=== PATIENT | female | born 1990 | race Caucasian/White ===

== ENCOUNTER 2021-02-10 08:46 | Outpatient (REF) | payer OTHER, SELFPAY ==
--- NOTE | ~2021-02-10 | XR_ITS ---
EXAMINATION: XR KNEE, LEFT CLINICAL INFORMATION: Left knee pain. COMPARISON: None TECHNIQUE: Four views of the left knee. FINDINGS: There is mild loss of medial and patellofemoral compartment joint space with tricompartmental periarticular spurring. There are no loose bodies, bony erosive changes or abnormal joint effusion. The soft tissues are normal. XR/XR knee LT 3V IMPRESSION: Tricompartment arthritic changes left knee. There is no acute fracture, dislocation or joint effusion seen.
[2021-02-10 10:37] LABS: MANUAL DIFF FLAG NO
[2021-02-10 11:02] LABS: Basophils Percent Auto 0.5 % (0-2); Eosinophils Absolute Auto 0.1 X10*3/uL (0.0-0.4); Eosinophils Percent Auto 1.6 % (0-4); Hematocrit 42.1 % (37-47); Imm Gran Abs Auto 0.02 X10*3/uL (0.00-0.03); Imm Gran Pct Auto 0.3 % (0.0-0.4); Lymphocytes Absolute Auto 2.6 X10*3/uL (1.2-4.9); Lymphocytes Percent Auto 33.9 % (20-40); Mean Corpuscular HGB Conc 33.3 g/dl (31.0-35.0); Mean Corpuscular Volume 93.3 fL (80-98); Mean Platelet Volume 10.4 fL (9.4-12.3); Monocytes Absolute Auto 0.5 X10*3/uL (0.1-1.2); Monocytes Percent Auto 5.9 % (2-11); Neutrophils Absolute Auto 4.4 X10*3/uL (2.0-8.3); Neutrophils Percent Auto 57.8 % (45-73); Platelet Count 247 X10*3/uL (160-400); Red Blood Count 4.51 X10*6/uL (4.20-5.50); White Blood Count 7.7 X10*3/uL (4.8-10.8)
[2021-02-10 11:08] LABS: Alanine Aminotransferase 9 U/L (0-31); Albumin Level 4.3 g/dL (3.5-5.0); Alkaline Phosphatase 59 U/L (39-117); Anion Gap 14 (12-20); Aspartate Amino Transferase 11 U/L (5-31); Bilirubin Total 0.6 mg/dL (0.0-1.0); Blood Urea Nitrogen 8 mg/dL (9-16); Calcium 9.4 mg/dL (8.4-10.2); Carbon Dioxide 22 mmol/L (22-29); Chloride 108 mmol/L (96-108); Cholesterol 113 mg/dL; Estimated Glomerular Filt Rate > 60; Glucose Fasting 92 mg/dL (60-99); HDL Cholesterol 37 mg/dL; LDL Cholesterol Calculated 65 mg/dl; Potassium 4.2 mmol/L (3.3-5.1); Sodium 140 mmol/L (135-145); Triglycerides 59 mg/dL
[2021-02-10 11:28] LABS: Thyroid Stimulating Hormone 2.63 uIU/mL (0.32-4.0)
== END 2021-02-10 08:47 | disposition home or self-care (01) ==
LOC: HO.LAB 08:46
PROVIDERS: PCP Internal Medicine; Visit Provider Internal Medicine
DX: M25.562 Pain in left knee (principal); E66.01 Morbid (severe) obesity due to excess calories
CPT/HCPCS: 36415; 73562; 80053; 80061; 84443; 85025

== ENCOUNTER → 2021-03-01 11:21 | Outpatient (BNVA) | payer OTHER, SELFPAY | PROVIDERS: PCP Internal Medicine; Visit Provider Advanced Practice Midwife ==

== ENCOUNTER → 2021-03-17 08:55 | Outpatient (BNVA) | payer OTHER, SELFPAY | PROVIDERS: PCP Internal Medicine; Visit Provider Advanced Practice Midwife ==

== ENCOUNTER 2021-03-22 13:10 | Outpatient (REF) | payer OTHER, SELFPAY ==
[2021-03-25 19:06] LABS: HPV mRNA E6/E7 rflx Not Detected (Not Detected)
== END 2021-03-22 13:11 | disposition home or self-care (01) ==
LOC: HO.LAB 13:10
PROVIDERS: PCP Internal Medicine; Visit Provider Advanced Practice Midwife
DX: Z30.432 Encounter for removal of intrauterine contraceptive device (principal)
CPT/HCPCS: 58301; 87624; 88142

== ENCOUNTER 2021-03-23 07:47 | Outpatient (REF) | payer OTHER, SELFPAY ==
--- NOTE | ~2021-03-23 | XR_ITS ---
EXAMINATION: KNEE X-RAY CLINICAL INFORMATION: Pain COMPARISON: Previous x-ray 02/10/2021 TECHNIQUE: Standing AP view of both knees and sunrise view of the left knee FINDINGS: Standing AP view of both knees demonstrates degenerative change at the femoral tibial joints with mild bilateral medial femoral tibial joint space narrowing, right greater than left and small lateral femoral tibial joint space osteophytes, left greater than right. [place]illie view of the left knee is unremarkable. XR/XR knee LT 2V IMPRESSION: Mild degenerative changes at the femoral tibial joints.
--- NOTE | ~2021-03-23 | XR_ITS ---
EXAMINATION: KNEE X-RAY CLINICAL INFORMATION: Pain COMPARISON: Previous x-ray 02/10/2021 TECHNIQUE: Standing AP view of both knees and sunrise view of the left knee FINDINGS: Standing AP view of both knees demonstrates degenerative change at the femoral tibial joints with mild bilateral medial femoral tibial joint space narrowing, right greater than left and small lateral femoral tibial joint space osteophytes, left greater than right. [place] view of the left knee is unremarkable. XR/XR knee standing BI IMPRESSION: Mild degenerative changes at the femoral tibial joints.
== END 2021-03-23 07:48 | disposition home or self-care (01) ==
LOC: HO.HOSX 07:47
PROVIDERS: Visit Provider Physician Assistant
DX: M17.12 Unilateral primary osteoarthritis, left knee (principal); M25.561 Pain in right knee
CPT/HCPCS: 73560; 73565; 99202

== ENCOUNTER 2021-07-06 16:00 | Outpatient (RCR) | payer OTHER, SELFPAY ==
--- NOTE | 2021-05-11 14:36 | MHC.PT.EP ---
[facility] [place] Office [place] Office [place] Office [address] Blane Romeo [address] [phone] F: [phone] F: [phone] F: [phone] F: [phone] Physical Therapy Plan of Care Date of Evaluation: Date of Surgery: Diagnosis: LEFT KNEE OA Assessment: 30 YO FEMALE REF TO PT W H/O FALLING 01/21/21 ONTO HER BUTTOCKS W LEFT KNEE FLEXED - SHE WAS REF TO ORTHO AND DX W LEFT KNEE OA AND REF TO PT. 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 FUNCTIONALLY, Pt REPORTS DIFFIC SLEEPING, W STAIR MGMT, SITTING > 1HR, STANDING, AND INCR ACTIVITY. SHE WOULD BENEFIT FROM PT TO ADDRESS PAIN AND SX MGMT FOR PROBABLE TRAUMATIC LEFT PFPS W PRE-EXISTING MECHANICAL DEFICITS. Frequency and Duration: The patient will be seen 2 x WK x 5 WKS Short Term Goals: Pt'S LEFT KNEE PAIN DECR TO 2/10 W REG ADLs IN 2 WKS Pt DEMON IMPROVED LEFT KNEE FLEX AND KENN HIP IR IN 2 WKS Pt DEMON AMB ON TM x 10 MIN IN 3 WKS Event Set Up Specialist Goals: Pt INDEP W HEP AND SELF-SX MGMT TECHN IN 5 WKS Pt DEMON RETURN TO REG ADLs AND A FITNESS ROUTINE, EVIDENT W IMPROVED LEFT SCORE BY 10 POINTS (AT EVAL 50/80) IN 5 WKS Treatment Plan: Modalities to reduce pain, spasms and effusion. Manual therapy to restore motion and function. Therapeutic exercise to improve strength and flexibility. Neuromuscular re-education for posture and balance. Therapeutic activities to return to functional activities of daily living. Electronically signed by: Sintia Davies, PT Please sign and return to therapist. Thank you for your referral.
--- NOTE | 2021-07-07 14:02 | MHC.PT.DC ---
[facility] [place] Office [place] Office [place] Office [address] Blane Romeo [address] [phone] F: [phone] F: [phone] F: [phone] F: [phone] Physical Therapy Discharge Report Diagnosis: L knee OA Date of Surgery: Date of Evaluation: 05/11/21 Date of Discharge: 07/07/21 Treatments to Date: 10 Cancellations to Date: 3 No Shows to Date: 0 Discharge Status: Achieved Goals Improved Function Discharge Summary: Pt MET PT GOALS AND IS COMPLIANT AND INDEP W HEP, HER LEFT KNEE PAIN IS SIGNIF REDUCED AND SHE HAS RESUMED REG ADLS EVIDENT W IMPROVED LEFT SCORE TO 70/80 ( AT EVAL, HER SCORE WAS 50/80). Pt DEMON INDEP FUNCT MOB , ESPEC SQUATTING AND IS D/C THIS DATE. Electronically signed by: Sintia Davies,PT Please sign and return to therapist. Thank you for your referral.
== END 2021-07-07 14:02 | disposition home or self-care (01) ==
LOC: HO.PT 16:00
PROVIDERS: Visit Provider Physician Assistant
DX: M17.12 Unilateral primary osteoarthritis, left knee (principal)
CPT/HCPCS: 97110; 97140; 97150; 97161; 97530

== ENCOUNTER → 2021-10-26 12:44 | Outpatient (BNVA) | payer OTHER, SELFPAY | PROVIDERS: PCP Internal Medicine; Referring Provider Internal Medicine; Visit Provider Surgery | DX: K64.5 Perianal venous thrombosis (principal) | CPT/HCPCS: 46600; 99202 ==

== ENCOUNTER 2023-08-17 13:36 | Outpatient (AMB) | payer OTHER, SELFPAY ==
[2023-08-17 13:47] VITALS: BP 126/74; BMI 60.2
--- NOTE | 2023-08-17 13:47 | A.OFFVIS_ITS ---
Intake Vital Signs 08/17/23 13:47 Height 5 ft 5 in Weight 362 lb BMI 60.2 BP 126/74 Intake Visit Reasons: control consult Intake Note: would like the mirena Retail Office Associate Required: No Allergies pork derived (porcine) Allergy (Intermediate, Verified 08/17/23 13:49) GI ISSUES SEAFOOD Allergy (Severe, Uncoded 08/17/23 13:49) ANAPHYLAXIS Medication List - Last Reconciled 08/17/23 by Anne Saavedra CNM No Known Home Meds Is last menstrual period known: Yes Last menstrual period: 07/30/23 Post menopausal: No HPI control consult HPI Details Patient is here because she wants to get back on control. She had had the Mirena removed in 2020 with great difficulty by 2 providers. She at the time was trying to get she has decided that now since she has not gotten she feels that that time of opportunity has passed. In addition she has struggled with her weight all her life and has lost weight in the past and then gained it back and now she wants to make a concerted effort to lose the weight and get healthier she went for an eye exam recently and the doctor told her that she might have high blood pressure because of changes he could see in her blood vessels in her eyes. She had had been told she had high blood pressure when she was young but not recently. She has not been screened for diabetes or other issues in a while but her grandmother did of kidney disease recently so she is becoming more concerned about overall health. She is not currently contraceptive thing but she has not gotten so far. She had the Mirena and would like to go back to that. She has appointments set up to see primary care and to see screw machine set up operator tool for annual exams but wants to to work on getting a Mirena and too. She has started drinking a protein shake that is coffee flavored in the morning for her breakfast and trying to avoid carbohydrates and work on eating very healthy and she goes for a walk around the [facility] for her exercise. She became tearful talking about her weight struggles. [facility] Medical History (Updated 08/17/23 @ 14:21 by Anne Saavedra CNM) Asthma Thrombosed external hemorrhoids Left knee pain Migraines Super-super obese Allergic rhinitis Surgical History History of wisdom tooth extraction History of placement of ear tubes History of History of cholecystectomy Family History Mother No problems noted. Father No problems noted. Paternal Aunt Breast cancer Social History Housing: House Alcohol intake: never Patient Tobacco Use Status: Never used Tobacco e-Cigarette/Vaping Use: Never Used Second Hand Smoke Exposure: No Substance Use Type: Marijuana service: No Current occupational status: unemployed Current occupation: rt handed Cognitive needs: No Hearing needs: No Vision needs: No Female Reproductive History Menstrual Age of Menarche: 15 Duration of menses: 6-7 days Date of last menstrual period: 07/30/23 control method: none Total pregnancies: 2 Full term: 1 Number of Living Children: 1 Ab spontaneous: 1 Date of last pap smear: 03/23/21 (negative) Physical Exam Vital Signs: Last Vital Signs BP 126/74 08/17/23 13:47 BMI result Body Mass Index 60.2 Const Other: Deferred except to notice vitals and BMI today Assessment & Plan Assessment & Plan (1) Cervical cancer screening: Comment: Negative Pap 2020 Code(s): Z12.4 - Encounter for screening for malignant neoplasm of cervix (2) Super-super obese: Code(s): E66.01 - Morbid (severe) obesity due to excess calories (3) control counseling: Comment: Will attempt Mirena insertion with next period. Code(s): Z30.09 - Encounter for other general counseling and advice on contraception Plan Discussed and applauded her desire to become healthier and lose the weight acknowledged the challenges of weight loss especially when the obesity has been lifelong. Discussed that we are probably still learning a lot about why it is so difficult to keep weight off and all the changes that happen but the watching what she eats and adding in exercise her the 2 core issues she is already trying to do that and also we discussed and I supported/encouraged that she perhaps have some support to help her stay encouraged on her journey. I offered to place a weight management referral for her while she awaits her primary care appointments and also we discussed and acknowledged the challenge of perhaps putting in a Mirena IU S notes of previous exams and the previous attempt and final ability to withdraw the IUD in 2020 were noted. We will attempt placement in this room but only with her. On 1 of its heaviest days she has been getting regular periods which is good her last period was June 30 and then again on July 30. If this pattern continues she may get her. The day before Thanksgiving but I asked her to call the office as soon as she gets her. And we will try to squeeze her in at to the best of our ability it is not able to be accomplished with this menses we will try for the next but I recommend she protect herself from with condoms going forward. She has her screw machine set up operator tool annual exam scheduled will do testing for STIs at the date of the Mirena insertion attempt. We will use room 3 Orders: Referrals Medical Weight Management Referral E66.01 - Morbid (severe) obesity due to excess calories, Z12.4 - Encounter for screening for malignant neoplasm of cervix, Z30.09 - Encounter for other general counseling and advice on contraception Coding Level of Care Code Est Pt Level 3 (00883) Diagnoses Cervical cancer screening Z12.4 Super-super obese E66.01 control counseling Z30.09
== END 2023-08-17 14:25 | disposition home or self-care (01) ==
PROVIDERS: PCP Internal Medicine; Visit Provider Advanced Practice Midwife
DX: Z12.4 Encounter for screening for malignant neoplasm of cervix (principal); E66.01 Morbid (severe) obesity due to excess calories
CPT/HCPCS: 99213

== ENCOUNTER → 2023-08-17 13:36 | Outpatient (BNVA) | payer OTHER, SELFPAY | PROVIDERS: PCP Internal Medicine; Visit Provider Advanced Practice Midwife | DX: Z12.4 Encounter for screening for malignant neoplasm of cervix (principal); Z30.09 Encounter for other general counseling and advice on contraception; E66.01 Morbid (severe) obesity due to excess calories; Z68.44 Body mass index [BMI] 60.0-69.9, adult | CPT/HCPCS: 99212 ==

== ENCOUNTER → 2023-09-07 12:44 | Outpatient (BNVA) | payer OTHER, SELFPAY | PROVIDERS: PCP Internal Medicine; Visit Provider Physician Assistant Surgical ==

== ENCOUNTER 2023-09-14 09:05 | Outpatient (AMB) | payer OTHER, SELFPAY ==
[2023-09-14 09:09] VITALS: BP 130/86; PULSE 92; O2SAT 99; BMI 59.1
--- NOTE | 2023-09-14 09:09 | A.OFFPC_ITS ---
Vital Signs 09/14/23 09:09 Height 5 ft 5 in Weight 355 lb BMI 59.1 BP 130/86 Blood Pressure Location Rt radial Position Sitting Pulse 92 Pulse Source Pulse Oximeter Pulse Oximetry (%) 99 Oxygen Delivery Method Room Air Intake Visit Reasons: Annual PE Intake Note: Patient is here today for a physical. Health Information Provider Required: No Allergies pork derived (porcine) Allergy (Intermediate, Verified 09/14/23 09:26) GI ISSUES SEAFOOD Allergy (Severe, Uncoded 09/14/23 09:26) ANAPHYLAXIS Medication List - Last Reconciled 09/14/23 by TAYE Aponte No Known Home Meds Tobacco use date assessed: 09/14/23 Dental Screening Dental Screen Date: 09/14/23 Did you have a dental visit in the last 12 months?: Yes Did you have a dental problem in the last 6 months where you did not have access to dental care?: No Was dental information given to patient?: Patient has dentist HPI Annual PE HPI Details Patient is a 33-year-old female who presents today for physical exam. Patient of Dr. Reddy. Medical history significant for super-super obese, migraines. Patient is currently in a weight management program in [place]. Pap smear normal 2020. Patient would like to hold off on tetanus vaccine. Dental exam up-to-date. Denies problems with her eyes, does not see eye doctor. No shortness of breath or chest pain. 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 [facility] Medical History Urticaria Asthma Thrombosed external hemorrhoids Left knee pain Migraines Super-super obese Allergic rhinitis Surgical History History of wisdom tooth extraction History of placement of ear tubes History of History of cholecystectomy Family History Mother No problems noted. Father No problems noted. Paternal Aunt Breast cancer Social History Housing: House Alcohol intake: never Patient Tobacco Use Status: Never used Tobacco e-Cigarette/Vaping Use: Never Used Second Hand Smoke Exposure: No Substance Use Type: Marijuana service: No Current occupational status: unemployed Current occupation: rt handed Cognitive needs: No Hearing needs: No Vision needs: No Female Reproductive History Menstrual Age of Menarche: 15 Questionnaire PHQ-9 Over the last 2 weeks, how often have you been bothered by any of the following problems? 1. Little interest or pleasure in doing things: not at all 2. Feeling down, depressed, or hopeless: not at all 3. Trouble falling or staying asleep, or sleeping too much: not at all 4. Feeling tired or having little energy: not at all 5. Poor appetite or overeating: not at all 6. Feeling bad about yourself - or that you are a failure or have let yourself or your family down: not at all 7. Trouble concentrating on things, such as reading the newspaper or watching t elevision: not at all 8. Moving or speaking so slowly that other people could have noticed. Or the opposite - being so fidgety or restless that you have been moving around a lot more than usual: not at all 9. Thoughts that you would be better off or of hurting yourself in some way: not at all Total score: 0 Depression Screening Interpretation: Negative Depression Screening Done: Yes 48107 - PHQ-9 Billing: Yes Source: Developed by Drs. Miguel Crump, Doris Del Rosario, Luc Hernandez and colleagues, with an educational brittany from [employer]. Thrive Questionnaire Date Thrive assessed: 10/21/21 AUDIT C Alcohol Use Questionnaire (AUDIT-C) 1. How often do you have a drink containing alcohol?: Never Total Score: 0 Score Reviewed/Action Taken: No YOANA-7 AMB Questionnaire YOANA-7 Date YOANA - 7 assessed: 09/14/23 Feeling nervous, anxious, or on edge: 3 = Nearly every day Not being able to stop or control worryin = Several days Worrying too much about different things: 1 = Several days Trouble relaxin = More than half the days Being so restless that it is hard to sit still: 0 = Not at all Becoming easily annoyed or irritable: 2 = More than half the days Feeling afraid as if something awful might happen: 0 = Not at all Total YOANA-7 score (0-4 normal; 5-9 mild; 10-14 moderate; 15-21 severe): 9 Source: Developed by Drs. Miguel Crump, Doris Del Rosario, Luc Hernandez and colleagues, with an educational brittany from [employer]. YOANA-7 Assessment Billing YOANA-7 Assessment Tool: YOANA-7 Assessment 16531 Review of Systems Const Denies body aches, Denies chills, Denies fever(s) and Denies headache(s) Eyes Denies change in vision ENT Denies dizziness, Denies otalgia, Denies headache(s), Denies nasal discharge, Denies sinus pain and Denies sore throat Card Denies chest pain, Denies edema, Reports leg edema (Intermittent ankles), Denies lightheadedness and Denies dyspnea Resp Denies cough, Denies dyspnea and Denies wheezing GI Denies abdominal pain, Denies constipation, Denies diarrhea, Denies nausea and Denies vomiting Denies dysuria Musc Denies myalgias Skin/Breast Denies rash Neuro Denies dizziness and Denies headache(s) Aller/Immun Denies wheezing Physical exam (Primary Care) Vital Signs: Last Vital Signs Pulse 92 09/14/23 09:09 BP 130/86 09/14/23 09:09 Pulse Ox 99 09/14/23 09:09 Oxygen Delivery Method Room Air 09/14/23 09:09 BMI result Body Mass Index 59.1 Tobacco/Smoking Status: Tobacco use Status Tobacco use date assessed 09/14/23 09/14/23 09:11 Patient Tobacco Use Status Never used Tobacco 09/14/23 09:11 e-Cigarette/Vaping Use Never Used 09/14/23 09:11 PHQ-9: PHQ-9 Score PHQ-9: Total score 0 09/14/23 09:21 Depression Screening Interpretation: Negative Thrive Assessment: Date of Thrive Assessment Date Thrive assessed 10/21/21 09/14/23 09:11 Const General: cooperative and no acute distress Orientation/consciousness: patient oriented x3 HENMT Head: Yes normocephalic and Yes atraumatic Ears: TM's normal bilaterally Face and sinus: Yes sinuses nontender Mouth: oropharynx normal and moist mucous membranes Throat: Yes posterior oropharynx normal Eyes General: appearance normal, both eyes and all related structures Pupils: Equal, round and reactive pupils present EOM: EOMs intact bilaterally Neck Neck: Yes normal visual inspection, Yes full ROM and Yes no lymphadenopathy Thyroid: Thyroid normal Resp Effort & Inspection: normal respiratory effort and able to speak in complete sentences Auscultation: clear to auscultation bilaterally, no crackles, no rales, no rhonchi and no wheezes Cardio Rate: regular rate Rhythm: regular rhythm Heart sounds: S1 normal heart sound present, S2 normal heart sound present and no murmurs GI Palpation (GI): Soft to palpation, not firm, nontender, no guarding, not rigid and no hepatosplenomegaly Auscultation: normal bowel sounds General: No CVA tenderness Back/Spine/Pelvis Back: No CVA tenderness Skin General skin exam: no rashes or lesions noted Neuro General: patient oriented x3 Cranial nerves: Yes Equal, round and reactive pupils present Gait exam (Neuro): Normal gait present Extrem General: Yes full ROM and No edema Office Procedures Flu Questionnaire Does the patient have a severe egg allergy?: No Does the patient have severe life threatening allergies?: No Does the patient have a fever or illness today?: No Has the patient ever had Guillain-[place] Syndrome?: No Has the patient ever had any past reaction to a flu shot?: No Immunizations flu vacc [id number] 6mos up(PF) 60 mcg(15 mcgx4)/0.5 mL IM syringe Performing Provider: TAYE Aponte [facility] Administered by: LAMAR Hughes on 09/14/23 09:26 Dose Route Admin Location Dispensed Lot Number Expiration Date NDC Carton Forming Machine Tender 0.5 mL IM Left Deltoid 0.5 mL [id number] 04/07/24 [id number] Next Caller VIS Given Date VIS Provided VIS Publication Date 09/14/23 Single Vaccine 21 Eligibility Eligibility Date Funding Source Not [facility] Eligible 09/14/23 Private Assessment and Plan Assessment & Plan (1) Adult general medical exam: Code(s): Z00.00 - Encounter for general adult medical examination without abnormal findings Plan: Repeat in 1 year (2) Migraines: Code(s): G43.909 - Migraine, unspecified, not intractable, without status migrainosus Plan: Stable with [id number] ibuprofen or Tylenol (3) Super-super obese: Code(s): E66.01 - Morbid (severe) obesity due to excess calories Plan: Continue with [employer] weight management program Orders: Orders Influenza [id number] Immunization Today Z23 - Encounter for immunization TSH reflex Free T4 Today Z00.00 - Encounter for general adult medical examinati on without abnormal findings Lipid Panel Today Z00.00 - Encounter for general adult medical examination without abnormal findings Vitamin D 25-OH Total Today Z00.00 - Encounter for general adult medical examination without abnormal findings Comprehensive [place]. Panel Fast Today Z00.00 - Encounter for general adult medi gaston examination without abnormal findings Complete Blood Count Auto Diff Today Z00.00 - Encounter for general adult medical examination without abnormal findings Coding Level of Care Code Est Pt Prev Care 18-39y([id number]) Diagnoses Adult general medical exam Z00.00 Migraines G43.909 Super-super obese E66.01 Additional Codes YOANA-7 Assessment Billing - YOANA-7 Assessment Tool: YOANA-7 Assessment [id number] ([id number])
== END 2023-09-14 09:41 | disposition home or self-care (01) ==
PROVIDERS: PCP Internal Medicine; Visit Provider Nurse Practitioner Family
DX: Z00.00 Encounter for general adult medical examination without abnormal findings (principal); E66.01 Morbid (severe) obesity due to excess calories; Z68.43 Body mass index [BMI] 50.0-59.9, adult; Z23 Encounter for immunization; G43.909 Migraine, unspecified, not intractable, without status migrainosus
CPT/HCPCS: 90471; 90686; 99395

== ENCOUNTER 2023-09-14 09:48 | Outpatient (REF) | payer OTHER, SELFPAY ==
[2023-09-14 15:05] LABS: CT PCR NOT DETECTED (Not Detect.); NG PCR NOT DETECTED (Not Detect.)
[2023-09-15 13:15] LABS: BV Int Neg Control Negative (Negative); BV Int Pos Control Positive (Positive)
== END 2023-09-14 09:49 | disposition home or self-care (01) ==
LOC: HO.LNP 09:48
PROVIDERS: PCP Internal Medicine; Visit Provider Advanced Practice Midwife
DX: Z32.02 Encounter for pregnancy test, result negative (principal); Z20.2 Contact with and (suspected) exposure to infections with a predominantly sexual mode of transmission; N85.2 Hypertrophy of uterus
CPT/HCPCS: 0353U; 81025; 87480; 87510; 87660

== ENCOUNTER 2023-09-14 09:48 | Outpatient (AMB) | payer OTHER, SELFPAY ==
--- NOTE | 2023-09-14 10:31 | A.OFFVIS_ITS ---
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: No Information Interpreted: non-clinical & clinical Laboratory Courier: Laboratory Courier Present (Chikiyn) Allergies pork derived (porcine) Allergy (Intermediate, Verified 09/14/23 10:33) GI ISSUES SEAFOOD Allergy (Severe, Uncoded 09/14/23 10:33) ANAPHYLAXIS Medication List - Last Reconciled 09/14/23 by Anne Saavedra CNM No Known Home Meds Is last menstrual period known: Yes Last menstrual period: 08/31/23 Post menopausal: No 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 She did have unprotected sex a few days ago. She has embarked on her weight loss journey and is very happy to be moving forward with this and is doing her shakes and has plans to do her exercise every morning before she goes to work she plans to go to [employer]. She has her next appointment at bariatric surgery on Monday. She still wants to move forward with a Mirena and was hoping that we could inserted today. Because of the unprotected intercourse and it not being with her menses even if I could see her cervix I would not inserted today however will use this visit as an opportunity to ascertain the possibility of insertion with her next menses. During this visit it was made clear that since I cannot see her cervix or palpate her cervix I would not be able to insert a Mirena I am ordering an ultrasound to assess for uterine enlargement and we will have a follow-up visit after that and then a visit after that will be with Dr. Hassan to discuss best methodology for insertion of a Mirena. [facility] Medical History (Updated 09/14/23 @ 11:34 by Anne Saavedra CNM) Urticaria Asthma Thrombosed external hemorrhoids Left knee pain Migraines Super-super obese Allergic rhinitis Surgical History History of wisdom tooth extraction History of placement of ear tubes History of History of cholecystectomy Family History Mother No problems noted. Father No problems noted. Paternal Aunt Breast cancer Social History Housing: House Alcohol intake: never Patient Tobacco Use Status: Never used Tobacco e-Cigarette/Vaping Use: Never Used Second Hand Smoke Exposure: No Substance Use Type: Marijuana service: No Current occupational status: unemployed Current occupation: rt handed Cognitive needs: No Hearing needs: No Vision needs: No Female Reproductive History Menstrual Age of Menarche: 15 Duration of menses: 6-7 days Date of last menstrual period: 08/31/23 control method: none Total pregnancies: 1 Full term: 1 Number of Living Children: 1 Date of last pap smear: 03/23/21 (negative) Physical Exam Vital Signs: Last Vital Signs BP 132/90 H 09/14/23 10:32 BMI result Body Mass Index 59.4 Const Nutritional Appearance: obese morbidly obese Chest Other: adipose Chest palpation & inspection: normal inspection of the chest and normal palpation of entire chest wall Breast/axilla inspection: normal inspection of the breasts and normal inspection of the axillae Breast/axilla palpation: normal palpation of the breasts and normal palpation of the axillae Other: Abdominally it feels like there is an abdominal mass, it could be an enlarged uterus. Patient has been getting regular menses she does feel nauseous today we will get a urine test before patient leaves to ensure lack of . Will order an ultrasound to assess for uterine enlargement. Patient is seeing bariatric surgery on Monday and they will probably be doing their independent abdominal assessments as they see fit. We will have a quick visit after the ultrasound results and her next visit after that will be with Dr. Hassan to discuss the possibility of placing a Mirena since I am not able to actually see her cervix or palpated I a.m. clear that I would not be able to insert it. Her previous Mirena was inserted after her emergency at [facility] on the OR table. External Female Exam: normal external appearance (Adipose tissue) Speculum Exam - Vagina: normal appearance of the vagina and other Speculum Exam - Cervix: Other cervical findings present (Unable to visualize cervix or fully palpate cervix,?? anterior) Bimanual exam- vagina & uterus: other (uterus difficult to assess 2' habitus) Bimanual Exam- Adnexa, other: Other (palpation of adnexae limited 2' habitus) Results AMB Test Urine AMB Test Urine Negative Last Edit by LAMAR Perez on 09/14/23 11:29 Assessment & Plan Assessment & Plan (1) control counseling: Comment: (Note previous Mirena was placed on OR table after at [facility] and removed with difficulty by 2 providers) Will attempt Mirena insertion with next period.; 09/16/2023 unable to visualize or palpate cervix. Ultrasound being order to ascertain if there was uterine enlargement. Future visit with Dr. Hassan to discuss possible Mirena insertion recommend condoms until then. test negative. Code(s): Z30.09 - Encounter for other general counseling and advice on contraception (2) Cervical cancer screening: Comment: Negative Pap 2020 Code(s): Z12.4 - Encounter for screening for malignant neoplasm of cervix (3) Women's annual routine gynecological examination: Code(s): Z01.419 - Encounter for gynecological examination (general) (routine) without abnormal findings (4) Super-super obese: Comment: Weight management referral was placed 08/17/2023. Patient has embarked on her weight loss journey is drinking shakes and has her next visit on Monday09/18/2023. Code(s): E66.01 - Morbid (severe) obesity due to excess calories (5) Bulky or enlarged uterus: Comment: Difficult to tell whether not mass is abdominal or uterine Code(s): N85.2 - Hypertrophy of uterus Plan Abdominally it feels like there is an abdominal mass,but it could be an enlarged uterus. Patient has been getting regular menses she does feel nauseous today we will get a urine test before patient leaves to ensure lack of . Will order an ultrasound to assess for uterine enlargement. Patient is seeing bariatric surgery on Monday and they will probably be doing their independent abdominal assessments as they see fit. We will have a quick visit after the ultrasound results and her next visit after that will be with Dr. Hassan to discuss the possibility of placing a Mirena since I am not able to actually see her cervix or palpate it, I am clear that I would not be able to insert it. Her previous Mirena was inserted after her emergency at [facility], on the OR table. She had no worries at all about STDs but testing was done in preparation for the Mirena. test today is negative I recommend condom use until such time as Mirena is successfully placed Her next visit will be after the ultrasound and it can be a tele visit or quick visit with me and visit after that will be to discuss how best to attempt Mirena insertion with Dr. Hassan. She has a visit Monday with bariatric surgery for further discussion about bariatric surgery she is continuing and has very happy to have started on her journey of weight loss and she is doing her shakes and will be getting her fasting blood work for her primary care provider done tomorrow, and her plan is to do her exercise in the morning at [employer] before the rest of her day. Orders: Orders US pelvic and transvaginal Today E66.01 - Morbid (severe) obesity due to excess calories, N85.2 - Hypertrophy of uterus, Z01.419 - Encounter for gynecological examination (general) (routine) without abnormal findings, Z12.4 - Encounter for screening for malignant neoplasm of cervix, Z30.09 - Encounter for other general counseling and advice on contraception Bacterial Vaginosis Panel Today Z20.2 - Contact with and (suspected) exposure to infections with a predominantly sexual mode of transmission CT NG by PCR Today Z20.2 - Contact with and (suspected) exposure to infections with a predominantly sexual mode of transmission AMB HCG Urine Test Today Z32.02 - Encounter for test, result negative Coding Level of Care Code Est Pt Prev Care 18-39y(15135) Diagnoses control counseling Z30.09 Cervical cancer screening Z12.4 Women's annual routine gynecological examination Z01.419 Super-super obese E66.01 Bulky or enlarged uterus N85.2
[2023-09-14 10:32] VITALS: BP 132/90; BMI 59.4
== END 2023-09-14 11:29 | disposition home or self-care (01) ==
PROVIDERS: PCP Internal Medicine; Visit Provider Advanced Practice Midwife
DX: Z30.09 Encounter for other general counseling and advice on contraception (principal); Z12.4 Encounter for screening for malignant neoplasm of cervix; Z01.419 Encounter for gynecological examination (general) (routine) without abnormal findings; E66.01 Morbid (severe) obesity due to excess calories; N85.2 Hypertrophy of uterus; Z32.02 Encounter for pregnancy test, result negative
CPT/HCPCS: 99395

== ENCOUNTER 2023-09-18 08:30 | Outpatient (REF) | payer OTHER, SELFPAY ==
[2023-09-18 09:20] LABS: MANUAL DIFF FLAG NO
[2023-09-18 10:02] LABS: Basophils Absolute Auto 0.1 X10*3/uL (0.0-0.2); Basophils Percent Auto 0.6 % (0-2); Eosinophils Absolute Auto 0.1 X10*3/uL (0.0-0.4); Eosinophils Percent Auto 0.6 % (0-4); Hemoglobin 14.3 g/dl (12.0-16.0); Imm Gran Abs Auto 0.02 X10*3/uL (0.00-0.03); Imm Gran Pct Auto 0.2 % (0.0-0.4); Lymphocytes Absolute Auto 2.4 X10*3/uL (1.2-4.9); Lymphocytes Percent Auto 29.8 % (20-40); Mean Corpuscular HGB Conc 33.3 g/dl (31.0-35.0); Mean Corpuscular Hemoglobin 31.6 pg (27.0-33.0); Mean Corpuscular Volume 94.9 fL (80.0-98.0); Monocytes Absolute Auto 0.5 X10*3/uL (0.1-1.2); Monocytes Percent Auto 6.1 % (2-11); Neutrophils Absolute Auto 5.1 x10*3/uL (2.0-8.3); Neutrophils Percent Auto 62.7 % (45-73); Platelet Count 146 X10*3/uL (160-400); Red Blood Count 4.53 X10*6/uL (4.20-5.50); Red Cell Distribution Width 13.3 % (11.0-16.0); White Blood Count 8.1 X10*3/uL (4.8-10.8)
== END 2023-09-18 08:31 | disposition home or self-care (01) ==
LOC: HO.LAB 08:30
PROVIDERS: Absent Provider Nurse Practitioner Family; PCP Internal Medicine; Visit Provider Surgery
DX: Z00.00 Encounter for general adult medical examination without abnormal findings (principal); E66.01 Morbid (severe) obesity due to excess calories; K21.9 Gastro-esophageal reflux disease without esophagitis; Z71.3 Dietary counseling and surveillance; Z68.43 Body mass index [BMI] 50.0-59.9, adult; Z79.899 Other long term (current) drug therapy
CPT/HCPCS: 36415; 80053; 80061; 82306; 84443; 85025

== ENCOUNTER 2023-09-18 08:30 | Outpatient (AMB) | payer OTHER, SELFPAY ==
--- OUTSIDE RECORDS SUMMARY | 2023-09-18 08:33 | XMS_ITS | Continuity of Care Document ---
Author Name Unknown Organization [facility] Address [address] [place] [address]- Care Team Providers Care Adjunct Faculty Instructor Name Role Phone Po To MARTINEZ Primary Care Physician [phone] Encounter [facility] [place]s): 11/01/19 - 11/11/19 [facility] [address] [place] [address]- [facility] Attending Physician: Eryn Tsang Admitting Physician: AdmEryn carrillo Referring Physician: AdmtrEryn Allergies, Adverse Reactions, Alerts Substance Reaction Severity Status shellfish Active Immunizations Given and Recorded Vaccine Date Status Refusal Reason influenza virus vaccine, inactivated 08/26/13 Give n tetanus/diphtheria/pertussis, acel(Tdap) 06/19/13 Given Medications Colace sodium 100 mg oral capsule 1 capsule = 100 mg, By Mouth, 2 times a day, PRN for constipation, # 60 capsule, 0 Refills, Maintenance, Capsule Start Date: 09/10/13 Stop Date: 10/10/13 Status: Ordered Double electric breast pump Double electric breast pump, See Instructions, # 1 each, Refills 0, Tot. Refills 0, Maintenance, .,09/10/13 11:01:44, Compound Start Date: 09/10/13 Status: Ordered Fioricet 325 mg-50 mg-40 mg oral tablet 1 tablet, By Mouth, Every 4 hours, PRN Headache, (not to exceed 6 tablets/day), # 60 tablet, 0 Refills, Maintenance, Tablet, 1 tablet By Mouth Every 4 hours,PRN:Headache,Instr:(not to exceed 6 tablets/day) Start Date: 05/13/13 Status: Ordered ibuprofen 600 mg oral tablet 1 tablet = 600 mg, By Mouth, Every 6 hours, # 60 tablet, 1 Refills, Maintenance, Tablet Start Date: 09/10/13 Stop Date: 10/08/13 Status: Ordered Multivitamins with Folic Acid 1 mg oral tablet 1 tablet, By Mouth, Daily, # 90 tablet, 3 Refills, Maintenance, Tablet Start Date: 03/14/13 Status: Ordered Problem List Condition Effective Dates Status Health Status Inform ant Back pain(Confirmed) Active Cholecystectomy(Confirmed) Active Depression(Confirmed) Active History of hypertension(Confirmed) Active Morbid Obesity(Confirmed) Active Right upper quadrant pain(Confirmed) Active
--- OUTSIDE RECORDS SUMMARY | 2023-09-18 08:33 | XMS_ITS | Continuity of Care Document ---
Author Name Unknown Organization [facility] Address [address] [place] [address]- Care Team Providers Care Hides Inspector Name Role Phone To Murrell MD Primary Care Physician [place] [facility] [place] [facility] [address] [place] [address]- [facility] Encounter Diagnosis Flu-like symptoms(Discharge Diagnosis) - 11/01/19 Asthma exacerbation(Discharge Diagnosis) - 11/01/19 Attending Physician: Collette MARTINEZ, Aguila Marcos Referring Physician: To Murrell MD Allergies, Adverse Reactions, Alerts Substance Reaction Severity [...] Obesity(Confirmed) Active Right upper quadrant pain(Confirmed) Active Diagnosis Diagnosis Type Effective Dates Health Status Clinical Service Informant Flu-like symptoms Discharge Diagnosis 11/01/19 Asthma exacerbation Discharge Diagnosis 11/01/19 Vital Signs Most recent to oldest [Reference Range]: 1 Height 168 cm (11/01/19 5:12 PM) Weight 176.5 kg (11/01/19 5:12 PM) Oxygen Saturation [94-100 %] 98 % (11/01/19 5:12 PM) Pulse Rate [55-90 bpm] 117 bpm *H* (11/01/19 5:12 PM) Body Mass Index [18.5-24.99] 62.54 *>HHI* (11/01/19 5:12 PM) Blood Pressure [90-138/55-84 mm Hg] 169/ 103mm Hg *H* (11/01/19 5:12 PM) Respiratory Rate [16-30 br/min] 19 br/mi n (11/01/19 5:12 PM) Temperature [96.8-100.4 DegF] 99.6 DegF (11/01/19 5:12 PM) Mode of Delivery (Oxygen) Room air (11/01/19 5:12 PM) Blood pressure sites Arm, right (11/01/19 5:12 PM) Temperature Route Oral (11/01/19 5:12 PM) Dry Weight 176.5 kg (11/01/19 5:12 PM) Weight Obtained Via Standing scale (11/01/19 5:12 PM) Dry Weight Obtained Via Standing scale (11/01/19 5:12 PM)
--- NOTE | 2023-09-18 11:12 | A.OFFVIS_ITS ---
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 59.0 HPI Details Start time: 11.02am, End time: 11.47am ?I spent 40 minutes speaking with the patient on the phone plus an additional 5 minutes reviewing and updating records for a total of 45 minutes HPI Comments History of Present Illness Details Previous weight loss efforts: Premier protein shakes and self diet and exercise Wakes up: 5.40am, Sleeps: 11pm Breakfast: 8.30am (bread) Lunch: skips Dinner: 4pm (chicken with rice or pasta) Snacks: 12pm (crackers), 1-2 snacks after dinner (chips or granola bars) Exercise: none 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 Father No problems noted. Paternal Aunt Breast cancer Social History Housing: House Alcohol intake: never Patient Tobacco Use Status: Never used Tobacco e-Cigarette/Vaping Use: Never Used Second Hand Smoke Exposure: No Substance Use Type: Marijuana service: No Current occupational status: unemployed Current occupation: rt handed Cognitive needs: No Hearing needs: No Vision needs: No Female Reproductive History Menstrual Age of Menarche: 15 Assessment & Plan Assessment & Plan (1) Morbid obesity: Code(s): E66.01 - Morbid (severe) obesity due to excess calories Plan: 1.? Plan for lap sleeve gastrectomy. If diaphragmatic or ventral hernias are present at time of surgery, these will be repaired laparoscopically as well. Risks and complications were discussed in detail including possible conversion to an open procedure, anastomotic leak, bleeding requiring transfusion, small bowel obstruction, , DVT and pulmonary embolism, cardiac, or pulmonary complications, as terminal make up operator complications such as anastomotic ulcer, insufficient weight loss and vitamin deficiencies. I emphasized the importance of close follow-up, adherence to instructions and good communication. 2. Nutritional counseling. Start with 2 CELEBRATE REBUILD protein (buy at [facility]) shakes (ONE scoop EACH in 8oz low fat unsweetened almond milk each) at 7am-9am and 10am-12pm, 2 protein bars (CELEBRATE protein bars, buy at [facility] [employer]) at 1pm-3pm and 4pm-6pm, dinner at 7pm (12 forks of protein and 12 forks of salad/vegetables) AND one more protein bar after dinner at 9pm-11pm. So you do 2 protein shakes, 3 protein bars and one meal per day. Meal to include lean meat (beef, fish, pork, turkey, chicken), or Czech yogurt, or egg whites, or beans with a salad with olive oil and fruits (berries, pears, apples, kiwi). Avoid salt, breads, potatoes, rice, pasta, desserts. 3. Each shake would be drunk slowly, like coffee in a period of 2 hours. May add your coffee into your shakes if flavors match. 4. Cut each bar in 4 pieces and eat each piece in 30min ?to make each bar last 2 hours. 5. I emphasized the importance of measuring accurately the food portion and measure it when serving the food in plate 6. The meal portions include 12 full-size forks of meat and 12 full-size forks of salad. You always eat the meat portion but you can replace up to 6 forks for salad/vegetables with rice, potatoes or pasta, or a fruit ?if you like. The less you do it the better weight loss will be. 7. One full-size fork is what it can be scooped on the fork without falling asi de and not what can be bit with the fork. Use regular forks like those you find in a typical restaurant. 8.? Please send me weight measurements as soon as possible and then once a week. Always include your diet and exercise plan. 9. If you go to the gym start treadmill with an incline of 2.0 and speed of 2.5 mph. Increase incline by 1 every 3 min to a max incline of 8.0, stay 3min at 8.0 and then return to 2.0 and repeat same steps until calorie goal is met. Goal is to burn 2000 calories per week on exercise, which means either 300 calories daily, or 400 calories 5 days per week, or 500 calories 4 days per week, or 650 calories 3 days per week. 10. The best choice would be to purchase a stationary bike, elliptical or treadmill at home that can track calories. Let me know if you do so I can give you an exercise plan. 11.?It is important of avoiding and for at least 18 months postoperatively and has been discussed at the infosession. 12. Goal is to lose at least 1.5-2lbs per week 13. Goal to lose 10% of your weight before surgery, which is about 35lbs. Ultimate weight goal: 320lbs before surgery 14. Please follow the diet plan exactly without any change. If you don't like something about the plan or you feel hungry you need to communicate with me so I can help you revise the plan. You should not change the plan yourself. Orders: Orders Insulin Today E66.01 - Morbid (severe) obesity due to excess calories, K21.9 - Gastro-esophageal reflux disease without esophagitis Hemoglobin A1c Today E66.01 - Morbid (severe) obesity due to excess calories, K21.9 - Gastro-esophageal reflux disease without esophagitis Complete Blood Count Auto Diff Today E66.01 - Morbid (severe) obesity due to excess calories, K21.9 - Gastro-esophageal reflux disease without esophagitis Vitamin B12 and Folate Today E66.01 - Morbid (severe) obesity due to excess calories, K21.9 - Gastro-esophageal reflux disease without esophagitis C Reactive Protein Today E66.01 - Morbid (severe) obesity due to excess calories, K21.9 - Gastro-esophageal reflux disease without esophagitis Ferritin Today E66.01 - Morbid (severe) obesity due to excess calories, K21.9 - Gastro-esophageal reflux disease without esophagitis US abdomen comp w elastography Today E66.01 - Morbid (severe) obesity due to excess calories, K21.9 - Gastro-esophageal reflux disease without esophagitis ECG 12 lead EKG Today E66.01 - Morbid (severe) obesity due to excess calories, K21.9 - Gastro-esophageal reflux disease without esophagitis H Pylori Breath Test Today E66.01 - Morbid (severe) obesity due to excess calories, K21.9 - Gastro-esophageal reflux disease without esophagitis IRON PROFILE Today E66.01 - Morbid (severe) obesity due to excess calories, K21.9 - Gastro-esophageal reflux disease without esophagitis Comprehensive Met. Panel Today E66.01 - Morbid (severe) obesity due to excess calories, K21.9 - Gastro-esophageal reflux disease without esophagitis Zinc Today E66.01 - Morbid (severe) obesity due to excess calories, K21.9 - Gastro-esophageal reflux disease without esophagitis Vitamin B1 Today E66.01 - Morbid (severe) obesity due to excess calories, K21.9 - Gastro-esophageal reflux disease without esophagitis Vitamin A Today E66.01 - Morbid (severe) obesity due to excess calories, K21.9 - Gastro-esophageal reflux disease without esophagitis XR chest 2V Today E66.01 - Morbid (severe) obesity due to excess calories, K21.9 - Gastro-esophageal reflux disease without esophagitis FL upper GI w air Today E66.01 - Morbid (severe) obesity due to excess calories, K21.9 - Gastro-esophageal reflux disease without esophagitis Referrals Nutrition/Dietitian Referral E66.01 - Morbid (severe) obesity due to excess calories, K21.9 - Gastro-esophageal reflux disease without esophagitis Behavioral Health Referral E66.01 - Morbid (severe) obesity due to excess calories, K21.9 - Gastro-esophageal reflux disease without esophagitis Telehealth Telehealth Location of provider rendering services: practice address Location of patient: address on file Patient Identification confirmed using: Name, : Yes Telehealth method: voice only Patient verbally consented to treatment: Yes Patient verbally consented to billing insurance company: Yes Patient informed of any privacy concerns related to visit: Yes Minutes spent on Phone/Video with Pt.: 45 Coding Level of Care Code Tele New Pt Level 4 (81039) Diagnoses Morbid obesity E66.01 Time Spent (min) 45
[2023-09-18 11:24] VITALS: BMI 59.0
== END 2023-09-18 11:48 | disposition home or self-care (01) ==
LOC: HO.HBS 08:31
PROVIDERS: PCP Internal Medicine; Visit Provider Surgery
DX: E66.01 Morbid (severe) obesity due to excess calories (principal)
CPT/HCPCS: 99204

== ENCOUNTER 2023-09-27 07:43 | Outpatient (REF) | payer OTHER, SELFPAY ==
[2023-09-27 07:58] LABS: MANUAL DIFF FLAG NO
[2023-09-27 09:08] LABS: Basophils Percent Auto 0.4 % (0-2); Eosinophils Absolute Auto 0.1 X10*3/uL (0.0-0.4); Eosinophils Percent Auto 1.2 % (0-4); Hematocrit 42.1 % (37.0-47.0); Hemoglobin 14.1 g/dl (12.0-16.0); Imm Gran Abs Auto 0.02 X10*3/uL (0.00-0.03); Imm Gran Pct Auto 0.3 % (0.0-0.4); Lymphocytes Absolute Auto 2.1 X10*3/uL (1.2-4.9); Lymphocytes Percent Auto 28.2 % (20-40); Mean Corpuscular HGB Conc 33.5 g/dl (31.0-35.0); Mean Corpuscular Hemoglobin 31.1 pg (27.0-33.0); Mean Corpuscular Volume 92.7 fL (80.0-98.0); Mean Platelet Volume 10.3 fL (9.4-12.3); Monocytes Absolute Auto 0.6 X10*3/uL (0.1-1.2); Monocytes Percent Auto 8.1 % (2-11); Neutrophils Absolute Auto 4.5 x10*3/uL (2.0-8.3); Neutrophils Percent Auto 61.8 % (45-73); Platelet Count 230 X10*3/uL (160-400); Red Blood Count 4.54 X10*6/uL (4.20-5.50); Red Cell Distribution Width 13.2 % (11.0-16.0); White Blood Count 7.3 X10*3/uL (4.8-10.8)
[2023-09-27 09:20] LABS: Estimated Average Glucose 97 mg/dL
[2023-09-27 10:03] LABS: Alanine Aminotransferase 10 U/L (0-31); Albumin Level 4.4 g/dL (3.5-5.0); Alkaline Phosphatase 50 U/L (39-117); Anion Gap 13 (12-20); Aspartate Amino Transferase 13 U/L (5-31); Bilirubin Total 0.7 mg/dL (0.0-1.0); Blood Urea Nitrogen 16 mg/dL (9-16); C Reactive Protein 1.27 mg/dL (< or = 0.50); Calcium 9.6 mg/dL (8.4-10.2); Carbon Dioxide 23 mmol/L (22-29); Chloride 108 mmol/L (96-108); Estimated Glomerular Filt Rate > 60; Glucose Random 85 mg/dL (60-115); Iron 78 mcg/dL (30-160); Percent Iron Saturation 27 % (15-50); Potassium 4.1 mmol/L (3.3-5.1); Sodium 140 mmol/L (135-145); Total Iron Binding Capacity 287 mcg/dL (228-428); Total Protein 7.6 g/dL (6.5-8.0); Unsaturated Iron Binding 209 ug/dL
[2023-09-27 10:04] LABS: Ferritin 94 ng/mL (10-122); Insulin 13 uU/mL (2-29)
[2023-09-27 10:10] LABS: Folate 11.3 ng/mL (> or = 4.0); Vitamin B12 460 pg/mL (200-900)
[2023-10-01 09:49] LABS: Vitamin B1 10 nmol/L (8-30)
[2023-10-01 16:33] LABS: Zinc 71 mcg/dL (60-130)
[2023-10-02 19:54] LABS: Vitamin A 37 mcg/dL (38-98)
== END 2023-09-27 07:44 | disposition home or self-care (01) ==
LOC: HO.LAB 07:43
PROVIDERS: PCP Internal Medicine; Visit Provider Surgery
DX: E66.01 Morbid (severe) obesity due to excess calories (principal); K21.9 Gastro-esophageal reflux disease without esophagitis
CPT/HCPCS: 36415; 80053; 82607; 82728; 82746; 83036; 83525; 83540; 84425; 84590; 84630; 85025; 86140

== ENCOUNTER → 2023-10-06 08:13 | Outpatient (BNVA) | payer SELFPAY | PROVIDERS: PCP Internal Medicine; Visit Provider Surgery ==

== ENCOUNTER 2023-10-16 13:03 | Outpatient (AMB) | payer OTHER, SELFPAY ==
--- NOTE | 2023-10-16 12:56 | MHC.AMNUTRGE ---
Intake Intake Visit Reasons: VIDEO Initial Nutrition SWL Allergies pork derived (porcine) Allergy (Intermediate, Verified 09/18/23 11:12) GI ISSUES SEAFOOD Allergy (Severe, Uncoded 09/18/23 11:12) ANAPHYLAXIS HPI Nutrition Presentation Reason for consult elevated BMI Diet Assmnt Details Pt reports she is doing great with her nutrition plan. She is using the premier shakes. The only thing she reports struggling with is decreasing coffee She had some questions about her labs which were answered today Completed online classes but scoreed 37% on class 4 Previous weight loss methods attempted 1 year ago lost 40# from 380 down to 340# Dietary counseling reduction Who buys your food self Who prepares/cooks your food self Meal frequency regular: lunch (12pm ), dinner (3pm dinner) and snacks (chips, granola bar in the evening) and never: breakfast Lifestyle Eating out 1-3 times/week Food frequency Grains/pasta/breads/cereal (carbs): daily, Meats/poultry/fish (protein): daily, Meat substitutes/nuts/seeds/legumes: daily, Processed foods/meats: daily, Restaurants/fast foods: several times weekly, Water: daily (crystal light and seltzer) and Coffee: daily (4c per day ) Diagnosis Nutrition problem #1 overweight/obesity As related to (etiology) #1 excess energy intake and physical inactivity As evidenced by (sign/symptom) #1 high BMI Monitoring/Goals Nutrition problem monitoring total energy intake, level of knowledge/skill, total PRO intake, total CHO intake, weight and oral fluids Outcome progress progressing Learning/Education Readiness to learn good Stages of change action Educational materials provided Yes Most Recent Diabetes Results: Creatinine 0.73 mg/dL (0.5-1.4) 09/27/23 Blood Urea Nitrogen 16 mg/dL (9-16) 09/27/23 Sodium 140 mmol/L (135-145) 09/27/23 Potassium 4.1 mmol/L (3.3-5.1) 09/27/23 Chloride 108 mmol/L (96-108) 09/27/23 Carbon Dioxide 23 mmol/L (22-29) 09/27/23 Calcium 9.6 mg/dL (8.4-10.2) 09/27/23 AST 13 U/L (5-31) 09/27/23 ALT 10 U/L (0-31) 09/27/23 Total Protein 7.6 g/dL (6.5-8.0) 09/27/23 Albumin 4.4 g/dL (3.5-5.0) 09/27/23 [facility] Medical History (Updated 10/13/23 @ 19:40 by Danny Medley MD) GERD (gastroesophageal reflux disease) Morbid obesity Urticaria Asthma Thrombosed external hemorrhoids Left knee pain Migraines Super-super obese Allergic rhinitis Surgical History History of wisdom tooth extraction History of placement of ear tubes History of History of cholecystectomy Family History Mother No problems noted. Father No problems noted. Paternal Aunt Breast cancer Social History Housing: House Alcohol intake: never Patient Tobacco Use Status: Never used Tobacco e-Cigarette/Vaping Use: Never Used Second Hand Smoke Exposure: No Substance Use Type: Marijuana service: No Current occupational status: unemployed Current occupation: rt handed Cognitive needs: No Hearing needs: No Vision needs: No Female Reproductive History Menstrual Age of Menarche: 15 Assessment & Plan Assessment & Plan (1) Morbid obesity: Code(s): E66.01 - Morbid (severe) obesity due to excess calories Plan nutrition follow up 11/16 Telehealth Telehealth Location of provider rendering services: practice address Location of patient: address on file Patient Identification confirmed using: Name, : Yes Telehealth method: voice only Patient verbally consented to treatment: Yes Patient verbally consented to billing insurance company: Yes Patient informed of any privacy concerns related to visit: Yes Minutes spent on Phone/Video with Pt.: 20 Coding Level of Care Code Nutr Indiv Intake (89022) Diagnoses Morbid obesity E66.01 Time Spent (min) 20
== END 2023-10-16 13:41 | disposition home or self-care (01) ==
LOC: HO.HBS 13:03
PROVIDERS: PCP Internal Medicine; Visit Provider Dietitian, Registered
DX: E66.01 Morbid (severe) obesity due to excess calories (principal)

== ENCOUNTER → 2023-10-16 13:03 | Outpatient (BNVA) | payer OTHER, SELFPAY | PROVIDERS: PCP Internal Medicine; Visit Provider Dietitian, Registered | DX: E66.01 Morbid (severe) obesity due to excess calories (principal) | CPT/HCPCS: 97802 ==

== ENCOUNTER → 2023-10-18 08:39 | Outpatient (REF) | payer OTHER, SELFPAY ==
--- NOTE | ~2023-10-18 | XR_ITS ---
EXAMINATION: XR CHEST CLINICAL INFORMATION: Morbid obesity COMPARISON: 11/18/2018 TECHNIQUE: 2 views of the chest were obtained. FINDINGS: Lungs are clear cardiomediastinal silhouette is normal. Seen on the previous examination opacity in the right middle lobe has been resolved. Osseous structures are unremarkable. XR/XR chest 2V IMPRESSION: No active cardiopulmonary disease
--- NOTE | 2023-10-18 09:04 | ECG_ITS ---
Test Reason : e66.01 Blood Pressure : / mmHG Vent. Rate : 072 BPM Atrial Rate : 072 BPM P-R Int : 170 ms QRS Dur : 090 ms QT Int : 386 ms P-R-T Axes : 062 089 019 degrees QTc Int : 422 ms Normal sinus rhythm Normal ECG When compared with ECG of 15-JUL-2013 10:33, No significant change was found Referred By: Danny Medley Electronically Signed By:BASIM KING MD
== END ==
LOC: HO.CARD 08:39
PROVIDERS: PCP Internal Medicine; Visit Provider Surgery
DX: E66.01 Morbid (severe) obesity due to excess calories (principal); K21.9 Gastro-esophageal reflux disease without esophagitis
CPT/HCPCS: 71046; 93005

== ENCOUNTER → 2023-10-18 09:04 | Outpatient (BNV) | payer OTHER, SELFPAY | PROVIDERS: PCP Internal Medicine; Visit Provider Internal Medicine Cardiovascular Disease | DX: Z01.810 Encounter for preprocedural cardiovascular examination (principal) | CPT/HCPCS: 93010 ==

== ENCOUNTER 2023-10-20 09:25 | Outpatient (REF) | payer OTHER, SELFPAY ==
--- NOTE | ~2023-10-20 | US_ITS ---
EXAMINATION: US COMPLETE ABDOMEN WITH LIVER ELASTOGRAPHY CLINICAL INFORMATION: Morbid obesity. COMPARISON: No recent relevant comparison. TECHNIQUE: Real-time imaging of the abdominal viscera. Noninvasive ultrasound liver fibrosis assessment is performed using Jony ElastPQ point quantification shear wave elastography (2D-SWE) with a C5-2 MHz transducer. Multiple elastography samples are obtained. FINDINGS: PANCREAS: Normal. The visualized pancreatic head and body are normal in appearance. The remainder of the pancreas is obscured from visualization by the overlying bowel gas. ABDOMINAL AORTA: The proximal, middle, and distal aortic segments are normal in caliber. INFERIOR VENA CAVA: Visualized portions are normal. LIVER: Liver has normal size and contour. The parenchyma is diffusely hyperechoic. No focal liver lesion or intrahepatic ductal dilatation. The right lobe measures approximately 17 cm in length. The left lobe measures 9.2 cm in length. Portal flow is Shear wave liver elastography median stiffness is 1.78 m/s (reference: normal median stiffness is 1.3 m/s or less). IQR/median stiffness to assess sampling precision is 0.12 (reference: good quality data set is IQR/median stiffness of 0.15 or less). GALLBLADDER: Surgically absent. COMMON BILE DUCT: Normal in caliber measuring 0.4 cm in diameter. RIGHT KIDNEY: Normal. No hydronephrosis. No renal calculi or focal parenchymal lesions. The kidney measures approximately 10.5 cm in maximum dimension. LEFT KIDNEY: Normal. No hydronephrosis. No renal calculi or focal parenchymal lesions. The kidney measures approximately 12 cm in maximum dimension. SPLEEN: Normal. The spleen measures 10.6 cm in maximum dimension. FREE FLUID: None. US/US abdomen comp w elastography IMPRESSION: Liver is diffusely hyperechoic, consistent with steatosis. Shear wave liver elastography median stiffness is 1.78 m/s (reference: normal median stiffness is 1.3 m/s or less). Findings suggestive of compensated advanced chronic liver disease but need further test for confirmation. REFERENCE: Society of Radiologists in Ultrasound Liver Stiffness Thresholds (2020): LIVER STIFFNESS THRESHOLDS: *Liver Stiffness equal or less than 1.3 m/s: High probability of being normal. *Liver Stiffness less than 1.7 m/s: In the absence of other known clinical signs, rules out compensated advanced chronic liver disease. *Liver Stiffness 1.7-2.1 m/s: Suggestive of compensated advanced chronic liver disease but need further test for confirmation. *Liver Stiffness over 2.1 m/s: Rules in compensated advanced chronic liver disease. *Liver Stiffness over 2.4 m/s: Suggestive of clinically significant portal hypertension. QUALITY OF DATA SET: *IQR/Median value equal or less than 0.15 implies a quality data set. *IQR/Median value over 0.15 implies a poor quality data set. OTHER CONSIDERATIONS: The stage of liver fibrosis may be overestimated in the setting of acute hepatitis, liver inflammation, elevated liver function tests, hepatic vascular congestion, obstructive cholestasis, non-fasting state, and infiltrative diseases such as amyloidosis and lymphoma. In some patients with NAFLD, the liver stiffness thresholds for compensated advanced chronic liver disease may be lower. In causes other than viral hepatitis and NAFLD, liver stiffness thresholds are not well established.
== END 2023-10-20 09:26 | disposition home or self-care (01) ==
LOC: HO.US 09:25
PROVIDERS: PCP Internal Medicine; Visit Provider Surgery
DX: E66.01 Morbid (severe) obesity due to excess calories (principal); K21.9 Gastro-esophageal reflux disease without esophagitis
CPT/HCPCS: 76705; 76981

== ENCOUNTER 2023-10-23 08:32 | Outpatient (AMB) | payer OTHER, SELFPAY ==
--- NOTE | 2023-10-23 11:16 | A.OFFVIS_ITS ---
Intake Intake Visit Reasons: TV Follow Up SWL - 1ST Allergies pork derived (porcine) Allergy (Intermediate, Verified 09/18/23 11:12) GI ISSUES SEAFOOD Allergy (Severe, Uncoded 09/18/23 11:12) ANAPHYLAXIS HPI TV Follow Up SWL - 1ST 2 HPI Details Start time: 11.05am, End time: 11.25am ?I spent 15 minutes speaking with the patient on the phone plus an additional 5 minutes reviewing and updating records for a total of 20 minutes HPI Comments History of Present Illness Details Overall weight loss: 18.2lbs, or 5.13% TBWL Is doing 2 Premier premade shakes (4oz of the shake with 4oz almond milk), 3 [employer] protein bars and one meal (12 forks of protein and 12 forks of salad or vegetables) Exercise: is doing the treadmill x 3/wk for [facility] Medical History (Updated 10/13/23 @ 19:40 by Danny Medley MD) GERD (gastroesophageal reflux disease) Morbid obesity Urticaria Asthma Thrombosed external hemorrhoids Left knee pain Migraines Super-super obese Allergic rhinitis Surgical History History of wisdom tooth extraction History of placement of ear tubes History of History of cholecystectomy Family History Mother No problems noted. Father No problems noted. Paternal Aunt Breast cancer Social History Housing: House Alcohol intake: never Patient Tobacco Use Status: Never used Tobacco e-Cigarette/Vaping Use: Never Used Second Hand Smoke Exposure: No Substance Use Type: Marijuana service: No Current occupational status: unemployed Current occupation: rt handed Cognitive needs: No Hearing needs: No Vision needs: No Female Reproductive History Menstrual Age of Menarche: 15 Assessment & Plan Assessment & Plan (1) Morbid obesity: Code(s): E66.01 - Morbid (severe) obesity due to excess calories Plan: 1. Continue same nutritional plan of 2 Premier premade shakes (4oz of the shake with 4oz almond milk), 3 [employer] protein bars and one meal (12 forks of protein and 12 forks of salad or vegetables) 2. Increase exercise to 5 days per week and try to burn 200 calories on treadmill and 200 calories on the bike per work-out, 5 days per week. Goal is to burn 2000 calories per week. 3. Continue to send me weight measurements weekly on Saturdays Telehealth Telehealth Location of provider rendering services: practice address Location of patient: address on file Patient Identification confirmed using: Name, : Yes Telehealth method: voice only Patient verbally consented to treatment: Yes Patient verbally consented to billing insurance company: Yes Patient informed of any privacy concerns related to visit: Yes Minutes spent on Phone/Video with Pt.: 20 Coding Level of Care Code Tele Est Pt Level 3 (00397) Diagnoses Morbid obesity E66.01 Time Spent (min) 20
== END 2023-10-23 11:26 | disposition home or self-care (01) ==
LOC: HO.HBS 08:32
PROVIDERS: PCP Internal Medicine; Visit Provider Surgery
DX: E66.01 Morbid (severe) obesity due to excess calories (principal)
CPT/HCPCS: 99213

== ENCOUNTER → 2023-10-23 08:32 | Outpatient (BNVA) | payer OTHER, SELFPAY | PROVIDERS: PCP Internal Medicine; Visit Provider Surgery ==

== ENCOUNTER 2023-10-25 10:09 | Day surgery (SDC) | payer OTHER, SELFPAY ==
--- NOTE | 2023-10-20 23:43 | P.HPSUR_ITS ---
Pre-Procedural Eval Section A Date of Service: 10/20/23 The patient is an INPATIENT: No The History & Physical has been completed within 30 days and I have reviewed it.: Yes Section B Chief Complaint: Morbid (severe) obesity due to excess calories Details of Present Illness: GERD Relevant Family History (Specify if Yes): No Relevant Social History: None Present Medications: None Medical History: No relevant PMH History of Previous Operations: No relevant previous surgery Allergies: Allergies Allergy/AdvReac Type Severity Reaction Status Date / Time pork derived (porcine) Allergy Intermediate GI ISSUES Verified 09/18/23 11:12 SEAFOOD Allergy Severe ANAPHYLAXIS Uncoded 09/18/23 11:12 Review of Systems Sugical H&P ROS: Negative: Constitution, Cardiovascular, Respiratory, Neurolog ical, Psychiatric, Hem-Onc, Allergic/Immunologic, Gastrointestinal, Genitourinary, Musculoskeletal, Integumentary, Endocrine and Eyes/Ears/Nose/Throat Exam Surgical H&P Exam: Normal: HEENT, Normal: Heart, Normal: Lungs, Normal: Extremities, Normal: Abdomen, Normal: Skin and Normal: Neurological Plan Diagnosis/Plan: Unchanged (EGD to assess for esophagitis. Risks for perforation and bleeding were discussed with patient. She is in agreement with the plan) I have reviewed the history and physical and performed a pertinent physical examination on my patient. No changes have occurred unless specified. Time Spent With Patient Time: Total time managing care of this patient today ____ minutes.
[2023-10-23 11:35] VITALS: BMI 59.0
--- NOTE | 2023-10-23 12:15 | P.CONAN_ITS ---
Documented by User: Lsahaun Nascimento NP 10/23/23 12:16 HPI - Anesthesia Eval Consult details Narrative: 33yo F for Upper Endoscopy PMFSH Active Problems Active Problems: All Active Problems (Updated 10/13/23 @ 19:40 by Danny Medley MD) Vitamin A deficiency (Acute) GERD (gastroesophageal reflux disease) (Acute) Morbid obesity (Acute) Bulky or enlarged uterus (Acute) Adult general medical exam (Acute) control counseling (Acute) Cervical cancer screening (Acute) Patient desires (Acute) Women's annual routine gynecological examination (Acute) Thrombosed external hemorrhoids (Acute) External hemorrhoids (Acute) Osteoarthritis of left knee (Acute) Right knee pain (Acute) Left knee pain (Acute) Migraines (Acute) Super-super obese (Acute) Allergic rhinitis (Acute) Past Medical History Medical History Arthritis GERD (gastroesophageal reflux disease) Morbid obesity Asthma Thrombosed external hemorrhoids Left knee pain Migraines Super-super obese Allergic rhinitis Urticaria Family History Family History Mother No problems noted. Father No problems noted. Paternal Aunt Breast cancer Surgical History Surgical History History of wisdom tooth extraction History of placement of ear tubes History of History of cholecystectomy Social History Social History (Updated 10/25/23 @ 11:57 by Tonia Flores MD) Housing: House Alcohol intake: never Patient Tobacco Use Status: Never used Tobacco e-Cigarette/Vaping Use: Never Used Second Hand Smoke Exposure: No Substance Use Type: Marijuana service: No Current occupational status: unemployed Current occupation: rt handed Cognitive needs: No Hearing needs: No Vision needs: No Meds Allergies Allergy/AdvReac Type Severity Reaction Status Date / Time pork derived (porcine) Allergy Intermediate GI ISSUES Verified 10/25/23 10:48 SEAFOOD Allergy Severe ANAPHYLAXIS Uncoded 09/18/23 11:12 Home Medications Medication Instructions Recorded Confirmed Last Taken Type albuterol sulfate 90 mcg/actuation 2 puff inhalation Q6H PRN 09/18/23 10/25/23 Unknown History aerosol inhaler (ProAir HFA) Shortness Of Breath Exam Height,Weight and Vital Signs: Height 5 ft 5 in Weight 160.742 kg Pertinent Lab Results Pertinent Lab Results: Laboratory Tests 09/27/23 07:56 WBC 7.3 Hgb 14.1 Hct 42.1 Plt Count 230 D Sodium 140 Potassium 4.1 Chloride 108 Carbon Dioxide 23 BUN 16 Creatinine 0.73 Narrative Narrative: EKG 10/2023 Vent. Rate : 072 BPM Atrial Rate : 072 BPM P-R Int : 170 ms QRS Dur : 090 ms QT Int : 386 ms P-R-T Axes : 062 089 019 degrees QTc Int : 422 ms Normal sinus rhythm Normal ECG When compared with ECG of 15-JUL-2013 10:33, No significant change was found Assessment and Plan Assessment Anesthesia Assessment: Chart Reviewed Documented by User: Tonia Flores MD 10/25/23 11:59 [facility] Active Problems Active Problems: All Active Problems (Updated 10/25/23 @ 10:49 by Tonia Flores MD) Vitamin A deficiency (Acute) GERD (gastroesophageal reflux disease) (Acute) Morbid obesity (Acute) BMI 56.1 Bulky or enlarged uterus (Acute) Adult general medical exam (Acute) control counseling (Acute) Cervical cancer screening (Acute) Patient desires (Acute) Women's annual routine gynecological examination (Acute) Thrombosed external hemorrhoids (Acute) External hemorrhoids (Acute) Osteoarthritis of left knee (Acute) Right knee pain (Acute) Left knee pain (Acute) Migraines (Acute) Super-super obese (Acute) Allergic rhinitis (Acute) Denies ELIUD Past Medical History Medical History Arthritis GERD (gastroesophageal reflux disease) Morbid obesity Asthma Thrombosed external hemorrhoids Left knee pain Migraines Super-super obese Allergic rhinitis Urticaria Family History Family History Mother No problems noted. Father No problems noted. Paternal Aunt Breast cancer Family history of problems with anesthesia: No Surgical History Surgical History History of wisdom tooth extraction History of placement of ear tubes History of History of cholecystectomy History of Problems with Anesthesia: No Social History Social History (Updated 10/25/23 @ 11:57 by Tonia Flores MD) Housing: House Alcohol intake: never Patient Tobacco Use Status: Never used Tobacco e-Cigarette/Vaping Use: Never Used Second Hand Smoke Exposure: No Substance Use Type: Marijuana service: No Current occupational status: unemployed Current occupation: rt handed Cognitive needs: No Hearing needs: No Vision needs: No Meds Allergies Allergy/AdvReac Type Severity Reaction Status Date / Time pork derived (porcine) Allergy Intermediate GI ISSUES Verified 10/25/23 10:48 SEAFOOD Allergy Severe ANAPHYLAXIS Uncoded 09/18/23 11:12 Home Medications Medication Instructions Recorded Confirmed Last Taken Type albuterol sulfate 90 mcg/actuation 2 puff inhalation Q6H PRN 09/18/23 10/25/23 Unknown History aerosol inhaler (ProAir HFA) Shortness Of Breath Exam Height,Weight and Vital Signs: Height 5 ft 5 in Weight 160.742 kg Vital Signs Temp Pulse Resp BP Pulse Ox O2 Del Method 10/25/23 10:54 97.8 F 76 16 128/73 98 Room Air Pertinent Lab Results Pertinent Lab Results: Laboratory Tests 09/27/23 07:56 WBC 7.3 Hgb 14.1 Hct 42.1 Plt Count 230 D Sodium 140 Potassium 4.1 Chloride 108 Carbon Dioxide 23 BUN 16 Creatinine 0.73 Lab Results 10/25/23 Range/Units 10:45 Urine Test NEGATIVE (NEGATIVE) Airway Mallampati Class: II TM Dist: >3cm Neck ROM: Full Loose/Missing/Broken Teeth: No Heart: RRR Lungs: CTAB Assessment and Plan Assessment Anesthesia Assessment: Anesthesia Plan Discussed Final Anesthetic Review Family History of Problems with Anesthesia: No History of Problems with Anesthesia: No NPO: Yes ASA Class: III Final Preanesthetic Review: No Changes in Pt Med Stat, Meds/Allgs Chart Reviewed, Consent Obtained/Reviewed and Anes Risks/Benef Reviewed Patient Risk: Intermediate Procedure Risk: Low Assessment/Block/Sedation in SS: Assess/Block/Sedation-SS Anesthetic Plan Anesthetic Plan: TIVA Disposition: Standard PACU
[2023-10-25 10:41] VITALS: BMI 56.1
[2023-10-25 10:54] VITALS: BP 128/73; PULSE 76; RESP 16; TEMP 36.6; O2SAT 98
[2023-10-25 10:59] LABS: UPreg QC Valid YES
[2023-10-25 11:05] LABS: Urine Pregnancy NEGATIVE (NEGATIVE)
[2023-10-25] MEDS: Lactated Ringers 1,000 ML 80 ML IVCONT (11:06)
--- NOTE | 2023-10-25 11:23 | PM.OP ---
Brief Operative Note Date of Service: 10/25/23 Pre-op diagnosis: GERD Post-op diagnosis: same Procedure: PROCEDURE DATE: 10/25/2023 PREOPERATIVE DIAGNOSIS: GERD POSTOPERATIVE DIAGNOSIS: ?Same as above. 1) distal gastritis PROCEDURE: [id number] with biopsies Surgeon: Alanna Medley M.D.. Ph.D. Airport Utility Worker: None ? Anesthesia: IV sedation Estimated blood loss: ?Minimal FINDINGS AND PROCEDURE: ? OPERATIVE INDICATIONS: ?The patient is a 33 year old female known to me who is interested in bariatric surgery. The patient has GERD and I would like to assess for esophagitis. Based on this information I recommended an upper endoscopy to evaluate the patient's symptoms. Risks and complications of the surgery were discussed with the patient in advance particularly the possibility of perforation or bleeding that may require surgical intervention. The patient understood the risks and was in agreement with the plan. ? PROCEDURE: After informed consent was obtained by the patient, the patient was ?transferred to the Operating Room and was placed in the supine position.? After successful induction of IV sedation, a mouth block was inserted and the patient was placed in the left lateral decubitus position. An upper endoscopy was performed next, the oropharynx and esophagus appeared within the normal limits. There was no hiatal hernia. The z-line was smooth. Two biopsies were obtained from the distal esophagus 2-3 cm proximal to the GE junction and two additional biopsies from the GE junction. The stomach was entered and it appeared to be of normal size. There was mild gastritis at distal antrum. There was no stricture or ulcer. A biopsy was obtained from the distal antrum and gastric fundus. No significant bleeding was noted from any of the biopsy sites. The scope was then advanced into the duodenum which appeared to be normal as well. At that point the duodenum ?and the stomach were decompressed and the scope was withdrawn from the patient's mouth. The patient extubated and was transferred in stable condition to the Recovery Room for further care. I was present and performed all steps of the procedure. There were no residents to assist with this case. Alberto Medley M.D., Ph.D. Surgeon: Danny Medley MD Anesthesia: MAC Was an Airport Utility Worker used for this Procedure?: No Estimated blood loss (mL): 0 IV fluids (mL): 400 Urine output (mL): 0 Pathology: other (1) Antrum x1, 2) Fundus x1, 3) GE junction x2, 4) distal esophagus x2) Condition: stable Disposition: PACU
[2023-10-25 12:07] VITALS: BP 106/53; PULSE 75; RESP 16; TEMP 36.1; O2SAT 98
[2023-10-25 12:22] VITALS: BP 123/68; PULSE 70; RESP 18; TEMP 36.2; O2SAT 96
== END 2023-10-25 12:51 | disposition home or self-care (01) ==
PROVIDERS: Nurse Practitioner; PCP Internal Medicine; Visit Provider Surgery
PROC: 0DJ08ZZ Inspection of Upper Intestinal Tract, Via Natural or Artificial Opening Endoscopic (ICD-10-PCS; CPT 43235; principal; 2023-10-25 12:40)
DX: E66.01 Morbid (severe) obesity due to excess calories (principal); Z68.43 Body mass index [BMI] 50.0-59.9, adult; K21.9 Gastro-esophageal reflux disease without esophagitis; K29.70 Gastritis, unspecified, without bleeding
CPT/HCPCS: 43239; 81025; 88305; 88342; J2250; J2704

== ENCOUNTER → 2023-10-25 10:09 | Outpatient (BNV) | payer OTHER, SELFPAY | PROVIDERS: PCP Internal Medicine; Visit Provider Surgery | DX: K21.9 Gastro-esophageal reflux disease without esophagitis (principal); K29.70 Gastritis, unspecified, without bleeding | CPT/HCPCS: 43239 ==

== ENCOUNTER 2023-10-30 09:16 | Outpatient (AMB) | payer OTHER, SELFPAY ==
--- NOTE | 2023-10-30 08:38 | MHC.WMTHER ---
Intake Intake Visit Reasons: VIDEO BH Intake Allergies pork derived (porcine) Allergy (Intermediate, Verified 10/25/23 10:48) GI ISSUES SEAFOOD Allergy (Severe, Uncoded 09/18/23 11:12) ANAPHYLAXIS [facility] Medical History Arthritis GERD (gastroesophageal reflux disease) Morbid obesity Asthma Thrombosed external hemorrhoids Left knee pain Migraines Super-super obese Allergic rhinitis Urticaria Surgical History History of wisdom tooth extraction History of placement of ear tubes History of History of cholecystectomy Family History Mother No problems noted. Father No problems noted. Paternal Aunt Breast cancer Social History (Updated 10/25/23 @ 11:57 by Tonia Flores MD) Housing: House Alcohol intake: never Patient Tobacco Use Status: Never used Tobacco e-Cigarette/Vaping Use: Never Used Second Hand Smoke Exposure: No Substance Use Type: Marijuana service: No Current occupational status: unemployed Current occupation: rt handed Cognitive needs: No Hearing needs: No Vision needs: No Female Reproductive History Menstrual Age of Menarche: 15 Behavioral Health Assessment Weight Management Therapy Therapy Notes Details Pt is looking to have weight loss surgery to help improve her health and quality of life. Pt is currently not in therapy and reported being so many years ago when she was young, also briefly took medication for depression 10 years ago. She reported that she uses cannabis daily for stress. She has no history of inpatient psychiatric admissions. Presenting Concerns Referral Source provider Reason for referral weight loss surgery evaluation Precipitating Event obesity Living Situation Current Living Situation Rent At risk of losing current housing? No Satisfied with current living situation? Yes Comments Pt lives with her son and their dog. Food/Weight/Diet Expectations of change weight loss and maintenance. History/Relationship with food Pt stated that she would eat when she was bored, eat late at night crackers, sandwich, cereal, also fast food, stopped drinking soda two years, was drinking juice and now drinks crystal lite and water. She would skip meals during the day and then would over eat. History/Relationship with weight Pt stated that at her heaviest she was 380lbs two years ago. She reported being overweight all of her life. History/Relationship with dieting two years ago she lost 50lbs being on a similar diet and has never done any other diets. Binge Eating Do you frequently eat large amounts of food in short periods of time, not feeling physically hungry? Yes Do you feel out of control when you eat a large amount of food in a short period of time? No Do you eat large amounts of food rapidly and typically alone? Yes Night Eating Do you wake up at least once during the night to eat? No If you wake up in the night, do you find that it is necessary to eat something in order to fall back asleep? No Do you have little or no appetite in the morning and feel very hungry in the evening, often overeating between dinner and when you go to bed? Yes Social History Family history and relationship Pt was born and raised in [place] and has 4 brothers and one sister. Her parents when her brothers were 2 and they are 26 now. Her father was not involved in her life. Pt is with her boyfriend of 3 years and they each have children from previous rel./marriages. 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 none known Education Highest grade completed 9th grade Preferred learning style Auditory, Verbal, Written, Learn by doing and Visual Currently enrolled in educational program? No Interested in further educational program? 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 No Financial Situation Describe current financial situation Occasional struggle Service Service? No Mental Health and Addiction Treatment Current/Past substance abuse? Yes Current/Past addictive behavior concerns? No Medical and Physical Health Summary Physical exam in the last year? Yes Pain Screening Current pain? No Pain in the last few months? No Medications Is the patient compliant with medications? Yes Does the patient have Winter Guardian in place? Not applicable Does the patient use complimentary health approaches? No Trauma/Abuse History History of trauma? No Questionnaires PHQ-9 Over the last 2 weeks, how often have you been bothered by any of the following problems? 1. Little interest or pleasure in doing things: several days 2. Feeling down, depressed, or hopeless: several days 3. Trouble falling or staying asleep, or sleeping too much: more than half the days 4. Feeling tired or having little energy: several days 5. Poor appetite or overeating: not at all 6. Feeling bad about yourself - or that you are a failure or have let yourself or your family down: several days 7. Trouble concentrating on things, such as reading the newspaper or watching television: not at all 8. Moving or speaking so slowly that other people could have noticed. Or the opposite - being so fidgety or restless that you have been moving around a lot more than usual: not at all 9. Thoughts that you would be better off or of hurting yourself in some way: not at all Total score: 6 Source: Developed by Drs. Miguel Crump, Doris Del Rosario, Luc Hernandez and colleagues, with an educational brittany from [employer]. Binge Eating Scale Group 1 A. I don't feel self-conscious about my wt. or body size when I'm with others. B. I feel concerned about how I look to others, but it normally does not make me fell disappointed with myself C. I do get self-conscious about my appearance and wt. which makes me feel disappointed in myself. D. I feel very self-conscious about my wt. and frequently I feel intense shame and disgust for myself. I try to avoid social contacts because of my self-consciousness. Response Group 1: C Group 2 A. I don't have any difficulty eating slowly in the proper manner. B. Although I seem to gobble down foods, I don't end up feeling stuffed because of eating to much. C. At times, I tend to eat quickly and then, I feel uncomfortably full afterwards. D. I have the habit of bolting down my food, without really chewing it. When this happens I usually feel uncomfortably stuffed because I've eaten to much. Response Group 2: C Group 3 A. I feel capable to control my eating urges when I want to. B. I feel like I have failed to control my eating more than the average person. C. I feel utterly helpless when it comes to feeling in control of my eating urges. D. Because I feel so helpless about controlling my eating I have become very desperate about trying to get control. Response Group 3: B Group 4 A. I don't have the habit of eating when I'm bored. B. I sometimes eat when I'm bored, but often I'm able to get busy and get my mind off food. C. I have a regular habit of eating when I'm bored, but occasionally, I can use some other activity to get my mind off eating. D. I have a strong habit of eating when I'm bored. Nothing seems to help me breath the habit. Response Group 4: B Group 5 A. I'm usually physically hungry when I eat something. B. Occasionally, I eat something on impulse even though I really am not hungry. C. I have the regular habit of eating foods, that I might not really enjoy, to satisfy a hungry feeling even though physically, I don't need the food. D. Although I'm not physically hungry, I get a hungry feeling in my mouth that only seems to be satisfied when I eat a food, like sandwich, that fills my mouth. Sometimes, when I eat the food to satisfy my mouth hunger, I then spit the food out so I won't gain weight. Response Group 5: B Group 6 A. I don't feel any guilt or self-hate after I overeat. B. After I overeat, occasionally I feel guilt or self-hate. C. Almost all the time I experience strong guilt or self-hate after I overeat. Response Group 6: B Group 7 A. I don't lose total control of my eating when dieting even after periods when I overeat. B. Sometimes when I eat a forbidden food on a diet, I feel like I blew it and eat even more. C. Frequently, I have the habit of saying to myself, I've blown it now, why not go all the way, when I overeat on a diet. When that happens I eat more. D. I have a regular habit of starting a strict diets for myself but I break the diets by going on an eating binge. My life seems to be either a feast or famine. Response Group 7: D Group 8 A. I rarely eat so much food that I feel uncomfortably stuffed afterwards. B. Usually about once a month, I each such a quantity of food, I end up feeling very stuffed. C. I have regular periods during the month when I eat large amounts of food, either at mealtime or at snacks. D. I eat so much food that I regularly feel quite uncomfortable after eating and sometimes a bit nauseous. Response Group 8: C Group 9 A. My level of calorie intake does not go up very high or go down very low on a regular basis. B. Sometimes after I overeat, I will try to reduce my caloric intake to almost nothing to compensate for the excess calories I've eaten. C. I have a regular habit of overeating during the night. It seems that my routine is not to be hungry in the morning but overeat in the evening. D. In my adult years, I have had week-long periods where I practically starve myself. This follows periods when I overeat. It seems I live a life of either feast or famine. Response Group 9: D Group 10 A. I usually am able to stop eating when I want to. I know when enough is enough. B. Every so often, I experience a compulsion to eat which I can't seem to control. C. Frequently, I experience strong urges to eat which I seem unable to control, but at other times I can control my eating urges. D. I feel incapable of controlling urges to eat. I have a fear of not being able to stop eating voluntarily. Response Group 10: B Group 11 A. I don't have any problem stopping eating when I feel full. B. I usually can stop eating when I feel full but occasionally overeat leaving me feeling uncomfortably stuffed. C. I have a problem stopping eating once I start and usually I feel uncomfortably stuffed after I eat a meal. D. Because I have a problem not being able to stop eating when I want, I sometimes have to induce vomiting to relieve my stuffed feeling. Response Group 11: A Group 12 A. I seem to eat just as much when I'm with others, Family social gatherings as when I'm by myself. B. Sometimes, when I'm with other persons, I don't eat as much as I want to eat because I'm self-conscious about my eating. C. Frequently, I eat only a small amount of food when others are present, because I'm very embarrassed about my eating. D. I feel so ashamed about overeating that I pick times to overeat when I know no one will see me. I feel like a closet eater. Response Group 12: A Group 13 A. I eat three meals a day with only an occasional between meal snack. B. I eat 3 meals a day, but I also normally snack between meals. C. When I am snacking heavily, I get in the habit of skipping regular meals. D. There are regular periods when I seem to be continually eating, with no planned meals. Response Group 13: B Group 14 A. I don't think much about trying to control unwanted eating urges. B. At least some of the time, I feel my thoughts are pre-occupied with trying to control my eating urges. C. I feel that frequently I spend much time thinking about how much I ate or about trying not to eat anymore. D. It seems to me that most of my waking hours are pre-occupied by thoughts about eating or not eating. I feel like I'm constantly struggling not to eat. Response Group 14: A Group 15 A. I don't think about food a great deal. B. I have strong craving for food but they last only for brief periods of time. C. I have days when I can't seem to think about anything else but food. D. Most of my days seem to be pre-occupied with thoughts about food. I feel like I live to eat. Response Group 15: B Group 16 A. I usually know whether or not I'm physically hungry. I take the right portion of food to satisfy me. B. Occasionally, I feel uncertain about knowing whether or not I'm physically hungry. A these times it's hard to know how much food I should take to satisfy me. C. Even though I might know how many calories I should eat, I don't have any idea what is a normal amount of food for me. Response Group 16: B Binge Eating Score: 20 Score less than 17 Minimal Risk Score between 18-26 Moderate Risk Score between 27-46 High Risk Assessment & Plan Assessment & Plan (1) Adjustment disorder, unspecified: Code(s): F43.20 - Adjustment disorder, unspecified (2) Hair loss: Code(s): L65.9 - Nonscarring hair loss, unspecified Plan Pt has no significant barriers and no serious mental health barriers. 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 Also education around cannabis, stress and depression. She is cleared for surgery when ready. Telehealth Telehealth Location of provider rendering services: practice address Location of patient: address on file Patient Identification confirmed using: Name, : Yes Telehealth method: voice only Patient verbally consented to treatment: Yes Patient verbally consented to billing insurance company: Yes Patient informed of any privacy concerns related to visit: Yes Minutes spent on Phone/Video with Pt.: 50 Coding Level of Care Code Tele Psy Diag Eval (98401) Diagnoses Adjustment disorder, unspecified F43.20 Hair loss L65.9 Time Spent (min) 50
== END 2023-10-30 09:18 | disposition home or self-care (01) ==
LOC: HO.HBST 09:16
PROVIDERS: PCP Internal Medicine; Visit Provider Counselor Mental Health
DX: F43.20 Adjustment disorder, unspecified (principal); L65.9 Nonscarring hair loss, unspecified
CPT/HCPCS: 90791

== ENCOUNTER → 2023-10-30 09:16 | Outpatient (BNVA) | payer OTHER, SELFPAY | PROVIDERS: PCP Internal Medicine; Visit Provider Counselor Mental Health ==

== ENCOUNTER 2023-11-13 08:02 | Outpatient (AMB) | payer OTHER, SELFPAY ==
--- NOTE | 2023-11-13 09:53 | MHC.OFFVISWM ---
Intake VS Expanded 11/13/23 10:03 Height 5 ft 5 in Weight 325 lb 6 oz BMI 54.1 Body Fat % 70 Body Fat Mass 227.9 Fat Free Mass 97.6 Visceral Fat Rating 30 Body Water % 20.5 Body Water Mass 66.7 Basal Metabolic Rate/Score 1,327 Intake Visit Reasons: TV Follow Up SWL Allergies pork derived (porcine) Allergy (Intermediate, Verified 10/25/23 10:48) GI ISSUES SEAFOOD Allergy (Severe, Uncoded 09/18/23 11:12) ANAPHYLAXIS HPI TV Follow Up SWL HPI Details Start time: 9.50am, End time: 10.10am ?I spent 15 minutes speaking with the patient on the phone plus an additional 5 minutes reviewing and updating records for a total of 20 minutes HPI Comments History of Present Illness Details Overall weight loss: 29lbs, or 8.18% TBWL Is doing 2 premade Premier protein shakes (4oz plus 4oz almond milk), 2 Nutrition Valley protein bars and one meal (12 forks of protein and 12 forks of salad of vegetables) Exercise: Gym x3/week doing 200 calories on treadmill and 200 calories of bike PFSH Medical History Arthritis GERD (gastroesophageal reflux disease) Morbid obesity Asthma Thrombosed external hemorrhoids Left knee pain Migraines Super-super obese Allergic rhinitis Urticaria Surgical History History of wisdom tooth extraction History of placement of ear tubes History of History of cholecystectomy Family History Mother No problems noted. Father No problems noted. Paternal Aunt Breast cancer Social History (Updated 10/25/23 @ 11:57 by Tonia Flores MD) Housing: House Alcohol intake: never Patient Tobacco Use Status: Never used Tobacco e-Cigarette/Vaping Use: Never Used Second Hand Smoke Exposure: No Substance Use Type: Marijuana service: No Current occupational status: unemployed Current occupation: rt handed Cognitive needs: No Hearing needs: No Vision needs: No Female Reproductive History Menstrual Age of Menarche: 15 Assessment & Plan Assessment & Plan (1) Morbid obesity: Code(s): E66.01 - Morbid (severe) obesity due to excess calories Plan: 1. Plan for lap sleeve gastrectomy including upper GI endoscopy. All tests has been completed and reviewed and the patient is cleared for the surgery. ?If diaphragmatic or ventral hernias are present at time of surgery, these will be repaired laparoscopically as well. Risks and complications were discussed in detail including possible conversion to an open procedure, anastomotic leak, bleeding requiring transfusion, small bowel obstruction, , DVT and pulmonary embolism, cardiac, or pulmonary complications, as intermediate manager complications such as anastomotic ulcer, insufficient weight loss and vitamin deficiencies. I emphasized the importance of close follow-up, adherence to instructions and good communication. So far she has proven to be an excellent communicator and very compliant with all our directions accomplishing a great weight loss. I believe that she is an excellent candidate and she is ready. 2. Continue same nutritional plan of 2 premade Premier protein shakes (4oz plus 4oz almond milk), 2 [employer] protein bars and one meal (12 forks of protein and 12 forks of salad of vegetables) 3. Exercise: continue Gym x3/week but increase to 300 calories on treadmill and 300 calories of bike per work-out for a total of 600 calories per day, 3 days per week 4. Continue to send me weight measurements weekly on Saturdays Telehealth Telehealth Location of provider rendering services: practice address Location of patient: address on file Patient Identification confirmed using: Name, : Yes Telehealth method: voice only Patient verbally consented to treatment: Yes Patient verbally consented to billing insurance company: Yes Patient informed of any privacy concerns related to visit: Yes Minutes spent on Phone/Video with Pt.: 20 Coding Level of Care Code Tele Est Pt Level 3 (09825) Diagnoses Morbid obesity E66.01 Time Spent (min) 20
[2023-11-13 10:03] VITALS: BMI 54.1
== END 2023-11-13 10:10 | disposition home or self-care (01) ==
LOC: HO.HBS 08:02
PROVIDERS: PCP Internal Medicine; Visit Provider Surgery
DX: E66.01 Morbid (severe) obesity due to excess calories (principal); Z68.43 Body mass index [BMI] 50.0-59.9, adult
CPT/HCPCS: 99213

== ENCOUNTER → 2023-11-13 08:02 | Outpatient (BNVA) | payer OTHER, SELFPAY | PROVIDERS: PCP Internal Medicine; Visit Provider Surgery ==

== ENCOUNTER 2023-11-14 08:08 | Outpatient (REF) | payer OTHER, SELFPAY ==
--- NOTE | ~2023-11-14 | FL_ITS ---
EXAMINATION: XR FLUOROSCOPY UPPER GI WITH AIR CLINICAL INFORMATION: Preop evaluation prior to bariatric surgery COMPARISON: None TECHNIQUE: Fluoroscopic air contrast upper GI examination was performed utilizing standard techniques with thin and thick barium and effervescent granules. Numerous spot images were obtained. FINDINGS: Lateral cine images of the oropharynx and hypopharynx demonstrate normal swallow mechanism with normal epiglottic inversion and soft palate elevation. No tracheal penetration, glottic or subglottic aspiration identified. No nasopharyngeal reflux present. Hypopharyngeal structures appear normal without evidence of mass or diverticulum. There was no significant cricopharyngeal achalasia. Dual and single contrast images of the esophagus demonstrate normal caliber, contour, and mucosal pattern. No evidence of stricture, mass, or ulcerations identified. Esophageal peristalsis was normal. No evidence of hiatus hernia identified. No significant gastroesophageal reflux was seen during the course of the examination and on reflux views. Dual contrast and single contrast images of the stomach demonstrated normal contour and mucosal pattern without evidence of mass, ulceration, or other abnormality. Contrast freely passed into the gastric antrum and duodenal bulb without delay. Single and air-contrast images of the duodenal bulb demonstrate no abnormality. The duodenal sweep has a normal appearance, course, and mucosal fold appearance. No malrotation. The imaged proximal jejunum has a normal fold pattern and caliber. FLUOROSCOPY TIME: 4 minutes 18 seconds Number of Spot Images: 10 Number of Cine: 6 DOSE AREA PRODUCT: [id number] uGy-m2 (microgray-meter squared) FL/FL upper GI w air IMPRESSION: Normal upper GI series. This procedure was performed by Cortes Obando PA-C, and supervised by Dr. Boswell
== END 2023-11-14 08:09 | disposition home or self-care (01) ==
LOC: HO.XRAY 08:08
PROVIDERS: PCP Internal Medicine; Visit Provider Surgery
DX: Z30.09 Encounter for other general counseling and advice on contraception (principal); E66.01 Morbid (severe) obesity due to excess calories; K21.9 Gastro-esophageal reflux disease without esophagitis
CPT/HCPCS: 74246; 99212

== ENCOUNTER → 2023-11-14 08:11 | Outpatient (BNV) | payer OTHER, SELFPAY | PROVIDERS: PCP Internal Medicine; Visit Provider Radiology Diagnostic Radiology | DX: K21.9 Gastro-esophageal reflux disease without esophagitis (principal); E66.01 Morbid (severe) obesity due to excess calories; Z01.818 Encounter for other preprocedural examination | CPT/HCPCS: 74246 ==

== ENCOUNTER 2023-11-14 09:35 | Outpatient (AMB) | payer OTHER, SELFPAY ==
[2023-11-14 09:35] VITALS: BMI 53.9
--- NOTE | 2023-11-14 09:35 | A.OFFVIS_ITS ---
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 LMP was 10/30/2023 [facility] Medical History Arthritis GERD (gastroesophageal reflux disease) Morbid obesity Asthma Thrombosed external hemorrhoids Left knee pain Migraines Super-super obese Allergic rhinitis Urticaria Surgical History History of wisdom tooth extraction History of placement of ear tubes History of History of cholecystectomy Family History Mother No problems noted. Father No problems noted. Paternal Aunt Breast cancer Social History Housing: House Alcohol intake: never Patient Tobacco Use Status: Never used Tobacco e-Cigarette/Vaping Use: Never Used Second Hand Smoke Exposure: No Substance Use Type: Marijuana service: No Current occupational status: unemployed Current occupation: rt handed Cognitive needs: No Hearing needs: No Vision needs: No Female Reproductive History Menstrual Age of Menarche: 15 Date of last menstrual period: 10/30/23 control method: none Review of Systems Const All systems reviewed & are unremarkable except as noted in HPI and below Reports as per HPI and Reports no additional complaints GI Reports no additional complaints Reports no additional complaints Physical Exam Vital Signs: BMI result Body Mass Index 53.9 Assessment & Plan Assessment & Plan (1) Family planning: Code(s): Z30.09 - Encounter for other general counseling and advice on contraception Plan: Discussed with the patient the different options of control including control pills/Nuvaring, DMPA, different types of IUD ?s, sterilization. All the pros, cons, risks and benefits of each were discussed with the patient. The patient decided to go ahead with an IUD, so a more detailed discussion was carried on including types (Progesterone, Copper), mechanism of action, risks (infection, uterine perforation, failure with ectopic , septic AB, dysmenorrhea with Paraguard, increasing the risk of breast cancer, others) benefits (efficient contraceptive method, hypo menorrhea with Progesterone IUD, others) GC/CG were taken and the patient was asked to call day one of next cycle for IUD insertion. All questions answered, the patient verbalized understanding. Coding Level of Care Code Est Pt Level 3 (51084) Diagnoses Family planning Z30.09
== END 2023-11-14 11:23 | disposition home or self-care (01) ==
LOC: HO.HWS 09:35
PROVIDERS: PCP Internal Medicine; Visit Provider Obstetrics & Gynecology
DX: Z30.09 Encounter for other general counseling and advice on contraception (principal)
CPT/HCPCS: 99213

== ENCOUNTER 2023-11-14 10:01 | Outpatient (REF) | payer OTHER, SELFPAY ==
[2023-11-14 18:06] LABS: CT PCR NOT DETECTED (Not Detect.); NG PCR NOT DETECTED (Not Detect.)
== END 2023-11-14 10:02 | disposition home or self-care (01) ==
LOC: HO.LNP 10:01
PROVIDERS: Visit Provider Obstetrics & Gynecology
DX: Z30.09 Encounter for other general counseling and advice on contraception (principal)
CPT/HCPCS: 0353U

== ENCOUNTER 2023-11-16 13:06 | Outpatient (AMB) | payer OTHER, SELFPAY ==
--- NOTE | 2023-11-16 13:01 | A.OFFVIS_ITS ---
Intake Intake Visit Reasons: (TV) F/U SWL Front Office Spec Required: No Allergies pork derived (porcine) Allergy (Intermediate, Verified 11/14/23 09:36) GI ISSUES SEAFOOD Allergy (Severe, Uncoded 11/14/23 09:36) ANAPHYLAXIS HPI Nutrition Presentation Reason for consult elevated BMI Diet Assmnt Details Pt reports she is doing great with her nutrition plan. dinners has protein and veg. Pt was recently told by surgeon she doesn't need to seperate solids and liquids or take vitamins after. I advised pt to follow surgeon . Completed online classes Previous weight loss methods attempted 1 year ago lost 40# from 380 down to 340# Dietary counseling reduction Diagnosis Nutrition problem #1 overweight/obesity As related to (etiology) #1 excess energy intake and physical inactivity As evidenced by (sign/symptom) #1 high BMI Monitoring/Goals Nutrition problem monitoring total energy intake, level of knowledge/skill, total PRO intake, total CHO intake, weight and oral fluids Outcome progress progressing Learning/Education Readiness to learn good Stages of change action Educational materials provided Yes Most Recent Diabetes Results: No Data to Display FORMERLY [facility], [facility] Medical History Arthritis GERD (gastroesophageal reflux disease) Morbid obesity Asthma Thrombosed external hemorrhoids Left knee pain Migraines Super-super obese Allergic rhinitis Urticaria Surgical History History of wisdom tooth extraction History of placement of ear tubes History of History of cholecystectomy Family History Mother No problems noted. Father No problems noted. Paternal Aunt Breast cancer Social History Housing: House Alcohol intake: never Patient Tobacco Use Status: Never used Tobacco e-Cigarette/Vaping Use: Never Used Second Hand Smoke Exposure: No Substance Use Type: Marijuana service: No Current occupational status: unemployed Current occupation: rt handed Cognitive needs: No Hearing needs: No Vision needs: No Female Reproductive History Menstrual Age of Menarche: 15 Assessment & Plan Assessment & Plan (1) Morbid (severe) obesity due to excess calories: Code(s): E66.01 - Morbid (severe) obesity due to excess calories Plan pt is cleared Telehealth Telehealth Location of provider rendering services: other (home address ) Location of patient: address on file Patient Identification confirmed using: Name, : Yes Telehealth method: voice only Patient verbally consented to treatment: Yes Patient verbally consented to billing insurance company: Yes Patient informed of any privacy concerns related to visit: Yes Minutes spent on Phone/Video with Pt.: 10 Coding Level of Care Code Nutr Indiv Subseq (17800) Diagnoses Morbid (severe) obesity due to excess calories E66.01 Time Spent (min) 10
== END 2023-11-16 15:29 | disposition home or self-care (01) ==
LOC: HO.HBS 13:06
PROVIDERS: PCP Internal Medicine; Visit Provider Dietitian, Registered
DX: E66.01 Morbid (severe) obesity due to excess calories (principal)

== ENCOUNTER → 2023-11-16 13:06 | Outpatient (BNVA) | payer OTHER, SELFPAY | PROVIDERS: PCP Internal Medicine; Visit Provider Dietitian, Registered | DX: E66.01 Morbid (severe) obesity due to excess calories (principal) | CPT/HCPCS: 97803 ==

== ENCOUNTER 2023-11-17 11:59 | Outpatient (REF) | payer OTHER, SELFPAY ==
[2023-11-17 14:23] LABS: TSH reflex Free T4 2.58 uIU/mL (0.32-4.0); Vitamin D 25-OH Total 19.5 ng/mL (>30)
== END 2023-11-17 12:00 | disposition home or self-care (01) ==
LOC: HO.LAB 11:59
PROVIDERS: Referring Provider Surgery; Visit Provider Nurse Practitioner Family
DX: Z00.00 Encounter for general adult medical examination without abnormal findings (principal)
CPT/HCPCS: 36415; 82306; 84443

== ENCOUNTER 2023-11-18 07:20 | Outpatient (REF) | payer OTHER, SELFPAY ==
[2023-11-18 08:54] LABS: Alanine Aminotransferase 8 U/L (0-31); Alkaline Phosphatase 47 U/L (39-117); Anion Gap 14 (12-20); Aspartate Amino Transferase 11 U/L (5-31); Bilirubin Total 0.6 mg/dL (0.0-1.0); Blood Urea Nitrogen 8 mg/dL (9-16); Calcium 9.4 mg/dL (8.4-10.2); Carbon Dioxide 21 mmol/L (22-29); Chloride 108 mmol/L (96-108); Cholesterol 82 mg/dL (<200); Estimated Glomerular Filt Rate > 60; Glucose Fasting 84 mg/dL (60-99); HDL Cholesterol 28 mg/dL (>40); LDL Cholesterol Calculated 46 mg/dL (<100); Potassium 3.9 mmol/L (3.3-5.1); Sodium 139 mmol/L (135-145); Total Protein 6.8 g/dL (6.5-8.0); Triglycerides 44 mg/dL (<150)
== END 2023-11-18 07:21 | disposition home or self-care (01) ==
LOC: HO.LAB 07:20
PROVIDERS: PCP Internal Medicine; Visit Provider Nurse Practitioner Family
DX: Z00.00 Encounter for general adult medical examination without abnormal findings (principal)
CPT/HCPCS: 36415; 80053; 80061

== ENCOUNTER 2023-11-22 08:02 | Outpatient (AMB) | payer OTHER, SELFPAY ==
[2023-11-21 21:30] VITALS: BMI 53.5
--- NOTE | 2023-11-21 21:30 | MHC.OFFVISWM ---
Intake VS Expanded 11/21/23 21:30 Height 5 ft 5 in Weight 321 lb 6 oz BMI 53.5 Body Fat % 70 Body Fat Mass 225.1 Fat Free Mass 96.4 Visceral Fat Rating 30 Body Water % 20.5 Body Water Mass 65.9 Basal Metabolic Rate/Score 1,316 Intake Visit Reasons: TV Pre Op LSG 11/30/23 Allergies pork derived (porcine) Allergy (Intermediate, Verified 11/21/23 21:34) GI ISSUES SEAFOOD Allergy (Severe, Uncoded 11/21/23 21:34) ANAPHYLAXIS Medication List - Last Reconciled 11/21/23 by Danny Medley MD albuterol sulfate 90 mcg/actuation (ProAir HFA) 2 puffs inhalation Q6H PRN cholecalciferol (vitamin D3) 50 mcg PO DAILY 90 days ondansetron 4 mg PO Q12H pantoprazole 40 mg PO DAILY polyethylene glycol 3350 (Miralax) 17 grams PO DAILY sucralfate 10 mL PO BID vitamin A palmitate 10,000 units PO DAILY HPI TV Pre Op LSG 11/30/23 HPI Details Start time: 1.30pm, End time: 2pm ?I spent 25 minutes speaking with the patient on the phone plus an additional 5 minutes reviewing and updating records for a total of 30 minutes HPI Comments History of Present Illness Details Overall weight loss: 33lbs, or 9.31% TBWL Is doing 2 premade Premier protein shakes (4oz plus 4oz almond milk), 2 [employer] protein bars and one meal (12 forks of protein and 12 forks of salad of vegetables) Exercise: Gym x3/week doing 200 calories on treadmill and [address] [facility] Medical History Arthritis GERD (gastroesophageal reflux disease) Morbid obesity Asthma Thrombosed external hemorrhoids Left knee pain Migraines Super-super obese Allergic rhinitis Urticaria Surgical History History of wisdom tooth extraction History of placement of ear tubes History of History of cholecystectomy Family History Mother No problems noted. Father No problems noted. Paternal Aunt Breast cancer Social History Housing: House Alcohol intake: never Patient Tobacco Use Status: Never used Tobacco e-Cigarette/Vaping Use: Never Used Second Hand Smoke Exposure: No Substance Use Type: Marijuana service: No Current occupational status: unemployed Current occupation: rt handed Cognitive needs: No Hearing needs: No Vision needs: No Female Reproductive History Menstrual Age of Menarche: 15 Physical Exam Vital Signs: BMI result Body Mass Index 53.5 Assessment & Plan Assessment & Plan (1) Morbid obesity: Code(s): E66.01 - Morbid (severe) obesity due to excess calories Plan: 1. Plan for lap sleeve gastrectomy including upper GI endoscopy. All tests has been completed and reviewed and the patient is cleared for the surgery. ?If diaphragmatic or ventral hernias are present at time of surgery, these will be repaired laparoscopically as well. 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 I emphasized the importance of close follow-up, adherence to instructions and good communication. So far she has proven to be an excellent communicator and very compliant with all our directions accomplishing a great weight loss. I believe that she is an excellent candidate and she is ready. 2. Preop prescriptions were provided and explained the purpose of each one. Need to be purchased preop. Start Pantoprazole now as you get it from the pharmacy, 1 pill per day. Sucralfate and Zofran are for after surgery as needed. 3. Bowel prep: please do 7 packets ?of Miralax mixing each one with a an 8oz glass of water, crystal light, gatorade zero, or propel ?on 11/28/23 and the same amount on 11/29/23. The Miralax you begin with one packet at a time in 8oz water or crystal light, gatorade zero, or propel ?as early in the day as you can and you do them back to back until you finish them. Continue the protein shakes during? the bowel prep. 4. Needs to purchase 1oz medicine cups . 5. Needs to purchase Children's liquid Tylenol for postop pain control. 6. Avoid aspirin, motrin, Advil, Aleve, Ibuprofen, Naproxyn. Tylenol is OK. 7. She needs to purchase the Celebrate 4:1 protein shakes from the hospital's gift shop. 8. Will do basic preop blood work-up any day between Monday11/22/23 and Monday11/24/23 fasting for 12 hours and is scheduled to see the Anesthesiologist prior to the day of surgery. 9. Importance of adherence to postop folllow-up and recommendations was underscored and she understands that. 10. Stop food and bars as of tomorrow 11/22/23 and continue with 3 Premier premade protein shakes (mixing 5oz of the Premier shake in 3oz almond milk) at 7am-9am, 10am-12pm and 1pm-3pm and TWO more premade Premier protein shakes (whole bottle per shake) at 4pm-6pm and 8pm-10pm 11. No soups, broths or V8 12. The patient's?medical?history has been reviewed and they are considered low risk for post op DVT and therefore DVT prophylaxis is not considered necessary. Travel after surgery was reviewed. The patient has not disclosed any travel plans during the first 30 days after surgery and they have been advised that within the first 30 days after surgery any bus, plane, train or car travel over 2 hours in duration is contraindicated due to the possibility of developing blood clots from immobility. Any travel, needs to include periods of ambulation of 10 minutes in duration every 2 hours.? Patient was instructed to discuss any plans for travel during this period with their bariatric surgeon.? 13. Please take at the day of surgery the following medications: NONE 14. Stop any control pills and don't use them for one month after surgery 15. Absolutely no smoking or vaping, or marijuana until the surgery and for at least the first 4 weeks. Only nicotine patches are allowed. 16. Send me weight measurements on Monday11/25/23 and then on 11/30/23 the day of surgery before you go to the hospital. 17. Avoid any steroids by mouth for any reason. Let me know if someone prescribes them to you 18. These instructions supersede anything else you read in the handbook, anything you watched in videos or classes or you were told by any other provider. If there is any conflict, you follow the above instructions and nothing else. Orders: Orders Prothrombin Time INR 11/21/23 E66.01 - Morbid (severe) obesity due to excess calories Hemoglobin A1c 11/21/23 E66. - Morbid (severe) obesity due to excess calories Type and Screen 11/21/23 E66. - Morbid (severe) obesity due to excess calories Partial Thromboplastin Time 11/21/23 E66. - Morbid (severe) obesity due to excess calories C Reactive Protein 11/21/23 E66. - Morbid (severe) obesity due to excess calories Complete Blood Count Auto Diff 11/21/23 E66. - Morbid (severe) obesity due to excess calories Insulin 11/21/23 E66. - Morbid (severe) obesity due to excess calories Comprehensive Met. Panel 11/21/23 E66. - Morbid (severe) obesity due to excess calories Medications: New pantoprazole 40 mg PO DAILY 90 tabs 0RF K21.9 - Gastro-esophageal reflux disease without esophagitis sucralfate 10 mL PO BID 600 mL 2RF K21.9 - Gastro-esophageal reflux disease without esophagitis ondansetron Only take one every 12 hours as needed if you have nausea 4 mg PO Q12H 20 tabs 0RF nausea and vomiting R11.0 - Nausea polyethylene glycol 3350 (Miralax) Mix each packet with 8oz of water, Crystal light, or Gatorade zero, or Propel and do 7 packets on 11/28/23 and another 7 packets on 11/29/23 17 grams PO DAILY 14 ea 0RF Z01.818 - Encounter for other preprocedural examination Telehealth Telehealth Location of provider rendering services: practice address Location of patient: address on file Patient Identification confirmed using: Name, : Yes Telehealth method: voice only Patient verbally consented to treatment: Yes Patient verbally consented to billing insurance company: Yes Patient informed of any privacy concerns related to visit: Yes Minutes spent on Phone/Video with Pt.: 30 Coding Level of Care Code Tele Est Pt Level 4 (87350) Diagnoses Morbid obesity E66.01 Time Spent (min) 30
== END 2023-11-22 17:25 | disposition home or self-care (01) ==
LOC: HO.HBS 08:02
PROVIDERS: PCP Internal Medicine; Visit Provider Surgery
DX: E66.01 Morbid (severe) obesity due to excess calories (principal)
CPT/HCPCS: 99214

== ENCOUNTER → 2023-11-22 08:02 | Outpatient (BNVA) | payer OTHER, SELFPAY | PROVIDERS: PCP Internal Medicine; Visit Provider Surgery | DX: E66.01 Morbid (severe) obesity due to excess calories (principal); K21.9 Gastro-esophageal reflux disease without esophagitis; R11.0 Nausea; Z01.818 Encounter for other preprocedural examination ==

== ENCOUNTER 2023-11-24 09:56 | Outpatient (REF) | payer OTHER, SELFPAY ==
[2023-11-24 10:34] LABS: MANUAL DIFF FLAG NO
[2023-11-24 12:06] LABS: Estimated Average Glucose 88 mg/dL; Hemoglobin A1c % 4.7 % (<6.0)
[2023-11-24 12:09] LABS: Prothrombin Time 12.5 SEC (11.1-13.3)
[2023-11-24 12:12] LABS: Partial Thromboplastin Time 29.7 SEC (26.0-36.8)
[2023-11-24 12:23] LABS: Basophils Percent Auto 0.4 % (0-2); Eosinophils Absolute Auto 0.1 X10*3/uL (0.0-0.4); Eosinophils Percent Auto 0.9 % (0-4); Hematocrit 41.2 % (37.0-47.0); Imm Gran Abs Auto 0.03 X10*3/uL (0.00-0.03); Imm Gran Pct Auto 0.4 % (0.0-0.4); Lymphocytes Absolute Auto 2.2 X10*3/uL (1.2-4.9); Lymphocytes Percent Auto 27.4 % (20-40); Mean Corpuscular Hemoglobin 31.3 pg (27.0-33.0); Mean Corpuscular Volume 92.2 fL (80.0-98.0); Mean Platelet Volume 11.1 fL (9.4-12.3); Monocytes Absolute Auto 0.4 X10*3/uL (0.1-1.2); Monocytes Percent Auto 5.6 % (2-11); Neutrophils Absolute Auto 5.1 x10*3/uL (2.0-8.3); Neutrophils Percent Auto 65.3 % (45-73); Platelet Count 203 X10*3/uL (160-400); Red Blood Count 4.47 X10*6/uL (4.20-5.50); Red Cell Distribution Width 13.6 % (11.0-16.0); White Blood Count 7.9 X10*3/uL (4.8-10.8)
[2023-11-24 12:43] LABS: Alanine Aminotransferase 8 U/L (0-31); Albumin Level 4.3 g/dL (3.5-5.0); Alkaline Phosphatase 50 U/L (39-117); Anion Gap 15 (12-20); Aspartate Amino Transferase 10 U/L (5-31); Bilirubin Total 0.6 mg/dL (0.0-1.0); Blood Urea Nitrogen 10 mg/dL (9-16); C Reactive Protein 1.07 mg/dL (< or = 0.50); Calcium 9.4 mg/dL (8.4-10.2); Carbon Dioxide 22 mmol/L (22-29); Chloride 107 mmol/L (96-108); Estimated Glomerular Filt Rate > 60; Glucose Random 76 mg/dL (60-115); Insulin 5 uU/mL (2-29); Potassium 3.9 mmol/L (3.3-5.1); Sodium 140 mmol/L (135-145); Total Protein 7.2 g/dL (6.5-8.0)
== END 2023-11-24 09:57 | disposition home or self-care (01) ==
LOC: HO.LAB 09:56
PROVIDERS: PCP Internal Medicine; Visit Provider Surgery
DX: E66.01 Morbid (severe) obesity due to excess calories (principal)
CPT/HCPCS: 36415; 80053; 83036; 83525; 85025; 85610; 85730; 86140

== ENCOUNTER 2023-11-30 06:05 | Inpatient (IN) | payer OTHER, SELFPAY ==
[2023-11-23 11:47] VITALS: BMI 53.1
--- NOTE | 2023-11-29 09:30 | HO.ANESPROP2 ---
Documented by User: Lashaun Nascimento NP 11/29/23 09:31 HPI - Anesthesia Eval Consult details Narrative: 33yo F for Gastrectomy Sleeve,EGD,possible diaphragmatic hernia,possible ventral hernia,possible open PMFSH Active Problems Active Problems: All Active Problems (Updated 11/23/23 @ 11:42 by Nimisha Whaley RN) Family planning (Acute) Adjustment disorder, unspecified (Acute) Hair loss (Acute) Vitamin A deficiency (Acute) Bulky or enlarged uterus (Acute) Adult general medical exam (Acute) control counseling (Acute) Cervical cancer screening (Acute) Patient desires (Acute) Women's annual routine gynecological examination (Acute) External hemorrhoids (Acute) Osteoarthritis of left knee (Acute) Right knee pain (Acute) GERD (gastroesophageal reflux disease) (Acute) Morbid obesity (Acute) Thrombosed external hemorrhoids (Acute) Left knee pain (Acute) Migraines (Acute) Super-super obese (Acute) Allergic rhinitis (Acute) Past Medical History Medical History HTN (hypertension) Arthritis GERD (gastroesophageal reflux disease) Morbid obesity Asthma Thrombosed external hemorrhoids Left knee pain Migraines Super-super obese Allergic rhinitis Urticaria Family History Family History Mother No problems noted. Father No problems noted. Paternal Aunt Breast cancer Family history of problems with anesthesia: No Surgical History Surgical History History of wisdom tooth extraction History of placement of ear tubes History of History of cholecystectomy History of Problems with Anesthesia: No Social History Social History Housing: House Are you a primary certified social workers in health care to a significant other at home: Yes Do you presently have visiting nurse or other home services: No Alcohol intake: never Patient Tobacco Use Status: Never used Tobacco e-Cigarette/Vaping Use: Never Used Second Hand Smoke Exposure: No Use of substances other than those prescribed or required for medical reasons: No Substance Use Type: Marijuana Have you been hit, kicked, punched, or otherwise hurt by someone within the past year? If so, by whom?: No Advance Directives: No Advance Directives Information Provided: No Advance Directives on File: No Recently lost weight without trying: No Eating poorly because of decreased appetite: No Nutrition Risks: No Nutritional Risk Patient : No : No Poor oral hygiene: No service: No Current occupational status: unemployed Current occupation: rt handed Cognitive needs: No Hearing needs: No Vision needs: No Meds Allergies Allergy/AdvReac Type Severity Reaction Status Date / Time pork derived (porcine) Allergy Intermediate GI ISSUES Verified 11/30/23 06:12 SEAFOOD Allergy Severe ANAPHYLAXIS Uncoded 11/30/23 06:12 Home Medications Medication Instructions Recorded Confirmed Last Taken Type albuterol sulfate 90 mcg/actuation 2 puff inhalation Q6H PRN 09/18/23 11/23/23 Unknown History aerosol inhaler (ProAir HFA) Shortness Of Breath Exam Height,Weight and Vital Signs: Height 5 ft 5 in Weight 144.696 kg Pertinent Lab Results Pertinent Lab Results: Laboratory Tests 11/24/23 10:20 Blood Type A Positive Antibody Screen NEGATIVE Laboratory Tests 11/24/23 10:32 WBC 7.9 Hgb 14.0 Hct 41.2 Plt Count 203 Sodium 140 Potassium 3.9 Chloride 107 Carbon Dioxide 22 BUN 10 Creatinine 0.72 Narrative Narrative: EKG 10/2023 Vent. Rate : 072 BPM Atrial Rate : 072 BPM P-R Int : 170 ms QRS Dur : 090 ms QT Int : 386 ms P-R-T Axes : 062 089 019 degrees QTc Int : 422 ms Normal sinus rhythm Normal ECG When compared with ECG of 15-JUL-2013 10:33, No significant change was found Assessment and Plan Assessment Anesthesia Assessment: Chart Reviewed Final Anesthetic Review Family History of Problems with Anesthesia: No History of Problems with Anesthesia: No Documented by User: Sneha Park MD 11/30/23 07:42 PMFSH Past Medical History Medical History HTN (hypertension) Arthritis GERD (gastroesophageal reflux disease) Morbid obesity Asthma Thrombosed external hemorrhoids Left knee pain Migraines Super-super obese Allergic rhinitis Urticaria Family History Family History Mother No problems noted. Father No problems noted. Paternal Aunt Breast cancer Surgical History Surgical History History of wisdom tooth extraction History of placement of ear tubes History of History of cholecystectomy Social History Social History Housing: House Are you a primary certified social workers in health care to a significant other at home: Yes Do you presently have visiting nurse or other home services: No Alcohol intake: never Patient Tobacco Use Status: Never used Tobacco e-Cigarette/Vaping Use: Never Used Second Hand Smoke Exposure: No Use of substances other than those prescribed or required for medical reasons: No Substance Use Type: Marijuana Have you been hit, kicked, punched, or otherwise hurt by someone within the past year? If so, by whom?: No Advance Directives: No Advance Directives Information Provided: No Advance Directives on File: No Recently lost weight without trying: No Eating poorly because of decreased appetite: No Nutrition Risks: No Nutritional Risk Patient : No : No Poor oral hygiene: No service: No Current occupational status: unemployed Current occupation: rt handed Cognitive needs: No Hearing needs: No Vision needs: No Meds Allergies Allergy/AdvReac Type Severity Reaction Status Date / Time pork derived (porcine) Allergy Intermediate GI ISSUES Verified 11/30/23 06:12 SEAFOOD Allergy Severe ANAPHYLAXIS Uncoded 11/30/23 06:12 Home Medications Medication Instructions Recorded Confirmed Last Taken Type albuterol sulfate 90 mcg/actuation 2 puff inhalation Q6H PRN 09/18/23 11/23/23 Unknown History aerosol inhaler (ProAir HFA) Shortness Of Breath Exam Airway Mallampati Class: III TM Dist: <=3cm Neck ROM: Full Heart: rrr Lungs: cta Assessment and Plan Assessment Anesthesia Assessment: Anesthesia Plan Discussed Final Anesthetic Review NPO: Yes ASA Class: III Final Preanesthetic Review: No Changes in Pt Med Stat, Meds/Allgs Chart Reviewed, Consent Obtained/Reviewed and Anes Risks/Benef Reviewed Patient Risk: Intermediate Procedure Risk: Intermediate Anesthetic Plan Anesthetic Plan: GA Disposition: Standard PACU
[2023-11-30] VITALS (15 sets, daily range): BP systolic 121–163; BP diastolic 73–96; PULSE 56–84; RESP 16–18; TEMP 36–36.9; O2SAT 93–99; BMI 51.6
--- NOTE | ~2023-11-30 | US_ITS ---
EXAMINATION: US PELVIS CLINICAL INFORMATION: Pelvic mass. LMP 11/26/2023. COMPARISON: Obstetric ultrasound 02/01/2013. TECHNIQUE: Ultrasound of the pelvis was performed using both transabdominal and transvaginal transducers along with Doppler. Transvaginal imaging was performed due to inadequate visualization transabdominally. FINDINGS: UTERUS: The uterus is anteverted, enlarged and measures 13.2 x 7.0 x 6.6 cm. There is likely a large mass in the fundus with the borders not well visualized. The double wall endometrial thickness is 7.0 mm. The lower uterus is smooth and homogeneous. No myometrial enlargement is seen. A fundal fibroid is likely suspected. ADNEXA: There is no pelvic ascites or fluid collection. Right ovary is not visualized. The previously it measured 3.9 x 1.7 x 2.7 cm. Left ovary measures 3.8 x 3.4 x 3.1 cm and volume 20.97 mL. Previously it measured 2.1 x 1.1 x 2.0 cm. US/US pelvic and transvaginal IMPRESSION: Large midline fundal uterine mass, likely a uterine fibroid. The borders of this mass are not distinct. 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 Right ovary not seen. Left ovary suboptimally visualized. Recommend correlation with limited CT pelvis or MRI pelvis.
[2023-11-30 06:20] LABS: UPreg QC Valid YES; Urine Pregnancy NEGATIVE (NEGATIVE)
[2023-11-30] MEDS: Lactated Ringers 1,000 ML 100 ML IVCONT ×3 (06:33→22:37)
[2023-11-30] MEDS: Lactated Ringers 1,000 ML 999 ML IV (06:33)
[2023-11-30] MEDS: Aprepitant 32 MG/4.4 ML VIAL IVPUSH (06:34)
--- NOTE | 2023-11-30 07:17 | PHA.MEDREC ---
Pharmacy Consult ? Medication Reconciliation Pharmacy has reviewed the medication reconciliation done by nursing.
--- NOTE | 2023-11-30 07:36 | MHC.SHP ---
Pre-Procedural Eval Section A - 24 Hr Update-Section A only Date of Service: 11/30/23 The patient is an INPATIENT: Yes The patient has been examined within 24 hours of the surgical procedure. The History & Physical has been completed within 30 days and I have reviewed it.: Yes Section B - Complete if H&P > 30 days Chief Complaint: obesity Relevant Family History (Specify if Yes): No Relevant Social History: None Present Medications: None Medical History: No relevant PMH History of Previous Operations: No relevant previous surgery Allergies: Allergies Allergy/AdvReac Type Severity Reaction Status Date / Time pork derived (porcine) Allergy Intermediate GI ISSUES Verified 11/30/23 06:12 SEAFOOD Allergy Severe ANAPHYLAXIS Uncoded 11/30/23 06:12 Review of Systems Sugical H&P ROS: Negative: Constitution, Cardiovascular, Respiratory, Neurological, Psychiatric, Hem-Onc, Allergic/Immunologic, Gastrointestinal, Genitourinary, Musculoskeletal, Integumentary, Endocrine and Eyes/Ears/Nose/Throat Exam Surgical H&P Exam: Normal: HEENT, Normal: Heart, Normal: Lungs, Normal: Extremities, Normal: Abdomen, Normal: Skin and Normal: Neurological Plan Diagnosis/Plan: Unchanged I have reviewed the history and physical and performed a pertinent physical examination on my patient. No changes have occurred unless specified. Time Spent With Patient Time: Total time managing care of this patient today ____ minutes.
--- NOTE | 2023-11-30 07:37 | PM.OP ---
Brief Operative Note Date of Service: 11/30/23 Pre-op diagnosis: Morbid obesity with comorbidities (see below) Post-op diagnosis: same (lysis of adhesions and large right pelvic mass) Procedure: INITIAL PATIENT BMI ON PRESENTATION AT OUR OFFICE: 59 kg/m2 LAST BMI BEFORE SURGERY: 52.3 kg/m2 COMORBIDITIES: GERD, asthma, anxiety, back pain, liver fibrosis ?The patient presented to the Weight Management Program with significant obesity that was negatively impacting the patient's comorbidities as listed above.? The program is a phased program with a special focus on preoperative medical weight management to promote substantial weight loss and prepare the patients for the second phase of the program: bariatric surgery. The patient participated in an intensive weekly lifestyle ?intervention and exercise program during which the patient ?has lost between the initial office visit and the last preoperative visit 40.6lbs, or 11.45% of initial actual body weight. It was deemed appropriate for the patient to now have bariatric surgery. In light of the current Covid-19 pandemic and the well documented strong association of obesity and increased risk of worse outcomes if infected with Covid-19 (REFERENCES:https://pubmed.ncbi.nlm.nih.gov/66654424/,?https://pubmed.ncbi.nlm.nih.gov/83720146/), any delay in undergoing bariatric surgery may lead to the patient's worsening health condition and increased?risk of more severe Covid-19 disease if infected. In addition a recent?study from [facility] [place] published in [facility] on 10/04/2021 ([email or web address]) found that, among patients with obesity, substantial weight loss achieved with surgery was associated with improved outcomes of COVID-19 infection. The findings suggest that obesity can be a modifiable risk factor for the severity of COVID-19 infection. In addition, the patient met the BMI-criteria for bariatric surgery based on the BMI on initial presentation. The patient should not be penalized for achieving such weight loss because ?it is not sustainable long-term without surgical intervention and it was achieved in preparation for bariatric surgery ?under my direction and based on my published research ([email or web address] and?https://www.soard.org/article/[email or web address])04984-X/pdf) ?that a 10% preoperative weight loss improves long-term weight loss after surgery and reduces perioperative complications.? Insurance carriers such as [facility] have endorsed my recommendations ?and have included in their policies criteria to include a 10% preoperative weight loss requirement. PROCEDURE: Esophago-gastroscopy,laparoscopic lysis of adhesions, laparoscopic sleeve gastrectomy and laparoscopic gastropexy INDICATIONS: This is a 33 year-old female who was electively scheduled for laparoscopic, possibly open sleeve gastrectomy. The risks and complications of the procedure were discussed with the patient in advance, particularly the possibility of ; pulmonary embolism; staple line leak; bleeding; GERD; cardiac, pulmonary, or renal complications; as well as long-term problems such as insufficient weight loss, vitamin deficiency, strictures, or ulcers. The patient understood all the risks, and was in agreement to proceed with surgery. DESCRIPTION OF PROCEDURE: After informed consent was obtained from the patient, the patient was given preoperative antibiotics, and was transferred to the operating room. After successful induction of general anesthesia, pneumatic compression devices were placed on both lower extremities. An upper endoscopy was performed next. The oropharynx and esophagus appeared to be within normal limits. There was no diaphragmatic hernia present consistent with the findings of the preoperative upper GI. The stomach was entered. Then after all fluid and air were suctioned and the stomach was fully decompressed, the scope was withdrawn and secured in the mid esophagus. The patient was then prepped and draped in the usual sterile manner. On examination under anesthesia there was a fullness in the RLQ suggestive of a pelvic mass. Abdominal access was established at the right upper quadrant with the Kirk technique. A 12 mm blunt port was inserted, and the abdomen was insufflated with CO2 to a pressure of 15 mmHg. Under direct visualization, additional ports were placed, specifically two 5 mm Versi-step ports to the left upper quadrant, and a 5 mm Versi-Step port to the right upper quadrant. 1% lidocaine plain was used to infiltrate all port sites as well as all fascia defects. On laparoscopic examination of the pelvis, there was a large mass that seems to be originating either from the uterus or right adnexa. It appeared to be complex in nature, benign appearing but fixed to the right pelvic side wall. Pictures were obtained and were sent to Dr. Hassan who will see the patient. A pelvic ultrasound will be also ordered while she is in the hospital. There were adhesions in the abdomen from previous and lap cholecystectomy involving the omentum and the left anterior abdominal wall. Those were lysed completely with the ultrasonic device. Following that, the patient was placed in a steep reverse Trendelenburg position. An additional 5 mm port was placed to the right flank for the Mediflex retractor that was used to retract the left lobe of the liver. The gastro-esophageal fat pad was opened with the ultrasonic device (Thunderbeat, Olympus) and the anterior esophagus and hiatus were exposed. The angle of His was opened with the ultrasonic device the fundus of the stomach from any diaphragmatic and splenic attachments. I then opened the gastrocolic ligament between the transverse colon and the greater curvature of the stomach with the ultrasonic device to enter the lesser sac and facilitate the ligation of the short gastric vessels. I started at a mid-point along the greater curvature and using the Thunderbeat, all short gastric vessels were divided all the way to the angle of His until the left tello was completely dissected at its entirety. I then divided the gastro-colic ligament distally to a distance of about 3-4 cm proximal to the pylorus. There were extensive congenital adhesions between the pancreas and posterior gastric wall. Those were lysed completely with the ultrasonic device. Adhesiolysis took approximately 45 min to complete. The stomach was then divided transversely with three Endo KIMANI-45 purple and three KIMANI-60 articulating purple loads using the SIGNIA stapler and loads. Every effort was made that the gastric sleeve had a tubular shape and an even caliber throughout. Once the sleeve resection was completed, the staple line of the gastric sleeve was reinforced with Hemoclips. The resected stomach was retrieved without difficulty from the Kirk port. A gastropexy was then performed in order to prevent postoperative GERD and partial gastric volvulus. Several interrupted 2.0 Surgidac sutures were placed between the sleeve's staple line and the previously divided greater omentum and gastro-colic ligament using the Endo-Stitch device. ?An upper endoscopy was performed. There was no narrowing at the GE junction. The scope was easily advanced all the way to the pylorus which was clearly visualized. There was no narrowing anywhere and the sleeve's caliber was even throughout. The sleeve's staple line was inspected and there was no evidence of ischemia, bleeding or dehiscence. At that point the gastroscope was withdrawn from the patient?s mouth while we were decompressing the bowel and the stomach from any remaining air. I looked into the lesser sac to see how the sleeve was situating and it was situating well. There was no bleeding from the staple line, spleen, or short gastric vessels. The Mediflex retractor was removed, and the undersurface of the liver was inspected and there was no bleeding. The patient was placed in supine position. I closed the fascial defect of the 12 mm port site with a figure of eight #1 Polysorb suture. Then 30cc Ropivacaine plain with 10 mg of Dexamethasone were used to infiltrate the fascial closure as well as all skin incisions. At this point, the abdomen was deflated, all ports were removed under direct vision, and no bleeding was noted from any of the port sites. The skin incisions were irrigated with saline and were closed with 4-0 absorbable monofilament sutures. Steri-Strips and OpSites were used to cover all incisions. The patient was extubated and was transferred in stable condition to the recovery room for further care. I was present and performed all vazquez parts of the procedure. Mr Encarnacion was the assistant front end manager. There were no residents to assist with this case. Alberto Medley MD, PhD, FACS Surgeon: Danny Medley MD Anesthesia: GETA, local and other (TAP block ) Was an Math And Science Instructor used for this Procedure?: No Math And Science Instructor: Ritesh Encarnacion Estimated blood loss (mL): 10 IV fluids (mL): 2,500 Urine output (mL): 0 (No Rivera to record output) Pathology: other (Stomach) Condition: stable Disposition: PACU
--- NOTE | 2023-11-30 07:40 | PM.PNGS ---
Subjective Subjective Date of Service: 12/01/23 Interval history: Feels well. Mild incisional pain. She is tolerating phase 1 bariatric diet Physical Exam Vital Signs: Vital Signs: Last Vital Signs Temp 98.1 F 11/30/23 06:32 Pulse 75 11/30/23 06:32 Resp 18 11/30/23 06:32 BP 143/75 H 11/30/23 06:32 Pulse Ox 96 11/30/23 06:32 O2 Del Method Room Air 11/30/23 06:32 BMI result Body Mass Index 51.6 GI: Inspection: Yes normal to inspection, Yes incision (clean, dry and intact) and Yes obesity Palpation (GI): Soft to palpation Extrem: Right lower extremity: normal to inspection (no calf tenderness) Left lower extremity: normal to inspection (no calf tenderness) Objective Data Active Medications Albuterol Sulfate (Albuterol Sulfate (0.083%) 2.5 Mg/3 Ml Vial.Neb) 2.5 mg INHALE ONCE PRN PRN Reason: Shortness of Breath/Wheezing Lactated Ringer's (Lr) 1,000 mls @ 100 mls/hr IVCONT .Q10H [facility] Last Admin: 11/30/23 06:33 Dose: 100 mls/hr Documented By: ALBERTO Lactated Ringer's (Lr) 1,000 mls @ 999 mls/hr IV .Q1H1M [facility] Stop: 11/30/23 08:15 Last Admin: 11/30/23 06:33 Dose: 999 mls/hr Documented By: ALBERTO Labs 12/01/23 05:37 12/01/23 05:37 Labs: Laboratory Results - last 24 hr 11/30/23 06:00 Urine Test NEGATIVE Procedures Date of Service Date of Service: 12/01/23 Progress Note: A&P Assessment and plan (1) Morbid obesity: Status: Acute Assessment and Plan: s/p laparoscopic sleeve gastrectomy, lysis of adhesions and gastropexy Doing well Will check am labs and if OK the patient will be discharged home (2) GERD (gastroesophageal reflux disease): Status: Acute (3) Osteoarthritis of left knee: Status: Acute (4) Asthma: Status: Acute (5) Anxiety: Status: Acute (6) S/P laparoscopic sleeve gastrectomy: Status: Acute (7) Pelvic mass: Status: Acute (8) Intra-abdominal adhesions: Status: Acute (9) Congenital intra-abdominal adhesions: Status: Acute Time Spent With Patient Time: Total time managing care of this patient today ____ minutes. Quality Stroke Does the patient have a stroke diagnosis?: No VTE Prior VTE?: No VTE Risk Level:: Surgical - moderate VTE Device Contraindication: N/A - Device Ordered VTE Drug Contraindication: Treatment Not Indicated
[2023-11-30] MEDS: ceFAZolin Sodium/Dextrose,Iso 2 GM/50 ML PIGGYBACK IV ×2 (07:56→13:22)
--- NOTE | 2023-11-30 08:05 | HO.ANESPROP2 ---
HPI - Anesthesia Eval Consult details Narrative: 33 yo female patient for EGD, Laparoscopic Sleeve Gastrectomy, possible diaphragmatic hernia repair, possible ventral hernia repair, possible open PMFSH Active Problems Active Problems: All Active Problems (Updated 11/30/23 @ 07:35 by Tonia Flores MD) Anxiety (Acute) Asthma (Acute) Family planning (Acute) Adjustment disorder, unspecified (Acute) Hair loss (Acute) Vitamin A deficiency (Acute) Bulky or enlarged uterus (Acute) Adult general medical exam (Acute) control counseling (Acute) Cervical cancer screening (Acute) Patient desires (Acute) Women's annual routine gynecological examination (Acute) External hemorrhoids (Acute) Osteoarthritis of left knee (Acute) Right knee pain (Acute) GERD (gastroesophageal reflux disease) (Acute) Morbid obesity (Acute) Thrombosed external hemorrhoids (Acute) Left knee pain (Acute) Migraines (Acute) Super-super obese (Acute)BMI 51.6 Allergic rhinitis (Acute) Denies ELIUD Past Medical History Medical History HTN (hypertension) Arthritis GERD (gastroesophageal reflux disease) Morbid obesity Asthma Thrombosed external hemorrhoids Left knee pain Migraines Super-super obese Allergic rhinitis Urticaria Family History Family History Mother No problems noted. Father No problems noted. 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 If so, by whom?: No Advance Directives: No Advance Directives Information Provided: No Advance Directives on File: No Recently lost weight without trying: No Eating poorly because of decreased appetite: No Nutrition Risks: No Nutritional Risk Patient : No : No Poor oral hygiene: No service: No Current occupational status: unemployed Current occupation: rt handed Cognitive needs: No Hearing needs: No Vision needs: No Meds Allergies Allergy/AdvReac Type Severity Reaction Status Date / Time pork derived (porcine) Allergy Intermediate GI ISSUES Verified 11/30/23 06:12 SEAFOOD Allergy Severe ANAPHYLAXIS Uncoded 11/30/23 06:12 Active Medications: Current Medications Albuterol Sulfate (Albuterol Sulfate (0.083%) 2.5 Mg/3 Ml Vial.Neb) 2.5 mg INHALE ONCE PRN PRN Reason: Shortness of Breath/Wheezing Hydromorphone HCl (Hydromorphone Hcl 0.5 Mg/0.5 Ml Syringe) 0.25 mg IVPUSH Q5M PRN; Protocol PRN Reason: Pain, Severe (Pain Scale 7-10) Lactated Ringer's (Lr) 1,000 mls @ 100 mls/hr IVCONT .Q10H [facility] Last Admin: 11/30/23 06:33 Dose: 100 mls/hr Lactated Ringer's (Lr) 1,000 mls @ 999 mls/hr IV .Q1H1M [facility] Stop: 11/30/23 08:15 Last Admin: 11/30/23 06:33 Dose: 999 mls/hr Ondansetron HCl (Ondansetron Hcl 4 Mg/2 Ml Vial) 4 mg IVPUSH ONCE PRN PRN Reason: Nausea and Vomiting Home Medications Medication Instructions Recorded Confirmed Last Taken Type albuterol sulfate 90 mcg/actuation 2 puff inhalation Q6H PRN 09/18/23 11/23/23 Unknown History aerosol inhaler (ProAir HFA) Shortness Of Breath Exam Height,Weight and Vital Signs: Height 5 ft 5 in Weight 140.614 kg Last Vital Signs Temp 98.1 F 11/30/23 06:32 Pulse 75 11/30/23 06:32 Resp 18 11/30/23 06:32 BP 143/75 H 11/30/23 06:32 Pulse Ox 96 02/22/24 06:32 O2 Del Method Room Air 11/30/23 06:32 Pertinent Lab Results Pertinent Lab Results: Laboratory Tests 11/24/23 11/30/23 10:20 06:00 Urine Test NEGATIVE Blood Type A Positive Antibody Screen NEGATIVE Airway Mallampati Class: II TM Dist: >3cm Neck ROM: Full Loose/Missing/Broken Teeth: No (Denies broken, loose, missing teeth) Heart: RRR Lungs: CTAB Assessment and Plan Assessment Anesthesia Assessment: Anesthesia Plan Discussed and Chart Reviewed Final Anesthetic Review Family History of Problems with Anesthesia: No History of Problems with Anesthesia: No NPO: Yes ASA Class: III Final Preanesthetic Review: No Changes in Pt Med Stat, Meds/Allgs Chart Reviewed, Consent Obtained/Reviewed and Anes Risks/Benef Reviewed Patient Risk: Intermediate Procedure Risk: Intermediate Assessment/Block/Sedation in SS: Assess/Block/Sedation-SS Anesthetic Plan Anesthetic Plan: GA Disposition: Standard PACU and Inp. Admit - Standard Bed
[2023-11-30] MEDS: Acetaminophen 1,000 MG/100 ML PIGGYBACK 400 MG IV (08:45)
--- NOTE | 2023-11-30 10:22 | PM.DS ---
DS: Providers Provider Date of Service: 12/01/23 Date of admission: 11/30/23 06:05 Primary care physician: Lorraine Cat MD DS: Diagnosis Discharge Diagnosis (1) Morbid obesity: Status: Acute (2) GERD (gastroesophageal reflux disease): Status: Acute (3) Osteoarthritis of left knee: Status: Acute (4) Asthma: Status: Acute (5) Anxiety: Status: Acute (6) S/P laparoscopic sleeve gastrectomy: Status: Acute (7) Pelvic mass: Status: Acute (8) Intra-abdominal adhesions: Status: Acute (9) Congenital intra-abdominal adhesions: Status: Acute DS: Summary Hospital Course Hospital Course: ADMITTING DIAGNOSIS: morbid obesity, asthma, OA, gerd, htn ? DISCHARGE DIAGNOSIS: same, s/p laparoscopic sleeve gastrectomy ? PAST SURGICAL HISTORY: laparoscopic cholecystectomy, cesarian section ? PROCEDURE: upper endoscopy, laparoscopic sleeve gastrectomy ? DISCHARGE SUMMARY: ? History of Present Illness: ? The patient is a?33 year-old woman with a BMI of?59 kg/m2 and associated co-morbidities as described above. The patient had extensive work-up,lost?36.3 lbs preoperatively and was electively scheduled for laparoscopic, possible open sleeve gastrectomy and gastropexy. Risks and complications of the surgery were discussed with the patient in advance, particularly the possibility of , pulmonary embolism, anastomotic leak, bleeding, bowel injury, GERD, cardiac, renal or pulmonary complications. The patient understood all the risks and was in agreement with the surgical plan. ? Hospital Course: ? The patient underwent an uneventful laparoscopic sleeve gastrectomy with gastropexy on the day of admission. Postoperatively, the patient was transferred to the surgical floor. The patient received IV Acetaminophen and IV dilaudid for pain control. Patient was started on bariatric phase 1 diet POD #0. On postoperative day one, the patient was feeling well without nausea, vomiting, fevers, or tachycardia. The patient had some mild incisional pain and the abdomen was soft. Intraoperatively, she was found to have a large right adenexal mass fixed to the abdominal wall and bulky uterus. 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 Ultrasound was ordered at that time but was unable to be obtained. Ultrasound was ordered and obtained postop day 0, formal interpretation is currently pending at the time of this dictation. This aspect of her case was discussed with OBGYN and she will follow up with Dr. Hassan for further intervention. ? On the morning of postoperative day one, the patient was continued on 1 ounce of water or ice every half hour. During the day, the patient did fairly well, having some incisional pain, but able to ambulate adequately and to tolerate liquids well. ? Since the patient is doing well, we decided that the patient was ready to be discharged. The patient was given instructions to follow-up with me next week and to call my office for any fever over 101, persistent abdominal pain, nausea, vomiting, GERD, symptoms of DVT such as calf tenderness, or leg swelling, or pulmonary embolism such as chest pain or shortness of breath. The patient was also instructed to drink 40-60 ounces of liquids per day using the 1-ounce cups. The patient had been given prescriptions for Tylenol for pain, Zofran prn for nausea, and pantoprazole and carafate previously. The patient was encouraged to ambulate and use the incentive spirometer. The patient was allowed to shower, but no baths, and encouraged to stay active at home. All of these instructions were given to the patient personally. All questions were answered and the patient understood all instructions, the instructions were also given to the patient in print. Time Attestation Discharge coordination time: Less than 30 minutes Quality: Safe Use of Opioids Does Pt have an Active Cancer Diagnosis on the Problem List?: No Quality: Stroke Does the patient have a stroke diagnosis?: No Physical Exam Vital Signs: Vital Signs: Last Vital Signs Temp 98.1 F 11/30/23 06:32 Pulse 75 11/30/23 06:32 Resp 18 11/30/23 06:32 BP 143/75 H 11/30/23 06:32 Pulse Ox 96 11/30/23 06:32 O2 Del Method Room Air 11/30/23 06:32 BMI result Body Mass Index 51.6 DS: Data Data Completed and Pending Pending studies at discharge: Pending at discharge 11/30/23 09:59 Surgical [PTH] Routine Labs on day of discharge: Laboratory Results - last 24 hr 11/30/23 06:00 Urine Test NEGATIVE Discharge Plan Discharge Anticipated Discharge Date/Time: 12/01/23 10:00 Patient Disposition: Home, Self-Care Discharge Diagnosis: s/p laparoscopic sleeve gastrectomy Referrals: Lorraine Perkins MD [Primary Care Provider] - 1 Week Discharge Medications: Continued albuterol sulfate [ProAir HFA] 90 mcg/actuation HFA aerosol inhaler 2 puff inhalation Q6H PRN (Reason: Shortness Of Breath) pantoprazole 40 mg tablet,delayed release (DR/EC) 40 mg PO DAILY Qty: 90 0RF sucralfate 100 mg/mL suspension 10 ml PO BID Qty: 600 2RF ondansetron 4 mg tablet,disintegrating 4 mg PO Q12H Qty: 20 0RF Rx Instructions: Only take one every 12 hours as needed if you have nausea Discontinued vitamin A palmitate 3,000 mcg (10,000 unit) capsule 10,000 unit PO DAILY Qty: 30 0RF cholecalciferol (vitamin D3) 50 mcg (2,000 unit) capsule 50 mcg PO DAILY 90 Days Qty: 90 3RF polyethylene glycol 3350 [Miralax] 17 gram powder in packet 17 g PO DAILY Qty: 14 0RF Rx Instructions: Mix each packet with 8oz of water, Crystal light, or Gatorade zero, or Propel and do 7 packets on 11/28/23 and another 7 packets on 11/29/23 Discharge Orders: Discharge Order (Routine); Ordered 12/01/23 Ordered By: Danny Medley Activity on Discharge: No heavy lifting Stand Alone Forms: Patient Portal Discharge page Care Plan Goals: weight loss Health Concerns: morbid obesity Plan of Treatment: No tub baths, sex or returning to work until discussed at first post op appointment. No exercise, alcohol, tobacco or illegal drug use. Continue to use incentive spirometer hourly while awake. Walk in home for 5- 10 minutes every 2 hours during the first week. Follow all instructions in the bariatric handbook and call with any questions.Discharge Instructions 1. Please call your doctor or come back to the emergency room should any new symptoms arise. 2. You will receive a courtesy call from [facility] 24-48 hours after discharge. 3. Activity: abstain from alcohol, practice limited stair climbing, no bending, no driving, no exercise, no illicit substances, no lifting, no sex, no tub bath, no work. 4. Diet: continue as discussed with Dr. Medley. 5. Dressing Change/Wound Care: Your incision is covered by clear bandages and guaze underneath. If the area is tender, you may apply an ice pack for short intervals (no more than 20 minutes on, followed by at least 20 minutes off). Do not apply heat. Do not use creams, lotions, or topical antibiotics unless instructed to do so by your surgeon. These can cause infection or allergic reaction. 6. Call your doctor if: - Your temperature exceeds 101.5 F - You experience excessive pain or swelling - You have an unexpected reaction to medication - You have excessive bleeding - You experience continued vomiting/nausea - Your incision begins to separate - Your incision shows signs of infection such as increased redness, swelling, excessive pain, heat, or drainage (light blood or clear fluid is normal) 7. General instructions: No lifting greater than 5 lbs for 1 week and not more than 20lbs the next 3?weeks. No driving until seen at the office in 5-7 days after surgery. If you do not move your bowels in the next 2 days, please tell?Dr. Medley. Please walk around your home every hour or two to prevent blood clots from forming in your legs. You do not need to wake from sleeping to walk. Please sleep in a bed or couch to prevent kinking at the hips and knees. Please take your incentive spirometer (your lung ice cream server) home with you and use it for the next few days to prevent pneumonia. You may shower, no hot tubs, baths or swimming pools.?Please follow the post op diet instructions you are?given by Dr Medley? and text me daily at 5-6pm for an update.?If you have any issues or concerns or questions please communicate this to him via text.? The Celebrate shakes have all of the bariatric vitamins you need if you consume these shakes. If you are drinking other protein shakes, you will need to purchase the Celebrate multivitamins and calcium that are available in the hospital gift shop on the first floor of the main hospital.??Do not take anything without first discussing with Dr Medley. Please make sure you are consuming at least 40 ounces of fluids per day starting the?day AFTER your discharge from the hospital. Always drink 1-2 ml per minute using the 5ml?syringe. If you drink faster you may experience?bloating,?gas pain, burping, nausea or heartburn. In that case please slow down your pace and use the syringe to?understand better the?proper?pace and volume of drinking. Do not hesitate to contact the office with any questions at . The patient's medical history has been reviewed and they are considered low risk for post op DVT and therefore DVT prophylaxis is not considered necessary. Travel after surgery was reviewed. The patient has not disclosed any travel plans during the first 30 days after surgery and they have been advised that within the first 30 days after surgery any bus, plane, train or car travel over 2 hours in duration is contraindicated due to the possibility of developing blood clots from immobility. Any travel, needs to include periods of ambulation of 10 minutes in duration every 2 hours.? The patient was instructed to discuss any plans for travel during this period with their bariatric surgeon. Assessment: stable s/p laparoscopic sleeve gastrectomy Discharge Date/Time: 12/01/23 08:45
[2023-11-30 10:38] LABS: Hematocrit 40.8 % (37.0-47.0); Hemoglobin 13.8 g/dl (12.0-16.0)
[2023-11-30 11:03] LABS: Anion Gap 20 (12-20); Blood Urea Nitrogen 8 mg/dL (9-16); Calcium 9.4 mg/dL (8.4-10.2); Carbon Dioxide 19 mmol/L (22-29); Chloride 106 mmol/L (96-108); Creatinine Clr Calc Pharmacy 151.7; Estimated Glomerular Filt Rate > 60; Glucose Random 124 mg/dL (60-115); Potassium 3.6 mmol/L (3.3-5.1); Sodium 141 mmol/L (135-145)
[2023-11-30] MEDS: HYDROmorphone HCl 0.5 MG/0.5 ML SYRINGE 0.25 MG IVPUSH ×2 (11:35→15:54)
[2023-11-30] MEDS: Acetaminophen 1,000 MG/100 ML PIGGYBACK 16.7 MG IV ×2 (14:08→19:38)
[2023-11-30] MEDS: Metoclopramide HCl 10 MG/2 ML VIAL IVPUSH (16:30)
[2023-11-30] MEDS: ondansetron HCL 4 MG/2 ML VIAL IVPUSH (19:38)
[2023-11-30] MEDS: Famotidine/PF 20 MG/2 ML VIAL IVPUSH (19:39)
[2023-11-30] MEDS: 0.9 % Sodium Chloride Flush 3 ML SYRINGE IVFLUSH (19:39)
[2023-12-01] MEDS: Acetaminophen 1,000 MG/100 ML PIGGYBACK 16.7 MG IV (01:39)
[2023-12-01 03:39] VITALS: BP 126/75; PULSE 70; RESP 18; TEMP 36.2; O2SAT 98
[2023-12-01] MEDS: HYDROmorphone HCl 0.5 MG/0.5 ML SYRINGE 0.25 MG IVPUSH (05:28)
[2023-12-01 06:02] LABS: MANUAL DIFF FLAG NO
[2023-12-01 06:07] LABS: Basophils Percent Auto 0.1 % (0-2); Hematocrit 40.5 % (37.0-47.0); Hemoglobin 13.8 g/dl (12.0-16.0); Imm Gran Abs Auto 0.06 X10*3/uL (0.00-0.03); Imm Gran Pct Auto 0.4 % (0.0-0.4); Lymphocytes Absolute Auto 1.6 X10*3/uL (1.2-4.9); Lymphocytes Percent Auto 11.3 % (20-40); Mean Corpuscular HGB Conc 34.1 g/dl (31.0-35.0); Mean Corpuscular Hemoglobin 31.4 pg (27.0-33.0); Mean Platelet Volume 10.8 fL (9.4-12.3); Monocytes Absolute Auto 0.8 X10*3/uL (0.1-1.2); Monocytes Percent Auto 5.7 % (2-11); Neutrophils Percent Auto 82.5 % (45-73); Platelet Count 219 X10*3/uL (160-400); Red Cell Distribution Width 13.8 % (11.0-16.0); White Blood Count 14.6 X10*3/uL (4.8-10.8)
[2023-12-01 06:18] LABS: Anion Gap 18 (12-20); Blood Urea Nitrogen 6 mg/dL (9-16); Calcium 9.3 mg/dL (8.4-10.2); Carbon Dioxide 17 mmol/L (22-29); Chloride 109 mmol/L (96-108); Creatinine Clr Calc Pharmacy 153.7; Estimated Glomerular Filt Rate > 60; Glucose Random 100 mg/dL (60-115); Sodium 140 mmol/L (135-145)
[2023-12-01 07:47] VITALS: BP 146/79; PULSE 55; RESP 12; TEMP 36.1; O2SAT 96
--- NOTE | 2023-12-01 08:38 | HO.POSTANES ---
Post Anesthesia Evaluation Post Anesthesia Evaluation Date of Service: 12/01/23 Vital Signs: Vital Signs Temp Pulse Resp BP Pulse Ox O2 Del Method 12/01/23 07:47 97.0 F 55 12 146/79 H 96 Room Air 12/01/23 03:39 97.2 F 70 18 126/75 98 Room Air 11/30/23 23:34 97 F 62 18 138/74 96 Room Air Anesthesia: General Endotracheal-GETA Mental Status: Awake Pain Control: Satisfactory Nausea/Vomiting: None Hydration: Adequate Anesthesia-Related Issues: No Anes. Related Issues
== END 2023-12-01 08:45 | disposition home or self-care (01) | DRG 403 ==
LOC: HO.SSSA 10:25 → HO.S3 10:44
PROVIDERS: Nurse Practitioner; Physician Assistant Surgical; Admitting Provider Surgery; PCP Internal Medicine; Visit Provider Surgery
PROC: 0DB64Z3 Excision of Stomach, Percutaneous Endoscopic Approach, Vertical (ICD-10-PCS; CPT 43845; principal; 2023-11-30 07:30)
DX: E66.01 Morbid (severe) obesity due to excess calories (principal); K74.00 Hepatic fibrosis, unspecified; Q43.3 Congenital malformations of intestinal fixation; R19.00 Intra-abdominal and pelvic swelling, mass and lump, unspecified site; F41.9 Anxiety disorder, unspecified; J45.909 Unspecified asthma, uncomplicated; K21.9 Gastro-esophageal reflux disease without esophagitis; Z68.43 Body mass index [BMI] 50.0-59.9, adult; Z79.899 Other long term (current) drug therapy
CPT/HCPCS: 36415; 76830; 76856; 80048; 81025; 85014; 85018; 85025; 86850; 86900; 86901; 88304; 88305; 88307; 88342; A4649; C9145; J0131; J0690; J1100; J1170; J2250; J2405; J2550; J2704; J2765; J2795; J3010; J7120

== ENCOUNTER → 2023-11-30 06:05 | Outpatient (BNV) | payer OTHER, SELFPAY | PROVIDERS: Admitting Provider Surgery; PCP Internal Medicine; Visit Provider Surgery | DX: E66.01 Morbid (severe) obesity due to excess calories (principal); Z68.43 Body mass index [BMI] 50.0-59.9, adult; K66.0 Peritoneal adhesions (postprocedural) (postinfection) | CPT/HCPCS: 43659; 43775; 99024 ==

== ENCOUNTER 2023-12-05 10:14 | Outpatient (AMB) | payer OTHER, SELFPAY ==
--- NOTE | 2023-12-05 10:32 | MHC.OFFVISWM ---
Intake VS Expanded 12/05/23 10:58 BP 157/75 H Blood Pressure Location Rt brachial Blood Pressure Position Sitting Pulse 80 Pulse Source Pulse Oximeter Temp 97.3 F Temperature Source Tympanic Pulse Oximetry 97 Oxygen Delivery Method Room Air Height 5 ft 5 in Weight 305 lb 12.8 oz BMI 50.9 Body Fat % 46.1 Body Fat Mass 140.8 Fat Free Mass 165.0 Visceral Fat Rating 15.0 Body Water % 38.7 Body Water Mass 118.4 Muscle Mass/Score 156.6 Basal Metabolic Rate/Score 2,375 Intake Visit Reasons: (OV) PO LSG 11/30/23 Allergies pork derived (porcine) Allergy (Intermediate, Verified 11/30/23 06:12) GI ISSUES SEAFOOD Allergy (Severe, Uncoded 11/30/23 06:12) ANAPHYLAXIS HPI HPI Comments History of Present Illness Details Patient is a pleasant 33-year-old female who returns to the office today in follow-up. She is postop day 5., status post sleeve gastrectomy performed by Dr. Medley on 11/30/2023. She is tolerating 3 celebrate 4 in 1 shakes with 8 oz of water each and 1 scoop of protein powder Positive bowel movement, no complaints of pain. She did note a nonpruritic rash to the area of the abdominal binder. [facility] Medical History (Updated 12/02/23 @ 00:02 by Jamal Birmingham) Family planning Adult general medical exam control counseling Cervical cancer screening Patient desires Women's annual routine gynecological examination HTN (hypertension) Arthritis GERD (gastroesophageal reflux disease) Morbid obesity Asthma Thrombosed external hemorrhoids Left knee pain Migraines Super-super obese Allergic rhinitis Urticaria Surgical History Hx of laparoscopic partial gastrectomy History of esophagogastroduodenoscopy (EGD) History of wisdom tooth extraction History of placement of ear tubes History of History of cholecystectomy Family History Mother No problems noted. Father No problems noted. Paternal Aunt Breast cancer Social History Household Members: Family Housing: Apartment Are you a primary personal care attendant to a significant other at home: Yes Do you presently have visiting nurse or other home services: No Alcohol intake: never Patient Tobacco Use Status: Never used Tobacco e-Cigarette/Vaping Use: Never Used Second Hand Smoke Exposure: No Substance Use Type: Marijuana service: No Current occupational status: unemployed Current occupation: rt handed Cognitive needs: No Hearing needs: No Vision needs: No Female Reproductive History Menstrual Age of Menarche: 15 Physical Exam Vital Signs: Last Vital Signs Temp 97.3 F 12/05/23 10:58 Pulse 80 12/05/23 10:58 BP 157/75 H 12/05/23 10:58 Pulse Ox 97 12/05/23 10:58 Oxygen Delivery Method Room Air 12/05/23 10:58 BMI result Body Mass Index 50.9 Skin Other: Very minimal erythema without warmth to the left lateral midline incision. Petechial rash in the area of the abdominal binder. No evidence of dehiscence or infection. Assessment & Plan Assessment & Plan (1) S/P laparoscopic sleeve gastrectomy: Code(s): Z98.84 - Bariatric surgery status Plan: POD 5 s/p LSG on 11/30/[address] Medley Weight loss prior to surgery was 36.3 pounds or []10.2 % TBWL. Original weight on 09/18/2023 was 354.6 pounds and op weight was 318.3 pounds. Be sure to text Dr Medley exactly 1 week after surgery your weight from your home scale so he can adjust your meal plan. Continue meal plan until f/u w Ritesh in 2 weeks May shower, no submersion in bath for another week Continue abdominal binder with activity and exercise for the next 2 weeks. 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 (2) Pelvic mass: Code(s): R19.00 - Intra-abdominal and pelvic swelling, mass and lump, unspecified site Plan: Ultrasound suggestive of fibroid however CT or MRI recommended. She has a follow-up appointment with OBGYN, Dr. Hassan on Monday Coding Level of Care Code Global (86203) Diagnoses S/P laparoscopic sleeve gastrectomy Z98.84 Pelvic mass R19.00
[2023-12-05 10:58] VITALS: BP 157/75; PULSE 80; TEMP 36.3; O2SAT 97; BMI 50.9
== END 2023-12-05 11:23 | disposition home or self-care (01) ==
PROVIDERS: PCP Internal Medicine; Visit Provider Physician Assistant Surgical
DX: Z98.84 Bariatric surgery status (principal); R19.00 Intra-abdominal and pelvic swelling, mass and lump, unspecified site
CPT/HCPCS: 99024

== ENCOUNTER → 2023-12-05 10:14 | Outpatient (BNVA) | payer OTHER, SELFPAY | PROVIDERS: PCP Internal Medicine; Visit Provider Physician Assistant Surgical | DX: R19.00 Intra-abdominal and pelvic swelling, mass and lump, unspecified site (principal); Z98.84 Bariatric surgery status | CPT/HCPCS: 99212 ==

== ENCOUNTER 2023-12-11 12:39 | Outpatient (REF) | payer OTHER, SELFPAY ==
[2023-12-12 11:02] LABS: CT PCR NOT DETECTED (Not Detect.); NG PCR NOT DETECTED (Not Detect.)
== END 2023-12-11 12:40 | disposition home or self-care (01) ==
LOC: HO.LNP 12:39
PROVIDERS: PCP Internal Medicine; Visit Provider Obstetrics & Gynecology
DX: R19.00 Intra-abdominal and pelvic swelling, mass and lump, unspecified site (principal)
CPT/HCPCS: 0353U; 99212

== ENCOUNTER 2023-12-11 12:39 | Outpatient (AMB) | payer OTHER, SELFPAY ==
--- NOTE | 2023-12-11 12:46 | MHC.OFFVIS ---
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 Medley's office regarding finding of a pelvic mass intraoperative laparoscopic gastric sleeve described as the following in the operative note: there was a large mass that seems to be originating either from the uterus or right adnexa. It appeared to be complex in nature, benign appearing but fixed to the right pelvic side wall. Pictures were obtained and were sent to Dr. Hassan who will see the patient. A pelvic ultrasound will be also ordered while she is in the hospital. Pelvic ultrasound showed the following: UTERUS: The uterus is anteverted, enlarged and measures 13.2 x 7.0 x 6.6 cm. There is likely a large mass in the fundus with the borders not well visualized. The double wall endometrial thickness is 7.0 mm. The lower uterus is smooth and homogeneous. No myometrial enlargement is seen. A fundal fibroid is likely suspected. ADNEXA: There is no pelvic ascites or fluid collection. Right ovary is not visualized. The previously it measured 3.9 x 1.7 x 2.7 cm. Left ovary measures 3.8 x 3.4 x 3.1 cm and volume 20.97 mL. Previously it measured 2.1 x 1.1 x 2.0 cm. The patient has been complaining of a right-sided pelvic pressure of the last few months. Last co testing was in 2020 was negative PFSH Medical History Family planning Adult general medical exam control counseling Cervical cancer screening Patient desires Women's annual routine gynecological examination HTN (hypertension) Arthritis GERD (gastroesophageal reflux disease) Morbid obesity Asthma Thrombosed external hemorrhoids Left knee pain Migraines Super-super obese Allergic rhinitis Urticaria Surgical History Hx of laparoscopic partial gastrectomy History of esophagogastroduodenoscopy (EGD) History of wisdom tooth extraction History of placement of ear tubes History of History of cholecystectomy Family History Mother No problems noted. Father No problems noted. Paternal Aunt Breast cancer Social History Household Members: Family Housing: Apartment Are you a primary health and social care teacher to a significant other at home: Yes Do you presently have visiting nurse or other home services: No Alcohol intake: never Patient Tobacco Use Status: Never used Tobacco e-Cigarette/Vaping Use: Never Used Second Hand Smoke Exposure: No Substance Use Type: Marijuana Patient : No service: No Current occupational status: unemployed Current occupation: rt handed Cognitive needs: No Hearing needs: No Vision needs: No Female Reproductive History Menstrual Age of Menarche: 15 Date of last menstrual period: 11/30/23 Review of Systems Const All systems reviewed & are unremarkable except as noted in HPI and below Reports as per HPI and Reports no additional complaints GI Reports no additional complaints Reports no additional complaints Physical Exam Vital Signs: Last Vital Signs BP 132/72 12/11/23 12:47 BMI result Body Mass Index 50.7 General: Yes no CVA tenderness External Female Exam: normal external appearance and normal appearance of the urethra Speculum Exam - Vagina: normal appearance of the vagina, normal palpation, no lesions and no masses Speculum Exam - Cervix: normal appearance of the cervix, normal palpation, no lesions, no masses and nontender Bimanual exam- vagina & uterus: normal bimanual exam, normal palpation, normal palpation, uterine shape normal, No Cervical tenderness present, non-tender and other (20 week size pelvic mass) Bimanual Exam- Adnexa, other: normal adnexae Back/Spine/Pelvis Back: no CVA tenderness Assessment & Plan Assessment & Plan (1) Pelvic mass: Comment: Uterine myoma versus ovarian mass Code(s): R19.00 - Intra-abdominal and pelvic swelling, mass and lump, unspecified site Plan: Discussed with the patient the finding on ultrasound showing uterine mass without identifying the border possible myoma versus ovarian mass since the right ovary was not identified on ultrasound, Will order pelvic MRI with and without contrast. Instructions given to the patient to schedule MRI follow-up appointment. All questions answered, the patient verbalized understanding Orders: Orders MR pelvis wo/w con Today R19.00 - Intra-abdominal and pelvic swelling, mass and lump, unspecified site Coding Level of Care Code Est Pt Level 3 (78522) Diagnoses Pelvic mass R19.00
[2023-12-11 12:47] VITALS: BP 132/72; BMI 50.7
== END 2023-12-11 13:13 | disposition home or self-care (01) ==
LOC: HO.HWS 12:40
PROVIDERS: PCP Internal Medicine; Visit Provider Obstetrics & Gynecology
DX: R19.00 Intra-abdominal and pelvic swelling, mass and lump, unspecified site (principal)
CPT/HCPCS: 99213

== ENCOUNTER 2023-12-25 11:18 | Outpatient (AMB) | payer OTHER, SELFPAY ==
--- NOTE | 2023-12-25 10:26 | MHC.OFFVISWM ---
Intake VS Expanded 12/25/23 10:27 Height 5 ft 5 in Weight 286 lb 4 oz BMI 47.6 Intake Visit Reasons: (TV) PO LSG 11/30/23 Seat Builder Required: No Allergies pork derived (porcine) Allergy (Intermediate, Verified 12/11/23 12:48) GI ISSUES SEAFOOD Allergy (Severe, Uncoded 12/11/23 12:48) ANAPHYLAXIS Medication List - Last Reconciled 12/25/23 by KEISHA Albright albuterol sulfate 90 mcg/actuation (ProAir HFA) 2 puffs inhalation Q6H PRN pantoprazole 40 mg PO DAILY sucralfate 10 mL PO BID HPI HPI Comments History of Present Illness Details This?a?33?yo female who is s/p LSG without hiatal hernia repair on?11/30/2023. Presents for one-month post op visit. Weight today is 286.4 pounds, with a BMI of 47.6. There has been a 68.2 pound weight loss,(initial weight 354.6 pounds) since starting the program on 09/18/2023 reflecting a 19.2 % total body weight loss and a weight loss of 31.9 pounds since surgery (operative weight 318.3 pounds) reflecting a 10 % TBWL since surgery. No complaints of nausea, emesis, abdominal pain or reflux. Reports infrequent but normal bowel movements every 2 days. Saw ELECTRICAL ASSEMBLY TECHNICIAN for pelvic mass and scheduled for pelvic MRI 01/03/24. She states she feels awesome and she has been getting tired of the shakes and wanted to eat something. Present meal plan includes: celebrate 4 in 1 2 shakes, 2 scoops each in 8 oz almond milk at 8-10, 11-1 Premier protein RTD 2-4 pm protein bar 5-8 pm, [place] 10 gm Drinking 48 oz water ? Exercise routine includes: gym PF, treadmill and bike, 4 days per week, PFSH Medical History Family planning Adult general medical exam control counseling Cervical cancer screening Patient desires Women's annual routine gynecological examination HTN (hypertension) Arthritis GERD (gastroesophageal reflux disease) Morbid obesity Asthma Thrombosed external hemorrhoids Left knee pain Migraines Super-super obese Allergic rhinitis Urticaria Surgical History Hx of laparoscopic partial gastrectomy History of esophagogastroduodenoscopy (EGD) History of wisdom tooth extraction History of placement of ear tubes History of History of cholecystectomy Family History Mother No problems noted. Father No problems noted. Paternal Aunt Breast cancer Social History Household Members: Family Housing: Apartment Are you a primary resident care manager to a significant other at home: Yes Do you presently have visiting nurse or other home services: No Alcohol intake: never Patient Tobacco Use Status: Never used Tobacco e-Cigarette/Vaping Use: Never Used Second Hand Smoke Exposure: No Substance Use Type: Marijuana service: No Current occupational status: unemployed Current occupation: rt handed Cognitive needs: No Hearing needs: No Vision needs: No Female Reproductive History Menstrual Age of Menarche: 15 Assessment & Plan Assessment & Plan (1) Morbid obesity: Code(s): E66.01 - Morbid (severe) obesity due to excess calories Plan: Patient is making good progress. She will continue her current meal plan. She has been in contact with Dr. Medley and meal plan has been adjusted. She will continue current plan and exercise. Return to the office in 1 month. (2) Uterine myoma: Code(s): D25.9 - Leiomyoma of uterus, unspecified Qualifiers: Uterine leiomyoma location: unspecified location Qualified Code(s): D25.9 - Leiomyoma of uterus, unspecified Plan: Scheduled for MRI at the end of the month, followed by OBGYN. Telehealth Telehealth Location of provider rendering services: practice address Location of patient: address on file Patient Identification confirmed using: Name, : Yes Telehealth method: voice only Patient verbally consented to treatment: Yes Patient verbally consented to billing insurance company: Yes Patient informed of any privacy concerns related to visit: Yes Minutes spent on Phone/Video with Pt.: 15 Coding Level of Care Code Global (08582) Diagnoses Morbid obesity E66.01 Uterine leiomyoma, unspecified location D25.9 Uterine leiomyoma location: unspecified location
[2023-12-25 10:27] VITALS: BMI 47.6
== END 2023-12-25 12:55 | disposition home or self-care (01) ==
LOC: HO.HBS 11:19
PROVIDERS: PCP Internal Medicine; Visit Provider Physician Assistant Surgical
DX: E66.01 Morbid (severe) obesity due to excess calories (principal); D25.9 Leiomyoma of uterus, unspecified
CPT/HCPCS: 99024

== ENCOUNTER → 2023-12-25 11:18 | Outpatient (BNVA) | payer OTHER, SELFPAY | PROVIDERS: PCP Internal Medicine; Visit Provider Physician Assistant Surgical | DX: E66.01 Morbid (severe) obesity due to excess calories (principal); D25.9 Leiomyoma of uterus, unspecified; Z68.42 Body mass index [BMI] 45.0-49.9, adult | CPT/HCPCS: 99212 ==

== ENCOUNTER 2023-12-28 10:42 | Outpatient (AMB) | payer OTHER, SELFPAY ==
--- NOTE | 2023-12-28 10:51 | MHC.OFFVIS ---
Intake Vital Signs 12/28/23 10:57 Height 5 ft 5 in Weight 286 lb BMI 47.6 BP 128/88 Blood Pressure Location Lt brachial Position Sitting Intake Visit Reasons: IUD mirena insertion Information Interpreted: non-clinical & clinical Accompanied by: Self / Same As Patient Allergies pork derived (porcine) Allergy (Intermediate, Verified 12/28/23 10:57) GI ISSUES SEAFOOD Allergy (Severe, Uncoded 12/28/23 10:57) ANAPHYLAXIS Is last menstrual period known: Yes Last menstrual period: 12/27/23 Post menopausal: No Patient : No HPI HPI Comments History of Present Illness Details Presenting requesting Mirena IUD insertion PFS Medical History Family planning Adult general medical exam control counseling Cervical cancer screening Patient desires Women's annual routine gynecological examination HTN (hypertension) Arthritis GERD (gastroesophageal reflux disease) Morbid obesity Asthma Thrombosed external hemorrhoids Left knee pain Migraines Super-super obese Allergic rhinitis Urticaria Surgical History Hx of laparoscopic partial gastrectomy History of esophagogastroduodenoscopy (EGD) History of wisdom tooth extraction History of placement of ear tubes History of History of cholecystectomy Family History Mother No problems noted. Father No problems noted. Paternal Aunt Breast cancer Social History Household Members: Family Housing: Apartment Are you a primary progressive care manager to a significant other at home: Yes Do you presently have visiting nurse or other home services: No Alcohol intake: never Patient Tobacco Use Status: Never used Tobacco e-Cigarette/Vaping Use: Never Used Second Hand Smoke Exposure: No Substance Use Type: Marijuana service: No Current occupational status: unemployed Current occupation: rt handed Cognitive needs: No Hearing needs: No Vision needs: No Female Reproductive History Menstrual Age of Menarche: 15 Date of last menstrual period: 12/27/23 Review of Systems Const All systems reviewed & are unremarkable except as noted in HPI and below Physical Exam Vital Signs: Last Vital Signs BP 128/88 12/28/23 10:57 BMI result Body Mass Index 47.6 General: Yes no CVA tenderness External Female Exam: normal external appearance and normal appearance of the urethra Speculum Exam - Vagina: normal appearance of the vagina, normal palpation, no lesions and no masses Speculum Exam - Cervix: normal appearance of the cervix, normal palpation, no lesions, no masses and nontender Bimanual exam- vagina & uterus: normal bimanual exam, normal palpation, normal palpation, uterine shape normal, No Cervical tenderness present, non-tender and other (Pelvic mass ovarian versus myoma) Bimanual Exam- Adnexa, other: normal adnexae Back/Spine/Pelvis Back: no CVA tenderness Results AMB Test Urine AMB Test Urine Negative Last Edit by Beth Drummond MA on 12/28/23 11:16 Results Reviewed Results Reviewed: Laboratory Last Values Tst Clinic Negative 12/28/23 11:04 Assessment & Plan Assessment & Plan (1) Family planning: Code(s): Z30.09 - Encounter for other general counseling and advice on contraception Plan: Speculum inserted , because of the large pelvic mass, the cervix anatomy/location is distorted after attempted multiple speculum sizes , I was unable to visualize the cervix to proceed with IUD insertion. The procedure was aborted. Discussed with the patient the different options of control including control pills/Nuvaring, Depo Medroxy Progesterone Acetate, dear methods. All the pros, cons, risks and benefits of each were discussed with the patient. The patient decided to proceed with condoms. Discussion with the patient regarding high failure rate with condom use as a method of contraception was discussed with the patient. Instructions were given to schedule MRI follow-up appointment to discuss options of treatment. Coding Level of Care Code Est Pt Level 3 (51842) Diagnoses Family planning Z30.09
[2023-12-28 10:57] VITALS: BP 128/88; BMI 47.6
== END 2023-12-28 11:35 | disposition home or self-care (01) ==
LOC: HO.HWS 10:42
PROVIDERS: PCP Internal Medicine; Visit Provider Obstetrics & Gynecology
DX: Z32.02 Encounter for pregnancy test, result negative (principal); Z30.09 Encounter for other general counseling and advice on contraception
CPT/HCPCS: 99213

== ENCOUNTER → 2023-12-28 10:42 | Outpatient (BNVA) | payer OTHER, SELFPAY | PROVIDERS: PCP Internal Medicine; Visit Provider Obstetrics & Gynecology | DX: Z30.09 Encounter for other general counseling and advice on contraception (principal); Z53.09 Procedure and treatment not carried out because of other contraindication | CPT/HCPCS: 81025; 99212 ==

== ENCOUNTER 2024-01-03 07:59 | Outpatient (REF) | payer OTHER, SELFPAY ==
--- NOTE | ~2024-01-03 | MR_ITS ---
EXAMINATION: MR PELVIS WITHOUT AND WITH CONTRAST CLINICAL INFORMATION: 33-year-old female with pelvic pain. Pelvic mass/lump. History of section more than 10 years ago. COMPARISON: Pelvic ultrasound from 11/30/2023. TECHNIQUE: MR imaging of the pelvis is performed using standard sequences on a high-field magnet without and with intravenous administration of 10 mL Gadavist. FINDINGS: UTERUS AND CERVIX: The uterus is anteverted, anteflexed and displaced posteriorly and to the left of midline by prominent leiomyomatous changes. The uterus measures approximately 14 cm in length from cervix to fundus. The endometrium is 0.3 cm AP thickness. The uterus is enlarged due to presence of what appears to represent an unusual, atypical leiomyoma or clustered leiomyomas, and in some regions there is a nwwnvqrny-npplsp-nfuqwduki appearance of lesions. The large lobulated heterogeneous mass is predominantly a subserosal lesion that projects from the anterior uterus, extending from the fundus to the lower uterine segment, and consisting of several clustered heterogeneous solid contrast enhancing components including a lesion that courses across the site of an old section scar. The entire mass measures up to 16.5 cm transverse, 8.5 cm AP and 16 cm craniocaudal. A small component of the mass has endometrial contact (image 9, series 4), but there is no component of the lesion that travels into the endometrial cavity. ADNEXA: The left ovary is 2.4 x 2.8 x 3.5 cm and has multiple normal-sized follicles (image 12, series 5). The right ovary is projecting superior to the uterus and measures approximately 2.7 x 2.3 x 2 cm. A small simple cyst or follicle projecting superior to the right ovary is 2 cm maximum dimension. Also, there is a simple cyst projecting from the right side of the ovary that measures up to 2 cm maximum dimension. No imaging follow-up is required/recommended for these observations. No evidence of hemorrhagic ovarian cyst or endometriosis. FREE FLUID: There is no free fluid in the pelvic cul-de-sac. LYMPHOVASCULAR: The visualized vessels within the pelvis are patent. No common femoral or iliac vein thrombosis. No pathologic sized lymph nodes. URINARY BLADDER: Urinary bladder and urethra are normal. GASTROINTESTINAL: No dilated bowel loops. The sigmoid colon and rectum are unremarkable. ABDOMINAL WALL: There are foci of susceptibility artifact from prior surgery in the lower abdominal wall. No abdominal wall or inguinal hernia. MUSCULOSKELETAL: No acute or suspicious osseous abnormality. MR/MR pelvis wo/w con IMPRESSION: A large heterogeneous mass arises from the anterior uterus. This is predominantly a subserosal lesion extending from the uterine fundus to the lower uterine segment and a component of the mass appears to travel through the area of an old section scar. This is an unusual leiomyoma like lesion. Consider the possibility of an atypical leiomyoma or a smooth muscle tumor of uncertain malignant potential (STUMP lesion).
[2024-01-03] MEDS: gadobutroL 10 ML VIAL IVPUSH (09:01)
== END 2024-01-03 08:00 | disposition home or self-care (01) ==
LOC: HO.MRI 07:59
PROVIDERS: PCP Internal Medicine; Visit Provider Obstetrics & Gynecology
DX: R19.00 Intra-abdominal and pelvic swelling, mass and lump, unspecified site (principal)
CPT/HCPCS: 72197; A9585

== ENCOUNTER 2024-01-16 13:31 | Outpatient (AMB) | payer OTHER, SELFPAY ==
[2024-01-16 13:59] VITALS: BP 130/82; BMI 47.6
--- NOTE | 2024-01-16 13:59 | A.OFFVIS_ITS ---
Intake Vital Signs 01/16/24 13:59 Height 5 ft 5 in Weight 286 lb BMI 47.6 BP 130/82 Intake Visit Reasons: MRI follow up Explosive Ordnance Specialist Required: No Allergies pork derived (porcine) Allergy (Intermediate, Verified 01/16/24 13:59) GI ISSUES SEAFOOD Allergy (Severe, Uncoded 01/16/24 13:59) ANAPHYLAXIS Is last menstrual period known: Yes Last menstrual period: 12/29/23 Post menopausal: No Patient : No HPI HPI Comments History of Present Illness Details Presenting for MRI follow-up done on 01/03/2024 with showed the following: IMPRESSION: A large heterogeneous mass arises from the anterior uterus. This is predominantly a subserosal lesion extending from the uterine fundus to the lower uterine segment and a component of the mass appears to travel through the area of an old section scar. This is an unusual leiomyoma like lesion. Consider the possibility of an atypical leiomyoma or a smooth muscle tumor of uncertain malignant potential (STUMP lesion) The patient was initially seen few weeks ago referred from Dr. Medley's office regarding finding of a pelvic mass intraoperative laparoscopic gastric sleeve described as the following in the operative note: there was a large mass that seems to be originating either from the uterus or right adnexa. It appeared to be complex in nature, benign appearing but fixed to the right pelvic side wall. Pictures were obtained and were sent to Dr. Hassan who will see the patient. A pelvic ultrasound done in 12/02 showed the following: IMPRESSION: Large midline fundal uterine mass, likely a uterine fibroid. The borders of this mass are not distinct. 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 Right ovary not seen. Left ovary suboptimally visualized. Recommend correlation with limited CT pelvis or MRI pelvis. [facility] Medical History Family planning Adult general medical exam control counseling Cervical cancer screening Patient desires Women's annual routine gynecological examination HTN (hypertension) Arthritis GERD (gastroesophageal reflux disease) Morbid obesity Asthma Thrombosed external hemorrhoids Left knee pain Migraines Super-super obese Allergic rhinitis Urticaria Surgical History Hx of laparoscopic partial gastrectomy History of esophagogastroduodenoscopy (EGD) History of wisdom tooth extraction History of placement of ear tubes History of History of cholecystectomy Family History Mother No problems noted. Father No problems noted. Paternal Aunt Breast cancer Social History Household Members: Family Housing: Apartment Are you a primary home health care worker to a significant other at home: Yes Do you presently have visiting nurse or other home services: No Alcohol intake: never Patient Tobacco Use Status: Never used Tobacco e-Cigarette/Vaping Use: Never Used Second Hand Smoke Exposure: No Substance Use Type: Marijuana Patient : No service: No Current occupational status: unemployed Current occupation: rt handed Cognitive needs: No Hearing needs: No Vision needs: No Female Reproductive History Menstrual Age of Menarche: 15 Date of last menstrual period: 12/29/23 control method: none Review of Systems Const All systems reviewed & are unremarkable except as noted in HPI and below Reports as per HPI and Reports no additional complaints GI Reports no additional complaints Reports no additional complaints Physical Exam Vital Signs: Last Vital Signs BP 130/82 01/16/24 13:59 BMI result Body Mass Index 47.6 Assessment & Plan Assessment & Plan (1) Pelvic mass: Comment: Atypical leiomyoma or a smooth muscle tumor of uncertain malignant potential (STUMP lesion) by MRI Code(s): R19.00 - Intra-abdominal and pelvic swelling, mass and lump, unspecified site Plan: Discussed with the patient the results of MRI showing a uterine mass possible atypical leiomyoma or a smooth muscle tumor of uncertain malignant potential, will refer to shift foreman Oncology for further management. Appointment scheduled on 01/25 at 08:[address] Castro at [facility] shift foreman Oncology, the patient is aware Orders: Referrals Gynecologic Oncology Referral R19.00 - Intra-abdominal and pelvic swelling, mass and lump, unspecified site Coding Level of Care Code Est Pt Level 3 (44415) Diagnoses Pelvic mass R19.00
== END 2024-01-16 15:20 | disposition home or self-care (01) ==
PROVIDERS: PCP Internal Medicine; Visit Provider Obstetrics & Gynecology
DX: R19.00 Intra-abdominal and pelvic swelling, mass and lump, unspecified site (principal)
CPT/HCPCS: 99213

== ENCOUNTER → 2024-01-16 13:31 | Outpatient (BNVA) | payer OTHER, SELFPAY | PROVIDERS: PCP Internal Medicine; Visit Provider Obstetrics & Gynecology | DX: R19.00 Intra-abdominal and pelvic swelling, mass and lump, unspecified site (principal) | CPT/HCPCS: 99212 ==

== ENCOUNTER 2024-01-23 13:12 | Outpatient (AMB) | payer OTHER, SELFPAY ==
--- NOTE | 2024-01-23 09:21 | A.OFFVIS_ITS ---
Intake VS Expanded 01/23/24 09:22 Height 5 ft 5 in Weight 268 lb 3.2 oz BMI 44.6 Body Fat % 58.5 Body Fat Mass 156. Fat Free Mass 111.4 Visceral Fat Rating 25 Body Water % 28.4 Body Water Mass 76.1 Muscle Mass/Score 104.6 Basal Metabolic Rate/Score 1,467 Intake Visit Reasons: (TV) PO LSG 11/30/23 Sheet Rock Applicator Required: No Allergies pork derived (porcine) Allergy (Intermediate, Verified 01/16/24 13:59) GI ISSUES SEAFOOD Allergy (Severe, Uncoded 01/16/24 13:59) ANAPHYLAXIS Medication List - Last Reconciled 01/23/24 by KEISHA Albright albuterol sulfate 90 mcg/actuation (ProAir HFA) 2 puffs inhalation Q6H PRN pantoprazole 40 mg PO DAILY HPI HPI Comments History of Present Illness Details This?a?33?yo female who is s/p LSG without hiatal hernia repair on?11/30/2023. Presents for 2 month post op visit. Weight today is 268.2 pounds, with a BMI of 44.6. There has been a 86.4 pound weight loss,(initial weight 354.6 pounds) since starting the program on 09/18/2023 reflecting a 24.3 % total body weight loss and a weight loss of 50.1 pounds since surgery (operative weight 318.3 pounds) reflecting a 15.7 % TBWL since surgery. No complaints of nausea, emesis, abdominal pain or reflux. Reports infrequent but normal bowel movements every 2 days. Saw MAGNETOMETER OPERATOR for pelvic mass and scheduled for pelvic MRI 01/03/24. Results of MRI showing a uterine mass possible atypical leiomyoma or a smooth muscle tumor of uncertain malignant potential, referred to pottery decorator Oncology for further management. Appointment scheduled on 01/25 at 08:[address] Castro at [facility] pottery decorator Oncology She states she feels awesome and she wanted to eat something. Present meal plan includes: celebrate 4 in 1 2 shakes, 2 scoops each in 8 oz almond m ilk at 8-10, 11-1 Premier protein RTD 2-4 pm protein bar 5-8 pm, [place] 10 gm Drinking 48 oz water ? Exercise routine includes: gym PF, treadmill and bike, 4 days per week for treadmill and 2 x per week bike. [address] per week. [facility] Medical History Family planning Adult general medical exam control counseling Cervical cancer screening Patient desires Women's annual routine gynecological examination HTN (hypertension) Arthritis GERD (gastroesophageal reflux disease) Morbid obesity Asthma Thrombosed external hemorrhoids Left knee pain Migraines Super-super obese Allergic rhinitis Urticaria Surgical History Hx of laparoscopic partial gastrectomy History of esophagogastroduodenoscopy (EGD) History of wisdom tooth extraction History of placement of ear tubes History of History of cholecystectomy Family History Mother No problems noted. Father No problems noted. Paternal Aunt Breast cancer Social History Household Members: Family Housing: Apartment Are you a primary care manager cna to a significant other at home: Yes Do you presently have visiting nurse or other home services: No Alcohol intake: never Patient Tobacco Use Status: Never used Tobacco e-Cigarette/Vaping Use: Never Used Second Hand Smoke Exposure: No Substance Use Type: Marijuana service: No Current occupational status: unemployed Current occupation: rt handed Cognitive needs: No Hearing needs: No Vision needs: No Female Reproductive History Menstrual Age of Menarche: 15 Physical Exam Vital Signs: BMI result Body Mass Index 44.6 Assessment & Plan Assessment & Plan (1) S/P laparoscopic sleeve gastrectomy: Code(s): Z98.84 - Bariatric surgery status Plan: Change meal plans slightly: celebrate 4 in 1 2 shakes, 2 scoops each in 8 oz almond milk at 8-10, 11-1 Premier protein RTD 2-4 pm meal 5-8 pm, 4 forks of protein (white flushed fish, dark meat chicken, chicken breast, turkey rest), 2 forks cooked vegetables Recommend increase exercise with a goal of burning 400 calories per day, 6 days per week. Return to clinic 1 month. Text with any questions or concerns. Telehealth Telehealth Location of provider rendering services: practice address Location of patient: address on file Patient Identification confirmed using: Name, : Yes Telehealth method: voice only Patient verbally consented to treatment: Yes Patient verbally consented to billing insurance company: Yes Patient informed of any privacy concerns related to visit: Yes Minutes spent on Phone/Video with Pt.: 12 Coding Level of Care Code Global (72551) Diagnoses S/P laparoscopic sleeve gastrectomy Z98.84
[2024-01-23 09:22] VITALS: BMI 44.6
== END 2024-01-23 13:12 | disposition home or self-care (01) ==
LOC: HO.HBS 13:12
PROVIDERS: PCP Internal Medicine; Visit Provider Physician Assistant Surgical
DX: Z98.84 Bariatric surgery status (principal)
CPT/HCPCS: 99024

== ENCOUNTER → 2024-01-23 13:12 | Outpatient (BNVA) | payer OTHER, SELFPAY | PROVIDERS: PCP Internal Medicine; Visit Provider Physician Assistant Surgical | DX: Z48.815 Encounter for surgical aftercare following surgery on the digestive system (principal); Z98.84 Bariatric surgery status | CPT/HCPCS: 99212 ==

== ENCOUNTER 2024-03-01 09:41 | Outpatient (AMB) | payer OTHER, SELFPAY ==
--- NOTE | 2024-03-01 08:09 | A.OFFVIS_ITS ---
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 Presents for 3 month post op visit. Weight today is 248 pounds, with a BMI of 41.3. There has been a 106.6 pound weight loss,(initial weight 354.6 pounds) since starting the program on 09/18/2023 reflecting a 30 % total body weight loss and a weight loss of 70.3 pounds since surgery (operative weight 318.3 pounds) reflecting a 22 % TBWL since surgery. No complaints of nausea, emesis, abdominal pain or reflux. Reports infrequent but normal bowel movements every 2 days. Saw GARAGE CONSTRUCTION EQUIPMENT MECHANIC for pelvic mass and scheduled for pelvic MRI 01/03/24. 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 Appointment was scheduled on 01/25 at 08:[address] Castro at [facility] php magento developer Oncology. Had mass removed on 02/06/24 - leiomyoma, benign. She has been recovering from the surgery and has not been able to go to the gym. She states she feels awesome and she wanted to eat something. Present meal plan includes: celebrate 4 in 1 2 shakes, 2 scoops each in 8 oz almond milk at 8-10, 11-1 Premier protein RTD 2-4 pm meal 5-8 pm, 4 forks of protein (white fleshed fish, dark meat chicken, chicken breast, turkey rest), 2 forks cooked vegetables Drinking 64 oz water ? Exercise routine includes: gym PF, treadmill and bike, 4 days per week for treadmill and 2 x per week bike. 1999 [address] per week. PFSH Medical History Family planning Adult general medical exam control counseling Cervical cancer screening Patient desires Women's annual routine gynecological examination HTN (hypertension) Arthritis GERD (gastroesophageal reflux disease) Morbid obesity Asthma Thrombosed external hemorrhoids Left knee pain Migraines Super-super obese Allergic rhinitis Urticaria Surgical History Hx of laparoscopic partial gastrectomy History of esophagogastroduodenoscopy (EGD) History of wisdom tooth extraction History of placement of ear tubes History of History of cholecystectomy Family History Mother No problems noted. Father No problems noted. Paternal Aunt Breast cancer Social History Household Members: Family Housing: Apartment Are you a primary home health care worker to a significant other at home: Yes Do you presently have visiting nurse or other home services: No Alcohol intake: never Patient Tobacco Use Status: Never used Tobacco e-Cigarette/Vaping Use: Never Used Second Hand Smoke Exposure: No Substance Use Type: Marijuana service: No Current occupational status: unemployed Current occupation: rt handed Cognitive needs: No Hearing needs: No Vision needs: No Female Reproductive History Menstrual Age of Menarche: 15 Telehealth Telehealth Telehealth Platform: Telephone Location of provider rendering services: practice address Location of patient: address on file Patient Identification confirmed using: Name, : Yes Telehealth method: voice only Patient verbally consented to treatment: Yes Patient verbally consented to billing insurance company: Yes Patient informed of any privacy concerns related to visit: Yes Minutes spent on Phone/Video with Pt.: 12 Assessment & Plan Assessment & Plan (1) S/P laparoscopic sleeve gastrectomy: Code(s): Z98.84 - Bariatric surgery status Category: Medical Plan: Patient is doing well overall. She is satisfied with her current meal plan. She recently underwent excision of pelvic mass with pathology showing leiomyoma. This was benign. This was performed at [facility] on 02/06/2024. I have instructed her to begin using the treadmill again, speed of 2.8 with 0 incline until she follows up with director of quality surgery in 2 weeks for clearance to increase incline. She is in agreement with this plan. Her meal plan is satisfactory and will continue we will have her return to the office in 1 month
[2024-03-01 08:12] VITALS: BMI 41.3
== END 2024-03-01 09:58 | disposition home or self-care (01) ==
LOC: HO.HBS 09:41
PROVIDERS: PCP Internal Medicine; Visit Provider Physician Assistant Surgical
DX: E66.01 Morbid (severe) obesity due to excess calories (principal); Z68.41 Body mass index [BMI] 40.0-44.9, adult; Z90.3 Acquired absence of stomach [part of]; Z98.84 Bariatric surgery status
CPT/HCPCS: 99213

== ENCOUNTER → 2024-03-01 09:41 | Outpatient (BNVA) | payer OTHER, SELFPAY | PROVIDERS: PCP Internal Medicine; Visit Provider Physician Assistant Surgical | DX: Z98.84 Bariatric surgery status (principal) ==

== ENCOUNTER 2024-09-12 09:30 | Outpatient (AMB) | payer OTHER, SELFPAY ==
[2024-09-12 09:34] VITALS: BP 112/80; BMI 32.8
--- NOTE | 2024-09-12 09:34 | A.OFFPC_ITS ---
Vital Signs 09/12/24 09:34 Height 5 ft 5 in Weight 197 lb BMI 32.8 BP 112/80 Blood Pressure Location Lt brachial Position Sitting Intake Visit Reasons: Surgery F/U Weakness and tiredness Fire Control Officer Required: No Accompanied by: Self / Same As Patient Allergies pork derived (porcine) Allergy (Intermediate, Verified 09/12/24 10:03) GI ISSUES SEAFOOD Allergy (Severe, Uncoded 09/12/24 10:03) ANAPHYLAXIS Medication List - Last Reconciled 09/12/24 by Lorraine Cat MD albuterol sulfate 90 mcg/actuation (ProAir HFA) 2 puffs inhalation Q6H PRN Tobacco use date assessed: 09/12/24 Dental Screening Dental Screen Date: 09/12/24 Did you have a dental visit in the last 12 months?: No Did you have a dental problem in the last 6 months where you did not have access to dental care?: No Was dental information given to patient?: Patient has dentist HPI HPI Comments History of Present Illness Details The patient is a 34-year-old female presenting with follow-up care after bariatric surgery and hysterectomy. She underwent a gastric sleeve procedure in December of this year as part of her management for obesity. At that time, her weight was 355 pounds, and she has since reduced her weight to 197 pounds, showing significant improvement. During the gastric sleeve procedure, fibroids were discovered in her uterus, prompting a subsequent hysterectomy. The patient reports significant blood loss during the hysterectomy, approximating a quarter of her blood volume, which led to discussions of potential anemia and the need for a blood transfusion. She is currently adjusting to the postoperative changes in her body following these procedures. [facility] Medical History (Updated 09/12/24 @ 10:26 by Lorraine Cat MD) Family planning Adult general medical exam control counseling Cervical cancer screening Patient desires Women's annual routine gynecological examination HTN (hypertension) Arthritis GERD (gastroesophageal reflux disease) Morbid obesity Asthma Thrombosed external hemorrhoids Left knee pain Migraines Super-super obese Allergic rhinitis Urticaria Surgical History (Updated 09/12/24 @ 10:07 by Lorraine Cat MD) H/O: hysterectomy Hx of laparoscopic partial gastrectomy History of esophagogastroduodenoscopy (EGD) History of wisdom tooth extraction History of placement of ear tubes History of History of cholecystectomy Family History Mother No problems noted. Father No problems noted. Paternal Aunt Breast cancer Social History Household Members: Family Housing: Apartment Are you a primary body care manager to a significant other at home: Yes Do you presently have visiting nurse or other home services: No Alcohol intake: never Patient Tobacco Use Status: Never used Tobacco e-Cigarette/Vaping Use: Never Used Second Hand Smoke Exposure: No Substance Use Type: Marijuana service: No Current occupational status: employed Current occupation: rt handed Current occupational exposures/hazards: No Cognitive needs: No Hearing needs: No Vision needs: No Female Reproductive History Menstrual Age of Menarche: 15 Questionnaire PHQ-9 Over the last 2 weeks, how often have you been bothered by any of the following problems? 1. Little interest or pleasure in doing things: several days 2. Feeling down, depressed, or hopeless: several days 3. Trouble falling or staying asleep, or sleeping too much: not at all 4. Feeling tired or having little energy: nearly every day 5. Poor appetite or overeating: not at all 6. Feeling bad about yourself - or that you are a failure or have let yourself or your family down: not at all 7. Trouble concentrating on things, such as reading the newspaper or watching television: not at all 8. Moving or speaking so slowly that other people could have noticed. Or the opposite - being so fidgety or restless that you have been moving around a lot more than usual: not at all 9. Thoughts that you would be better off or of hurting yourself in some way: not at all Total score: 5 Depression Screening Interpretation: Positive Depression Screening Follow-up: Existing condition and Follow-up Visit Requested Depression Screening Done: Yes 68640 - PHQ-9 Billing: Yes Source: Developed by Drs. Miguel Crump, Doris Del Rosario, Luc Hernandez and colleagues, with an educational brittany from [employer]. Thrive Questionnaire Date Thrive assessed: 09/12/24 I am a: Patient What is your living situation today?: I have a steady place to live Within the past 12 months, did the food you bought not last and you didn't have the money to get more?: Never true Within the past 12 months, did you worry whether your food would run out before you got money to buy more?: Never true Do you have trouble paying for medicines?: No Do you have trouble getting transportation to medical appointments?: No Do you have trouble paying your heating and electricity bill?: No Do you have trouble taking care of your child, family member or friend?: No Do you have trouble with day-to-day activities such as bathing, preparing meals, shopping, managing finances, etc.?: No Are you currently unemployed and looking for a job?: No Are you interested in more education?: No Please select the resources that you would like help with: None Currently or been in a relationship where the following occur: No concerns reported THRIVE Score: 0 AUDIT C Alcohol Use Questionnaire (AUDIT-C) 1. How often do you have a drink containing alcohol?: Never Total Score: 0 Score Reviewed/Action Taken: No YOANA-7 AMB Questionnaire YOANA-7 Date YOANA - 7 assessed: 09/12/24 Feeling nervous, anxious, or on edge: 1 = Several days Not being able to stop or control worryin = Not at all Worrying too much about different things: 1 = Several days Trouble relaxin = Several days Being so restless that it is hard to sit still: 1 = Several days Becoming easily annoyed or irritable: 2 = More than half the days Feeling afraid as if something awful might happen: 0 = Not at all Total YOANA-7 score (0-4 normal; 5-9 mild; 10-14 moderate; 15-21 severe): 6 Source: Developed by Drs. Miguel Crump, Doris Del Rosraio, Luc Hernandez and colleagues, with an educational brittany from [employer]. YOANA-7 Assessment Billing YOANA-7 Assessment Tool: YOANA-7 Assessment 17612 Review of Systems Const All systems reviewed & are unremarkable except as noted in HPI and below Reports fatigue and Reports lethargy Card Denies chest pain at rest, Denies chest pain with activity, Denies edema, Denies irregular heart rhythm, Denies claudication, Denies dyspnea, Denies dyspnea on exertion, Denies orthopnea, Denies paroxysmal nocturnal dyspnea and Denies slow heart rate Resp Denies cough, Denies dyspnea and Denies dyspnea on exertion GI Denies abdominal pain, Denies change in bowel habits, Denies excessive flatus, Denies nausea and Denies vomiting Denies urinary incontinence, Denies urinary hesitancy and Denies urinary urgency Musc Denies abnormal gait, Denies atrophy, Denies deformity and Denies limited range of motion Skin/Breast Denies bleeding lesions, Denies changing lesions and Denies rash Neuro Denies abnormal gait, Denies behavioral changes and Denies lack of coordination Psych Denies behavioral changes Endo Reports fatigue Physical exam (Primary Care) Vital Signs: Last Vital Signs BP 112/80 09/12/24 09:34 BMI result Body Mass Index 32.8 BMI Assessment/Plan discussion: High BMI High, discussed plan: lifestyle, weight reduction, dietary and physical activity Tobacco/Smoking Status: Tobacco use Status Tobacco use date assessed 09/12/24 09/12/24 09:42 Patient Tobacco Use Status Never used Tobacco 09/12/24 09:42 e-Cigarette/Vaping Use Never Used 09/12/24 09:42 PHQ-9: PHQ-9 Score PHQ-9: Total score 5 09/12/24 10:30 Depression Screening Interpretation: Positive Depression Screening Follow-up: Existing condition and Follow-up Visit Requested Thrive Assessment: Date of Thrive Assessment Date Thrive assessed 09/12/24 09/12/24 09:42 Currently or been in a relationship where the following occur: No concerns reported Resp Effort & Inspection: normal respiratory effort Auscultation: clear to auscultation bilaterally Cardio Jugular venous distension: no JVD Rate: regular rate Rhythm: regular rhythm Heart sounds: S1 normal heart sound present and S2 normal heart sound present Extrem General: Yes full ROM Office Procedures Flu Questionnaire Does the patient have a severe egg allergy?: No Immunizations Fluarix Triv [id number] (PF) 45 mcg (15 mcg x 3)/0.5 mL IM syringe Performing Provider: Lorraine Cat MD [facility] Documented (not given) by: LAMAR James on 09/12/24 10:30 Reason Not Given: Not Given Coding Level of Care Code Est Pt Level 3 (21264) Complex EM visit Add On G2211 Diagnoses Class 1 obesity with body mass index (BMI) of 32.0 to 32.9 in adult E66.811; Z68.32 Fatigue R53.83 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 Additional Codes YOANA-7 Assessment Billing - YOANA-7 Assessment Tool: YOANA-7 Assessment 11326 ([id number]) PHQ-9 - 98344 - PHQ-9 Billing: Yes ([id number]) Time Spent (min) 19 Assessment & Plan Assessment & Plan (1) Class 1 obesity with body mass index (BMI) of 32.0 to 32.9 in adult: Code(s): E66.811 - Obesity, class 1; Z68.32 - Body mass index [BMI] 32.0-32.9, adult Category: Medical (2) Fatigue: Code(s): R53.83 - Other fatigue Category: Medical (3) Iron deficiency anemia secondary to blood loss (chronic): Code(s): D50.0 - Iron deficiency anemia secondary to blood loss (chronic) Category: Medical Plan - Obesity: Continue monitoring weight and nutritional intake, encourage continuation of lifestyle changes post-bariatric surgery. - Status post hysterectomy: Monitor for any complications related to the procedure and evaluate recovery. - Anemia: Check hemoglobin levels and assess vitamin levels to address fatigue and potential anemia. Consider further management based on lab results. - Maintain a scheduled physical exam on September 23 to further discuss non- urgent issues. Patient was informed and verbally consented to the use of an ambient scribe for clinic note documentation during this visit. I reviewed with the patient the progress following her gastric sleeve surgery, including her significant weight loss success. We discussed the hysterectomy and the noted blood loss during the procedure. I acknowledged her concerns about fatigue and potential anemia, and I explained the importance of monitoring her hemoglobin and vitamin levels. The patient was informed of the non-urgent issues that could be addressed during her upcoming physical examination. The risks and benefits of potential interventions, such as a blood transfusion, were briefly outlined, alongside the importance of maintaining regular follow-ups to monitor her health adjustments post-surgery. Orders: Orders Complete Blood Count Auto Diff Today D64.9 - Anemia, unspecified Comprehensive [place]. Panel Fast Today R53.83 - Other fatigue Vitamin A Today Z98.84 - Bariatric surgery status Vitamin B1 Today Z98.84 - Bariatric surgery status Influenza [id number] Immunization Today Z23 - Encounter for immunization IRON PROFILE Today D64.9 - Anemia, unspecified Vitamin D 25-OH Total Today E55.9 - Vitamin D deficiency, unspecified Vitamin B12 and Folate Today E53.8 - Deficiency of other specified B group vitamins Lipid Panel Today E78.5 - Hyperlipidemia, unspecified Thyroid Stimulating Hormone Today R53.83 - Other fatigue Patient Instructions: - Continue to maintain nutritional and lifestyle adjustments post bariatric surgery. - Keep the physical exam appointment on September 23 for further evaluation and discussion. - Report any new or worsening symptoms such as excessive fatigue or dizziness to the healthcare facility. - Be attentive to overall well-being and comply with any prescribed follow-ups or laboratory work to assess hemoglobin and vitamin levels.
== END 2024-09-12 10:09 | disposition home or self-care (01) ==
PROVIDERS: PCP Internal Medicine; Visit Provider Internal Medicine
DX: E66.811 Obesity, class 1 (principal); Z68.32 Body mass index [BMI] 32.0-32.9, adult; R53.83 Other fatigue; D50.0 Iron deficiency anemia secondary to blood loss (chronic); Z23 Encounter for immunization

== ENCOUNTER → 2024-09-12 09:30 | Outpatient (BNVA) | payer OTHER, SELFPAY | PROVIDERS: PCP Internal Medicine; Visit Provider Internal Medicine | DX: E66.811 Obesity, class 1 (principal); Z68.32 Body mass index [BMI] 32.0-32.9, adult; R53.83 Other fatigue; D50.0 Iron deficiency anemia secondary to blood loss (chronic); Z71.3 Dietary counseling and surveillance | CPT/HCPCS: 90471; 96127; 99212 ==

== ENCOUNTER 2024-11-20 08:41 | Outpatient (REF) | payer OTHER, SELFPAY ==
[2024-11-20 09:12] LABS: MANUAL DIFF FLAG NO
[2024-11-20 09:30] LABS: Basophils Percent Auto 0.5 % (0-2); Eosinophils Absolute Auto 0.1 X10*3/uL (0.0-0.4); Eosinophils Percent Auto 1.1 % (0-4); Hematocrit 38.1 % (37.0-47.0); Hemoglobin 12.8 g/dl (12.0-16.0); Imm Gran Abs Auto 0.01 X10*3/uL (0.00-0.03); Imm Gran Pct Auto 0.2 % (0.0-0.4); Lymphocytes Absolute Auto 2.9 X10*3/uL (1.2-4.9); Lymphocytes Percent Auto 51.4 % (20-40); Mean Corpuscular HGB Conc 33.6 g/dl (31.0-35.0); Mean Corpuscular Hemoglobin 32.1 pg (27.0-33.0); Mean Corpuscular Volume 95.5 fL (80.0-98.0); Mean Platelet Volume 9.7 fL (9.4-12.3); Monocytes Absolute Auto 0.3 X10*3/uL (0.1-1.2); Monocytes Percent Auto 5.8 % (2-11); Neutrophils Absolute Auto 2.3 x10*3/uL (2.0-8.3); Platelet Count 213 X10*3/uL (160-400); Red Blood Count 3.99 X10*6/uL (4.20-5.50); Red Cell Distribution Width 13.4 % (11.0-16.0); White Blood Count 5.6 X10*3/uL (4.8-10.8)
--- OUTSIDE RECORDS SUMMARY | 2024-11-20 09:36 | XMS_ITS | Clinical Summary ---
Author Organization [facility] Address [address] [place] [id number] Phone Care Team Providers Care Automobile Mechanic Helper Name Role Phone Unavailable Primary Care Provider Unavailabl e Immunizations Immunization Administration Dates Next Due DTP 04/25/1996, 3,09/01/1992,02/05,1991 HPV, Quadrivalent 03/07/2007 Hep B, ped/adol 02/05/1996,08/15/1995,07/06/1995 Hib (PRP-T) 12/29/1992, 2,02/06/1992,10/21 IPV 12/29/1992 MMR 04/25/1996,12/29/1992 Meningococcal Conj (Menactra) MCV4P 02/28/2006 OPV 04/25/1996,02/06/1992,1991 Td (adult) (MBL), 2 Lf tetan us toxoid, PF, adsorbed 02/11/2002 Family History Relation Name Status Comments Brother Alive Brother: ADD/AD HD, Alive and well, ADD/ADHD, ADD/ADHD Father Father: Depress ion, Obesity Mother Alive Mother: Migrain es, Depression, Post tramatic stress dissorder Other Family history of Asthma, Family history of Diabetes mellitus Social History Tobacco Use Types Packs/Day Years Used Date Smoking Tobacco: Never Assessed Comments Unknown Sex and Gender Information Value Date Recorded Sex Assigned at Not on file Legal Sex Female 4:26 PM EDT Gender Identity Not on file Sexual Orientation Not on file Plan of Treatment Health Maintenance Due Date Last Done Comments DTaP,Tdap,and Td Vaccines (6 - Tdap) 2002 02/11/2002, 04/25/1996, 07/30/1993, Additional history exists Varicella Vaccines (1 of 2 - 13+ 2-dose series) 2004 HPV Vaccines (2 - 3-dose series) 04/04/2007 03/07/2007 Influenza Vaccines (#1) 2024 COVID-19 Vaccine (2023- season) 2024 HIB Vaccines Completed 12/29/1992, 08/10, 02/06/1992, Additional history exists Hepatitis B Vaccines Completed 02/05/1996, 08/15/1995, 07/06/1995 IPV Vaccines Completed 04/25/1996, 12/08, 02/06/1992, Additional history exists MMR Vaccines Completed 04/25/1996, 12/29/1992 Meningococcal Vaccine Aged Out 02/28/2006 No jayson luis daniel eligible based on patient's age to complete this topic Hepatitis A Vaccines Aged Out No long er eligible based on patient's age to complete this topic Men B Vaccine Aged Out No longer elig ible based on patient's age to complete this topic Pneumococcal Vaccine Aged Out No long er eligible based on patient's age to complete this topic
--- OUTSIDE RECORDS SUMMARY | 2024-11-20 09:36 | XMS_ITS | Encounter Summary ---
Author Organization [facility] Address [address] [place] [address] Phone Care Team Providers Care Webfocus Developer Name Role Phone Debbie De Leon NP Primary Care Provider Sheba edgar Encounter Details Date Type Department Care Team (Late st Contact Info) Description 05/25/2017 Conversion Encounter [facility] - [address] [id number] Social History Tobacco Use Types Packs/Day Years Used Date Smoking Tobacco: Never Assessed Comments Unknown Sex and Gender Information Value Date Recorded Sex Assigned at Not on file Legal Sex Female 4:26 PM EDT Gender Identity Not on file Sexual Orientation Not on file documented as of this encounter Plan of Treatment Not on file documented as of this encounter Visit Diagnoses Not on filedocumented in this encounter Care Teams Webfocus Developer Relationship Specialty Start Date End Date Debbie De Leon NP PCP - General 05/19/17 01/19/23 documented as of this encounter
[2024-11-20 10:10] LABS: Alanine Aminotransferase 12 U/L (0-31); Albumin Level 4.4 g/dL (3.5-5.0); Alkaline Phosphatase 49 U/L (39-117); Anion Gap 12 (12-20); Aspartate Amino Transferase 16 U/L (5-31); Bilirubin Total 0.6 mg/dL (0.0-1.0); Blood Urea Nitrogen 7 mg/dL (9-16); Calcium 9.1 mg/dL (8.4-10.2); Carbon Dioxide 24 mmol/L (22-29); Chloride 108 mmol/L (96-108); Cholesterol 136 mg/dL (<200); Estimated Glomerular Filt Rate > 60; Glucose Fasting 85 mg/dL (60-99); HDL Cholesterol 57 mg/dL (>40); Iron 68 mcg/dL (30-160); LDL Cholesterol Calculated 68 mg/dL (<100); Percent Iron Saturation 23 % (15-50); Potassium 3.9 mmol/L (3.3-5.1); Sodium 140 mmol/L (135-145); Total Iron Binding Capacity 295 mcg/dL (228-428); Total Protein 7.4 g/dL (6.5-8.0); Triglycerides 56 mg/dL (<150); Unsaturated Iron Binding 227 ug/dL
[2024-11-20 10:32] LABS: Thyroid Stimulating Hormone 1.99 uIU/mL (0.32-4.0); Vitamin D 25-OH Total 12.7 ng/mL (>30)
[2024-11-20 10:37] LABS: Folate 9.8 ng/mL (> or = 4.0); Vitamin B12 357 pg/mL (200-900)
[2024-11-23 18:58] LABS: Vitamin A 36 mcg/dL (38-98)
[2024-11-29 13:49] LABS: Vitamin B1 12 nmol/L (8-30)
== END 2024-11-20 08:42 | disposition home or self-care (01) ==
LOC: HO.LAB 08:41
PROVIDERS: PCP Internal Medicine; Visit Provider Internal Medicine
DX: D64.9 Anemia, unspecified (principal); Z98.84 Bariatric surgery status; E55.9 Vitamin D deficiency, unspecified; R53.83 Other fatigue; E53.8 Deficiency of other specified B group vitamins; E78.5 Hyperlipidemia, unspecified
CPT/HCPCS: 36415; 80053; 80061; 82306; 82607; 82746; 83540; 84425; 84443; 84590; 85025

== ENCOUNTER 2025-05-12 08:23 | Outpatient (AMB) | payer OTHER, SELFPAY ==
--- NOTE | 2025-05-12 08:32 | A.OFFVIS_ITS ---
Vital Signs 05/12/25 08:41 Height 5 ft 5 in Weight 189 lb BMI 31.4 BP 111/65 Blood Pressure Location Rt brachial Position Sitting Pulse 66 Intake Visit Reasons: Perianal venous thrombosis Intake Note: Patient referred by pcp Dr. Barry Cat for evaluation and treatment of hemorrhoids. Patient c/o: feels discomfort with BM. Some improvement with Lipomal OTC cream. ON and off constipation. Reports hx of gastric bypass surgery December 2023. Photographer Finish Required: No Accompanied by: Self / Same As Patient Allergies pork derived (porcine) Allergy (Intermediate, Verified 05/12/25 08:40) GI ISSUES SEAFOOD Allergy (Severe, Uncoded 05/12/25 08:40) ANAPHYLAXIS Medication List - Last Reconciled 05/12/25 by Kyle Donohue MD albuterol sulfate 90 mcg/actuation (ProAir HFA) 2 puffs inhalation Q6H PRN cholecalciferol (vitamin D3) 50 mcg PO DAILY 90 days HPI HPI Perianal venous thrombosis: Details: 34-year-old female referred for presumed hemorrhoid issues. The patient says her about 2-3 years now, she thinks that she has had hemorrhoids. She says that this really did not bother her. However starting about 7 months ago, she had noticed some significant pain with passage of stools. She has describes this has severe pain like a ?knife? cutting her anus. She would notice occasional small amounts of blood as well This has been ongoing for the past 6 or 7 months. She says that having bowel movements is extremely painful for her. She denies having problems with the constipation. [facility] Medical History (Updated 05/12/25 @ 09:09 by Kyle Donohue MD) Chronic anal fissure Family planning Adult general medical exam control counseling Cervical cancer screening Patient desires Women's annual routine gynecological examination HTN (hypertension) Arthritis GERD (gastroesophageal reflux disease) Morbid obesity Asthma Thrombosed external hemorrhoids Left knee pain Migraines Super-super obese Allergic rhinitis Urticaria Surgical History H/O: hysterectomy Hx of laparoscopic partial gastrectomy History of esophagogastroduodenoscopy (EGD) History of wisdom tooth extraction History of placement of ear tubes History of History of cholecystectomy Family History Mother No problems noted. Father No problems noted. Paternal Aunt Breast cancer Social History Household Members: Family Housing: Apartment Are you a primary cardiac care nurse to a significant other at home: Yes Do you presently have visiting nurse or other home services: No Alcohol intake: never Patient Tobacco Use Status: Never used Tobacco e-Cigarette/Vaping Use: Never Used Second Hand Smoke Exposure: No Substance Use Type: Marijuana service: No Current occupational status: employed Current occupation: rt handed Current occupational exposures/hazards: No Cognitive needs: No Hearing needs: No Vision needs: No Female Reproductive History Menstrual Age of Menarche: 15 Review of Systems Const Denies chills and Denies fever(s) Card Denies chest pain, Denies dyspnea and Denies dyspnea on exertion Resp Denies cough, Denies dyspnea and Denies dyspnea on exertion GI Reports hematochezia and Denies change in bowel habits Denies hematuria Musc Denies back pain and Denies limited range of motion Neuro Denies focal weakness and Denies convulsions Psych Denies depression and Denies mood swings Physical Exam Vital Signs: Last Vital Signs Pulse 66 05/12/25 08:41 BP 111/65 05/12/25 08:41 BMI result Body Mass Index 31.4 Const General: comfortable and no acute distress Orientation/consciousness: patient oriented x3 Neck Neck: Yes no lymphadenopathy Resp Auscultation: clear to auscultation bilaterally Cardio Rhythm: regular rhythm GI Other: Rectal exam shows non bulky external hemorrhoids which are nontender. However in the posterior midline, there is note of an anal fissure at the distal anoderm. This is extremely tender and painful. This seems to be deep as well; anoscopy was not done in view of her significant discomfort Palpation (GI): Soft to palpation, nontender and no guarding Neuro General: patient oriented x3 Assessment & Plan Assessment & Plan (1) Chronic anal fissure: Code(s): K60.1 - Chronic anal fissure Category: Medical Plan: Overall clinical picture physical exam is consistent with a chronic anal fissure in the posterior midline. I explained to her that the hemorrhoids did not seem to be the problem with regards to her current issues I explained the option of chemical sphincterotomy with nifedipine or nitroglycerin but I explained to her that this is unlikely to be effective in view of her chronic symptoms. I also explained the technique of exam under anesthesia with lateral internal sphincterotomy for a more lasting relief of her symptoms. I reviewed the risks including but not limited to bleeding, infections, her dysfunction, as well as the benefits and alternatives. I explained to her what to expect postoperatively She wants to proceed with exam under anesthesia and lateral internal sphincterotomy in view of her her pain with bowel movements. Coding Level of Care Code New Pt Level 3 (18479) Diagnoses Chronic anal fissure K60.1
--- OUTSIDE RECORDS SUMMARY | 2025-05-12 08:39 | XMS_ITS | Clinical Summary ---
Author Organization [facility] Address [address] [place] [id number] Phone Care Team Providers Care Head Host/Hostess Name Role Phone Unavailable Primary Care Provider [...] Vaccines (2 - 3-dose series) 04/04/2007 03/07/2007 COVID-19 Vaccine ( season) 2024 Influenza Vaccines (#1) 2025 HIB Vaccines Completed 12/29/1992, 08/10, 02/06/1992, Additional [...]
[2025-05-12 08:41] VITALS: BP 111/65; PULSE 66; BMI 31.4
== END 2025-05-12 09:08 | disposition home or self-care (01) ==
PROVIDERS: PCP Internal Medicine; Visit Provider Surgery
DX: K60.1 Chronic anal fissure (principal)
CPT/HCPCS: 99203

== ENCOUNTER → 2025-05-12 08:23 | Outpatient (BNVA) | payer OTHER, SELFPAY | PROVIDERS: PCP Internal Medicine; Visit Provider Surgery | DX: K60.1 Chronic anal fissure (principal) | CPT/HCPCS: 99202 ==

== ENCOUNTER 2025-05-22 08:26 | Day surgery (SDC) | payer OTHER, SELFPAY ==
--- OUTSIDE RECORDS SUMMARY | 2025-05-13 11:41 | XMS_ITS | Clinical Summary ---
Author Organization [facility] Address [address] [place] [id number] Phone Care Team Providers Care Tip Cutter Name Role Phone Unavailable Primary Care Provider [...]
[2025-05-20 07:58] VITALS: BMI 31.4
--- NOTE | 2025-05-21 08:57 | HO.ANESPROP2 ---
Documented by User: Lashaun Nascimento NP 05/21/25 08:57 HPI - Anesthesia Eval Consult details Narrative: 34yo F for EUA,Lateral Internal Sphincterotomy PMFSH Active Problems Active Problems: All Active Problems Chronic anal fissure (Acute) Iron deficiency anemia secondary to blood loss (chronic) (Acute) Class 1 obesity with body mass index (BMI) of 32.0 to 32.9 in adult (Acute) Fatigue (Acute) Family planning (Acute) Uterine myoma (Acute) Congenital intra-abdominal adhesions (Acute) Intra-abdominal adhesions (Acute) Pelvic mass (Acute) S/P laparoscopic sleeve gastrectomy (Acute) Anxiety (Acute) Asthma (Acute) Adjustment disorder, unspecified (Acute) Hair loss (Acute) Vitamin A deficiency (Acute) Bulky or enlarged uterus (Acute) External hemorrhoids (Acute) Osteoarthritis of left knee (Acute) Right knee pain (Acute) GERD (gastroesophageal reflux disease) (Acute) Thrombosed external hemorrhoids (Acute) Left knee pain (Acute) Migraines (Acute) Allergic rhinitis (Acute) Past Medical History Medical History Chronic anal fissure Family planning Adult general medical exam control counseling Cervical cancer screening Patient desires Women's annual routine gynecological examination HTN (hypertension) Arthritis GERD (gastroesophageal reflux disease) Morbid obesity Asthma Thrombosed external hemorrhoids Left knee pain Migraines Super-super obese Allergic rhinitis Urticaria Family History Family History Mother No problems noted. Father No problems noted. Paternal Aunt Breast cancer Family history of problems with anesthesia: No Surgical History Surgical History H/O: hysterectomy Hx of laparoscopic partial gastrectomy History of esophagogastroduodenoscopy (EGD) History of wisdom tooth extraction History of placement of ear tubes History of History of cholecystectomy History of Problems with Anesthesia: No Social History Social History Household Members: Family Housing: Apartment Are you a primary wound care physician to a significant other at home: Yes Do you presently have visiting nurse or other home services: No Alcohol intake: never Patient Tobacco Use Status: Never used Tobacco e-Cigarette/Vaping Use: Never Used Second Hand Smoke Exposure: No Use of substances other than those prescribed or required for medical reasons: Yes Substance Use Type: Marijuana Advance Directives: No Advance Directives Information Provided: Yes service: No Current occupational status: employed Current occupation: rt handed Current occupational exposures/hazards: No Cognitive needs: No Hearing needs: No Vision needs: No Meds Allergies Allergy/AdvReac Type Severity Reaction Status Date / Time pork derived (porcine) Allergy Intermediate GI ISSUES Verified 05/12/25 08:40 SEAFOOD Allergy Severe ANAPHYLAXIS Uncoded 05/12/25 08:40 Home Medications ?Medication ?Instructions ?Recorded ?Confirmed ?Last Taken ?Type albuterol sulfate 90 mcg/actuation 2 puff inhalation Q6H PRN 09/18/23 05/12/25 Unknown History aerosol inhaler (ProAir HFA) Shortness Of Breath Exam Height,Weight and Vital Signs: Height 5 ft 5 in Weight 85.729 kg Pertinent Lab Results Pertinent Lab Results: Laboratory Tests 11/20/24 09:11 WBC 5.6 Hgb 12.8 Hct 38.1 Plt Count 213 Sodium 140 Potassium 3.9 Chloride 108 Carbon Dioxide 24 BUN 7 L Creatinine 0.71 Assessment and Plan Assessment Anesthesia Assessment: Chart Reviewed Final Anesthetic Review Family History of Problems with Anesthesia: No History of Problems with Anesthesia: No Documented by User: Josias Kirkpatrick MD 05/22/25 09:46 PMFSH Past Medical History Medical History Chronic anal fissure Family planning Adult general medical exam control counseling Cervical cancer screening Patient desires Women's annual routine gynecological examination HTN (hypertension) Arthritis GERD (gastroesophageal reflux disease) Morbid obesity Asthma Thrombosed external hemorrhoids Left knee pain Migraines Super-super obese Allergic rhinitis Urticaria Functional capacity: independent ambulation Family History Family History Mother No problems noted. Father No problems noted. Paternal Aunt Breast cancer Surgical History Surgical History H/O: hysterectomy Hx of laparoscopic partial gastrectomy History of esophagogastroduodenoscopy (EGD) History of wisdom tooth extraction History of placement of ear tubes History of History of cholecystectomy Social History Social History Household Members: Family Housing: Apartment Are you a primary wound care physician to a significant other at home: Yes Do you presently have visiting nurse or other home services: No Alcohol intake: never Patient Tobacco Use Status: Never used Tobacco e-Cigarette/Vaping Use: Never Used Second Hand Smoke Exposure: No Use of substances other than those prescribed or required for medical reasons: Yes Substance Use Type: Marijuana Advance Directives: No Advance Directives Information Provided: Yes service: No Current occupational status: employed Current occupation: rt handed Current occupational exposures/hazards: No Cognitive needs: No Hearing needs: No Vision needs: No Meds Allergies Allergy/AdvReac Type Severity Reaction Status Date / Time pork derived (porcine) Allergy Intermediate GI ISSUES Verified 05/12/25 08:40 SEAFOOD Allergy Severe ANAPHYLAXIS Uncoded 05/12/25 08:40 Home Medications ?Medication ?Instructions ?Recorded ?Confirmed ?Last Taken ?Type albuterol sulfate 90 mcg/actuation 2 puff inhalation Q6H PRN 09/18/23 05/12/25 Unknown History aerosol inhaler (ProAir HFA) Shortness Of Breath Exam Exam Date and Time: 05/22/2025 Airway TM Dist: >3cm Neck ROM: Full Loose/Missing/Broken Teeth: No Heart: rrr Lungs: cts Assessment and Plan Assessment Anesthesia Assessment: Anesthesia Plan Discussed Final Anesthetic Review NPO: Yes ASA Class: II Final Preanesthetic Review: No Changes in Pt Med Stat, Meds/Allgs Chart Reviewed, Consent Obtained/Reviewed and Anes Risks/Benef Reviewed Patient Risk: Low Procedure Risk: Low Anesthetic Plan Anesthetic Plan: GA Disposition: Standard PACU
[2025-05-22] VITALS (8 sets, daily range): BP systolic 99–108; BP diastolic 46–61; PULSE 50–63; RESP 12–16; TEMP 36.1–37.2; O2SAT 95–100; BMI 32.1
[2025-05-22] MEDS: Lactated Ringers 1,000 ML 100 ML IVCONT (08:59)
--- NOTE | 2025-05-22 10:49 | MHC.SHP ---
Pre-Procedural Eval Section A - 24 Hr Update-Section A only Date of Service: 05/22/25 The patient is an INPATIENT: No Changes since office visit: No Cold of Flu in the past 2 weeks, No New Medical Problems, No Changes in Medication and No Patient answered all questions The patient has been examined within 24 hours of the surgical procedure. The History & Physical has been completed within 30 days and I have reviewed it.: Yes Section B - Complete if H&P > 30 days Chief Complaint: Chronic anal fissure Allergies: Allergies Allergy/AdvReac Type Severity Reaction Status Date / Time pork derived (porcine) Allergy Intermediate GI ISSUES Verified 05/12/25 08:40 SEAFOOD Allergy Severe ANAPHYLAXIS Uncoded 05/12/25 08:40 Plan I have reviewed the history and physical and performed a pertinent physical examination on my patient. No changes have occurred unless specified. Time Spent With Patient Time: Total time managing care of this patient today ____ minutes.
[2025-05-22] MEDS: cefoTEtan disodium 2 GM VIAL IVPUSH (11:00)
--- NOTE | 2025-05-22 11:27 | P.OP_ITS ---
Operative Note Operative Note Date of Service: 05/22/25 Narrative: Preop diagnosis: Chronic anal fissure Postop diagnosis: The same Procedure: exam under anesthesia, left lateral internal sphincterotomy Surgeon: Kyle Donohue MD Central Supply Supervisor:ROJELIO Umanzor The patient is a 34-year-old female seen by me in the office because of the pain with bowel movements. Examination showed a posterior midline fissure. This appeared to be a chronic fissure . She wanted to proceed with lateral internal sphincterotomy. She understood the technique of the planned procedure as well as the risks, benefits, and alternatives. She was brought to the operating room. She was placed in prone jason-knife position under general anesthesia via endotracheal tube. The buttocks were retracted with wide tape laterally. The perianal area was prepped and draped in the usual sterile fashion. A surgical time-out was done. The patient received Cefotan 2 g IV preoperatively Retraction of the anal canal showed this deep posterior midline fissure which appeared to be a chronic fissure. The sphincter fibers appeared visible I inserted the Rosa Olson retractor. I examined the anal canal circumferentially. There were no other lesions seen. She did have some small prominent hemorrhoidal columns I proceeded to identify the intersphincteric groove by palpation. I made an incision on the anal verge along this intersphincteric groove after infiltration with lidocaine 1% using blade 15. I then used blunt dissection with a fine hemostat to identify the internal sphincter and the intersphincteric plane. I positioned the hemostat in the intersphincteric plane to protect the internal sphincter. I divided the internal sphincter fibers with electrocautery down to the level of the dentate line I then proceeded to close the incision with the running chromic 3-0 stitch. He mostasis was confirmed. I cauterized the posterior midline fissure as well I infiltrated the perianal area with Marcaine 0.5% for postop analgesia. Dressings were applied and the procedure was completed. The patient tolerated procedure well. There were no immediate complications. Estimated blood loss was about 10 cc The patient was extubated without difficulty and transferred to the recovery room with stable vital signs.
== END 2025-05-22 13:03 | disposition home or self-care (01) ==
PROVIDERS: PCP Internal Medicine; Visit Provider Surgery
PROC: (CPT 46080; principal; 2025-05-22 12:10)
DX: K60.1 Chronic anal fissure (principal); K64.5 Perianal venous thrombosis; I10 Essential (primary) hypertension; J45.909 Unspecified asthma, uncomplicated; G43.909 Migraine, unspecified, not intractable, without status migrainosus; L50.9 Urticaria, unspecified; Z98.84 Bariatric surgery status; Z91.014 Allergy to mammalian meats; Z91.013 Allergy to seafood; Z98.890 Other specified postprocedural states
CPT/HCPCS: 46080; J0131; J1100; J1885; J2003; J2250; J2405; J2704; J2795; J3010

== ENCOUNTER → 2025-05-22 08:26 | Outpatient (BNV) | payer OTHER, SELFPAY | PROVIDERS: PCP Internal Medicine; Visit Provider Surgery | DX: K60.1 Chronic anal fissure (principal) | CPT/HCPCS: 46080 ==

== ENCOUNTER 2025-06-04 10:52 | Outpatient (AMB) | payer OTHER, SELFPAY ==
--- NOTE | 2025-06-04 10:54 | MHC.OFFVIS ---
Vital Signs 06/04/25 10:57 Weight 189 lb BP 125/81 Blood Pressure Location Rt brachial Position Sitting Pulse 80 Intake Visit Reasons: S/P lateral internal sphincterotomy Intake Note: Patient here s/p left lateral internal sphincterotomy. Patient c/o: reports site healing well. Normal BM. Denies pain, diarrhea, constipation. Surgery: 05-22-2025 Division Supervisor Required: No Accompanied by: Self / Same As Patient Allergies pork derived (porcine) Allergy (Intermediate, Verified 06/04/25 10:58) GI ISSUES SEAFOOD Allergy (Severe, Uncoded 06/04/25 10:58) ANAPHYLAXIS HPI HPI S/P lateral internal sphincterotomy: Details: She underwent lateral internal sphincterotomy for chronic anal fissure last May 22, 2025. She tolerated procedure well. She says she feels much better. She says that she no longer has significant pain with passage of stools. She says she is able to sit down comfortably. She is happy with the outcome so far. [facility] Medical History Chronic anal fissure Family planning Adult general medical exam control counseling Cervical cancer screening Patient desires Women's annual routine gynecological examination HTN (hypertension) Arthritis GERD (gastroesophageal reflux disease) Morbid obesity Asthma Thrombosed external hemorrhoids Left knee pain Migraines Super-super obese Allergic rhinitis Urticaria Surgical History History of rectal sphincterotomy (05/22/25) H/O: hysterectomy Hx of laparoscopic partial gastrectomy History of esophagogastroduodenoscopy (EGD) History of wisdom tooth extraction History of placement of ear tubes History of History of cholecystectomy Family History Mother No problems noted. Father No problems noted. Paternal Aunt Breast cancer Social History Household Members: Family Housing: Apartment Are you a primary palliative care nurse to a significant other at home: Yes Do you presently have visiting nurse or other home services: No Alcohol intake: never Patient Tobacco Use Status: Never used Tobacco e-Cigarette/Vaping Use: Never Used Second Hand Smoke Exposure: No Substance Use Type: Marijuana service: No Current occupational status: employed Current occupation: rt handed Current occupational exposures/hazards: No Cognitive needs: No Hearing needs: No Vision needs: No Female Reproductive History Menstrual Age of Menarche: 15 Review of Systems Const Denies chills and Denies fever(s) Physical Exam Vital Signs: Last Vital Signs Pulse 80 06/04/25 10:57 BP 125/81 06/04/25 10:57 Const General: comfortable and no acute distress Resp Effort & Inspection: normal respiratory effort GI Other: Rectal exam shows the sphincterotomy site to be well healed with a any signs of infection, no bleeding, no skin changes or induration Assessment & Plan Assessment & Plan (1) Chronic anal fissure: Code(s): K60.1 - Chronic anal fissure Category: Medical Plan: Status post lateral internal sphincterotomy. She is doing very well. The surgical site is well healed. I advised her on avoiding constipation down the line. She can otherwise follow up on a p.r.n. basis. She is very happy with the outcome. Coding Level of Care Code Global (30940) Diagnoses Chronic anal fissure K60.1
[2025-06-04 10:57] VITALS: BP 125/81; PULSE 80
--- OUTSIDE RECORDS SUMMARY | 2025-06-04 11:46 | XMS_ITS | Clinical Summary ---
Author Organization [facility] Address [address] [place] [phone] Phone Care Team Providers Care Solutions Executive Cloud Sales Name Role Phone Unavailable Primary Care Provider [...]
--- OUTSIDE RECORDS SUMMARY | 2025-06-04 11:47 | XMS_ITS | Encounter Summary ---
Author Organization [facility] Address [address] [place] [address] Phone Care Team Providers Care Building Construction Professor Name Role Phone Debbie De Leon NP Primary Care Provider Sheba edgar Encounter Details Date Type Department Care Team (Late st Contact Info) Description 05/25/2017 Conversion Encounter [facility] - [address] [id number] Social History Tobacco Use Types Packs/Day Years [...] on filedocumented in this encounter Care Teams Building Construction Professor Relationship Specialty Start Date End Date Debbie De Leon NP PCP - General 05/19/17 01/19/23 documented as of this encounter
== END 2025-06-04 11:13 | disposition home or self-care (01) ==
LOC: HO.HGS 10:53
PROVIDERS: PCP Internal Medicine; Visit Provider Surgery
DX: K60.1 Chronic anal fissure (principal)
CPT/HCPCS: 99024

== ENCOUNTER → 2025-06-04 10:52 | Outpatient (BNVA) | payer OTHER, SELFPAY | PROVIDERS: PCP Internal Medicine; Visit Provider Surgery | DX: K60.1 Chronic anal fissure (principal) | CPT/HCPCS: 99212 ==